=== PATIENT | female | born 1980 | race Caucasian/White ===

== ENCOUNTER 2016-07-21 12:34 | Inpatient (IN) | payer OTHER ==
[~2016-07-21] VITALS: Ht 165.1 cm; Wt 79.9 kg
[~2016-07-21 12:34] MED LIST: AMBI10TA PO; CIPR500T89 PO; CITA20TA4 PO; COLA100C PO; FLAG500T PO; GABA300C3 PO; IBUP-1114 PO; MELA0.02 PO; MELA3TAB PO; NORCOTAB PO; PREN1TAB11 PO; SERO200T PO; TYLE325T5 PO; ZOFR4TAB3 PO
--- NOTE | 2016-07-21 13:59 | REP ---
Clinical: Right upper quadrant pain and biliary colic. Comparison: 07/15/2016. Findings: Gallbladder is again distended and there is sonographic Cummings sign along with minimal common bile duct dilatation to 7.5 mm. Sludge identified on prior examination is less visible on current examination. No obvious gallstones, wall thickening or pericholecystic fluid is appreciated. Liver and pancreas are normal in contour, size, echogenicity without focal hepatic or pancreatic lesions identified. The right kidney is normal and measures 11.1 x 4.7 x 5.1 cm. No ascites. Impression: Hydropic appearance to the gallbladder with positive sonographic Cummings's sign and minimal common bile duct dilatation suggest the possibility of acalculous cholecystitis. Signed by Yao Ruiz MD 07/21/2016 01:50 P
[2016-07-21] MEDS ORDERED: MORPHINE 4 MG/ML 1ML SYRINGE As Ordered ONE (14:12)
[2016-07-21] MEDS ORDERED: PROMETHAZINE INJ 25 MG/ML VIAL (J2550) As Ordered ONE (14:13)
[2016-07-21 14:22] LABS: BASO # 0.2 K/mm3 (0.0-0.2); BASO % 1.1 % (0.0-1.0); EOS # 0.3 K/mm3 (0.0-0.50); EOS % 1.9 % (0.0-3.0); LARGE UNSTAINED CELL # 0.4 K/mm3 (0.0-0.4); LARGE UNSTAINED CELL % 2.3 % (0.0-4.0); LYMPH # 2.7 K/mm3 (1.5-4.5); LYMPH % 13.3 % (24.0-44.0); MEAN CORPUSCULAR HEMOGLOBIN 29.7 pg (27.0-33.0); MEAN CORPUSCULAR HGB CONC 31.4 g/dl (32.0-36.5); MEAN CORPUSCULAR VOLUME 94.5 fl (80.0-96.0); MONO # 0.9 K/mm3 (0.0-0.8); MONO % 4.8 % (0.0-5.0); NEUTROPHILS # 13.4 K/mm3 (1.8-7.7); NEUTROPHILS % 76.7 % (36.0-66.0); PLATELET COUNT, AUTOMATED 734 k/mm3 (150-450); RED CELL DISTRIBUTION WIDTH 14.3 % (11.5-14.5); WHITE BLOOD COUNT 17.5 K/mm3 (4.0-10.0)
[2016-07-21 14:47] LABS: ALBUMIN 2.7 GM/DL (3.2-5.2); ALBUMIN/GLOBULIN RATIO 0.68 (1.00-1.93); ALKALINE PHOSPHATASE 78 U/L (45-117); ALT/SGPT 19 U/L (12-78); ANION GAP 10 MEQ/L (8-16); AST/SGOT 15 U/L (15-37); BILIRUBIN,DIRECT < 0.1 MG/DL (0.0-0.2); BILIRUBIN,TOTAL 0.2 MG/DL (0.2-1.0); BLOOD UREA NITROGEN 8 MG/DL (7-18); CALCIUM LEVEL 8.7 MG/DL (8.5-10.1); CARBON DIOXIDE LEVEL 26 MEQ/L (21-32); CHLORIDE LEVEL 107 MEQ/L (98-107); CREATININE FOR GFR 0.83 MG/DL (0.55-1.02); GLOMERULAR FILTRATION RATE > 60.0 (>60); GLUCOSE, FASTING 91 MG/DL (70-105); SODIUM LEVEL 143 MEQ/L (136-145); TOTAL PROTEIN 6.7 GM/DL (6.4-8.2)
[2016-07-21] MEDS ORDERED: ONDANSETRON 4MG/2ML VIAL (J2405) As Ordered ONE (15:04)
[2016-07-21] MEDS ORDERED: KETOROLAC 30 MG/ML VIAL (J1885) As Ordered ONE (15:04)
[2016-07-21] MEDS ORDERED: KETOROLAC 30 MG/ML VIAL (J1885) IV PRN (15:15)
[2016-07-21] MEDS ORDERED: ACETAMINOPHEN TAB 650MG DOSE (2X325MG) PO PRN (15:15)
[2016-07-21] MEDS ORDERED: ONDANSETRON 4MG/2ML VIAL (J2405) IV PRN (15:15)
[2016-07-21] MEDS ORDERED: HYDR1TAB97 PO (15:19)
[2016-07-21] MEDS ORDERED: FLAG500T PO (15:19)
[2016-07-21] MEDS ORDERED: CIPR500T3 PO (15:19)
[2016-07-21 16:18] VITALS: BP 114/64
--- NOTE | 2016-07-21 16:28 | EDDOCDS ---
Nurse's Notes [facility] Name: Spring Sample Age: 36 yrs Sex: Female : 1980 Arrival Date: 07/21/2016 Time: 12:34 Bed 19 Private MD: BJ Boss Diagnosis: Hydrops of gallbladder;Colic Presentation: 07/21 12:56 Presenting complaint: Patient states: that she was supposed to have surgery to remove ms18 her gallbladder and is now c/o NVD today and was told by her doctor to come to the ER to be evaluated. Adult Sepsis Screening: The patient does not have new or worsening altered mentation. Patient's respiratory rate is less than 22. Systolic blood pressure is greater than 100. Patient has a qSOFA score of 0- Negative Sepsis Screen. Suicide/Homicide risk assessment- the patient denies having any suicidal and/or homicidal ideations and does not present with any other emotional, behavioral or mental health complaints. Status: The patient is a dependent. is retired . Transition of care: patient was not received from another setting of care. 12:56 Acuity: BULMARO Level 3 ms18 12:56 Method Of Arrival: Walkin/Carried/Asstd ms18 Triage Assessment: 13:00 General: Appears in no apparent distress, comfortable, Behavior is appropriate for age, ms18 cooperative. Pain: Location: right upper quadrant and left upper quadrant Pain currently is 9 out of 10 on a pain scale. HIV screening NA for this visit. Neurological: No deficits noted. Respiratory: No deficits noted. GI: Abdomen is non- distended Reports diarrhea, nausea, vomiting. Derm: Skin is pink, warm & dry. normal. 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 Ambien 10 mg Oral tab 1 tab once daily 2. Seroquel 200 mg oral tab 1 tab nightly 3. melatonin 10 mg Oral tab nightly 4. citalopram 40 mg Oral tab 1 tab once daily 5. hydrocodone every 6 hours as needed, not sure of the dose - PMHx: Anxiety; Depression; PTSD; - PSHx: Breast Augmentation; D & C; Tonsillectomy; - Social history: Smoking status: Patient uses tobacco products, current some day smoker. No barriers to communication noted, The patient speaks fluent Haitian. - Family history: Not pertinent. - : The pt / caregiver states he / she is not on anticoagulants. Home medication list is obtained from the patient. - Exposure Risk Screening:: None identified. Screenin:13 Screening information is obtained from the patient. Primary language is Haitian. Fall jam1 risk: No risks identified. Assistance ADL's: requires no assistance with activities of daily living. Abuse/DV Screen: The patient / caregiver reports he/she is: not in a situation that causes fear, pain or injury. Nutritional screening: No deficits noted. Exposure Risk Screening: None identified. Advance Directives: Currently, there is no health care proxy. There is no active DNR order. There is no living will. There is no Power of Dining Car Steward. Advance directive information has not previously been placed in an [facility] medical record. Further advance directive information is declined. home support is adequate. Assessment: 14:17 General: Appears in no apparent distress, uncomfortable, Behavior is appropriate for [facility] age, cooperative, pleasant. Pain: Location: right upper quadrant and left upper quadrant Pain currently is 9 out of 10 on a pain scale. Neurological: Level of Consciousness is awake, alert, Oriented to person, place, time. Respiratory: Airway is patent Respiratory effort is even, unlabored, Respiratory pattern is regular, symmetrical. GI: Abdomen is non- distended Bowel sounds present X 4 quads. Abd is soft and non tender X 4 quads. Reports nausea. Derm: Skin is. 14:17 Derm: Skin is pink, warm & dry. [facility] 15:15 General: Appears in no apparent distress, comfortable, Behavior is cooperative. Pain: lf1 Location: left upper quadrant and right upper quadrant Pain currently is 9 out of 10 on a pain scale. Neurological: Level of Consciousness is awake, alert, obeys commands. EENT: No deficits noted. Respiratory: Respiratory effort is even, unlabored, Breath sounds are clear bilaterally. GI: Abdomen is obese, Bowel sounds present X 4 quads. Abd is soft Abd is tender to palpation in right upper quadrant and left upper quadrant Reports upper abd pain, nausea. : No deficits noted. Derm: Skin is normal. Injury Description: No known injury. 16:00 General: Appears in no apparent distress, comfortable, Behavior is cooperative. Pain: jf3 Location: right upper quadrant, left upper quadrant and right lower quadrant Pain currently is 8 out of 10 on a pain scale. 16:00 Neurological: Level of Consciousness is awake, alert, Oriented to person, place, time. jf3 Cardiovascular: Capillary refill < 3 seconds Heart tones S1 S2 present Chest pain is denied. Respiratory: Airway is patent Respiratory effort is even, unlabored, Respiratory pattern is regular, symmetrical, Breath sounds are clear bilaterally. Denies shortness of breath at rest. GI: Abdomen is non- distended Bowel sounds present X 4 quads. Abd is soft X 4 quads Abd is tender to palpation in right upper quadrant and right lower quadrant Reports diarrhea, nausea, vomiting. Derm: Skin is pink, warm & dry. Vital Signs: 12:35 BP 148 / 88; Pulse 111; Resp 18 S; Temp 98.9(O); Pulse Ox 97% on R/A; Weight 78.93 kg dd6 (R); Height 5 ft. 5 in. (165.10 cm) (R); 15:15 BP 119 / 57; Pulse 77; Resp 16; Temp 96.7; Pulse Ox 97% ; Pain 9/10; lf1 16:00 BP 114 / 64; Pulse 75; Resp 18; Temp 97.9(O); Pulse Ox 98% on R/A; Pain 8/10; jf3 12:35 Body Mass Index 28.95 (78.93 kg, 165.10 cm) dd6 Vitals: 12:35 Log In Time: July 21, 2016 at 12:33. dd6 ED Course: 12:35 Patient visited by Vipul Hauser PCA. dd6 12:35 Karyn [facility] is Private Physician. dd6 12:35 Patient moved to Waiting dd6 12:36 Patient moved to Pre RCE dd6 12:58 Triage Initiated ms18 13:18 Bear Mahoney PA-C is PHCP. ar2 13:18 Bethany Yates MD is Attending Physician. ar2 13:28 Patient moved to Triage 1 ms18 13:31 Patient visited by Bear Mahoney PA-C. ar2 13:32 Patient moved to I5 / M5 ct3 14:07 [facility] Payment Agreement was scanned into [employer] and attached to record. jp5 14:13 Pt greeted and oriented to ED. Patient advised of names of staff involved in care, [facility] location of call griff[place], wait times and NPO status. Patient has correct armband on for positive identification. Placed in gown. Bed in low position. Call light in reach. Side rails up X 1. Door closed. 14:14 Patient name changed from Spring\S\\S\Sample\S\ to Spring\S\Jazmin\S\Sample. EDMS 14:14 BMP Sent. jmk 14:14 CBC with Diff Sent. jmk 14:14 Lipase Sent. jmk 14:14 Liver Profile Sent. jmk 14:17 The patient / caregiver is instructed regarding the plan of care and ED course. [facility] 14:17 Inserted saline lock: 20 gauge in left antecubital area and blood collected. The [facility] patient tolerated the procedure well. Labs drawn. (by ED staff). Sent per order to lab. 14:19 Patient visited by Florecita Brown RN. kr3 14:19 Gallbladder US Returned. EDMS 14:20 Patient visited by Karen Alcantar RN. [facility] 14:58 Sung Ferris DO is Hospitalizing Provider. ar2 15:14 Patient visited by Cherelle Eddy,DINESH. lf1 15:16 Patient visited by Karen Cummings PCA. jam1 15:20 Patient visited by Cherelle Eddy RN. lf1 15:36 Patient moved to [facility] 16:21 IV is intact, with fluids infusing freely, with good blood return, Flushed. No jf3 procedures done that require assistance. 16:24 Patient visited by Marcos Kasper RN. jf3 Administered Medications: 14:19 Drug: NS 0.9% 1000 ml [sodium chloride 0.9 % intravenous solution] Route: IV; Rate: kr3 bolus; Site: left antecubital; 16:25 Follow up: IV Status: Completed infusion; IV Intake: 1000ml jf3 14:19 Drug: Promethazine 12.5 mg [promethazine 25 mg/mL injection solution (0.5 mL)] Route: kr3 IVP; Site: left antecubital; 14:47 Follow up: Response: Nausea is resolved kr3 14:19 Drug: morphine 4 mg [morphine 4 mg/mL intravenous cartridge (1 mL)] Route: IVP; Site: kr3 left antecubital; 14:47 Follow up: Response: Pain is unchanged, physician notified kr3 15:14 Drug: Ondansetron 4 mg [ondansetron HCl 2 mg/mL intravenous solution (2 mL)] Route: lf1 IVP; Site: left antecubital; 15:15 Drug: ketorolac 30 mg [ketorolac 30 mg/mL (1 mL) injection solution (1 mL)] Route: IVP; lf1 Site: left antecubital; Point of Care Testing: Urine : 14:24 hCG Reading: Negative; jam1 Ranges: Intake: 16:25 IV: 1000.00ml; Total: 1000.00ml. jf3 Order Results: Lab Order: BMP; SPEC'M 07/21/16 14:13 Test: GLUCOSE, FASTING; Value: 91; Range: 70-105; Units: MG/DL; Status: F Test: BLOOD UREA NITROGEN; Value: 8; Range: 7-18; Units: MG/DL; Status: F Test: CREATININE FOR GFR; Value: 0.83; Range: 0.55-1.02; Units: MG/DL; Status: F Test: GLOMERULAR FILTRATION RATE; Value: > 60.0; Range: >60; Status: F Test: SODIUM LEVEL; Value: 143; Range: 136-145; Units: MEQ/L; Status: F Test: POTASSIUM SERUM; Value: 3.0; Range: 3.5-5.1; Abnormal: Below low normal; Units: MEQ/L; Status: F Test: CHLORIDE LEVEL; Value: 107; Range: 98-107; Units: MEQ/L; Status: F Test: CARBON DIOXIDE LEVEL; Value: 26; Range: 21-32; Units: MEQ/L; Status: F Test: ANION GAP; Value: 10; Range: 8-16; Units: MEQ/L; Status: F Test: CALCIUM LEVEL; Value: 8.7; Range: 8.5-10.1; Units: MG/DL; Status: F Test Note: ; Units are mL/min/1.73 m2 Chronic Kidney Disease Staging per NKF: Stage I & II GFR >=60 Normal to Mildly Decreased Stage III GFR 30-59 Moderately Decreased Stage IV GFR 15-29 Severely Decreased Stage V GFR <15 Very Little GFR Left ESRD GFR <15 on [employer] Lab Order: CBC with Diff; SPEC'M 07/21/16 14:13 Test: WHITE BLOOD COUNT; Value: 17.5; Range: 4.0-10.0; Abnormal: Above high normal; Units: K/mm3; Status: F Test: RED BLOOD COUNT; Value: 3.88; Range: 4.00-5.40; Abnormal: Below low normal; Units: M/mm3; Status: F Test: HEMOGLOBIN; Value: 11.5; Range: 12.0-16.0; Abnormal: Below low normal; Units: g/dl; Status: F Test: HEMATOCRIT; Value: 36.7; Range: 36.0-47.0; Units: %; Status: F Test: MEAN CORPUSCULAR VOLUME; Value: 94.5; Range: 80.0-96.0; Units: fl; Status: F Test: MEAN CORPUSCULAR HEMOGLOBIN; Value: 29.7; Range: 27.0-33.0; Units: pg; Status: F Test: MEAN CORPUSCULAR HGB CONC; Value: 31.4; Range: 32.0-36.5; Abnormal: Below low normal; Units: g/dl; Status: F Test: RED CELL DISTRIBUTION WIDTH; Value: 14.3; Range: 11.5-14.5; Units: %; Status: F Test: PLATELET COUNT, AUTOMATED; Value: 734; Range: 150-450; Abnormal: Above high normal; Units: k/mm3; Status: F Test: NEUTROPHILS %; Value: 76.7; Range: 36.0-66.0; Abnormal: Above high normal; Units: %; Status: F Test: LYMPH %; Value: 13.3; Range: 24.0-44.0; Abnormal: Below low normal; Units: %; Status: F Test: MONO %; Value: 4.8; Range: 0.0-5.0; Units: %; Status: F Test: EOS %; Value: 1.9; Range: 0.0-3.0; Units: %; Status: F Test: BASO %; Value: 1.1; Range: 0.0-1.0; Abnormal: Above high normal; Units: %; Status: F Test: LARGE UNSTAINED CELL %; Value: 2.3; Range: 0.0-4.0; Units: %; Status: F Test: NEUTROPHILS #; Value: 13.4; Range: 1.8-7.7; Abnormal: Above high normal; Units: K/mm3; Status: F Test: LYMPH #; Value: 2.7; Range: 1.5-4.5; Units: K/mm3; Status: F Test: MONO #; Value: 0.9; Range: 0.0-0.8; Abnormal: Above high normal; Units: K/mm3; Status: F Test: EOS #; Value: 0.3; Range: 0.0-0.50; Units: K/mm3; Status: F Test: BASO #; Value: 0.2; Range: 0.0-0.2; Units: K/mm3; Status: F Test: LARGE UNSTAINED CELL #; Value: 0.4; Range: 0.0-0.4; Units: K/mm3; Status: F Lab Order: Lipase; SPEC'M 07/21/16 14:13 Test: LIPASE; Value: 57; Range: 73-393; Abnormal: Below low normal; Units: U/L; Status: F Lab Order: Liver Profile; SPEC'M 07/21/16 14:13 Test: AST/SGOT; Value: 15; Range: 15-37; Units: U/L; Status: F Test: ALT/SGPT; Value: 19; Range: 12-78; Units: U/L; Status: F Test: ALKALINE PHOSPHATASE; Value: 78; Range: 45-117; Units: U/L; Status: F Test: BILIRUBIN,TOTAL; Value: 0.2; Range: 0.2-1.0; Units: MG/DL; Status: F Test: BILIRUBIN,DIRECT; Value: < 0.1; Range: 0.0-0.2; Units: MG/DL; Status: F Test: TOTAL PROTEIN; Value: 6.7; Range: 6.4-8.2; Units: GM/DL; Status: F Test: ALBUMIN; Value: 2.7; Range: 3.2-5.2; Abnormal: Below low normal; Units: GM/DL; Status: F Test: ALBUMIN/GLOBULIN RATIO; Value: 0.68; Range: 1.00-1.93; Abnormal: Below low normal; Status: F Radiology Order: Gallbladder US Test: Gallbladder US REASON FOR EXAMINATION: RUQ ;Biliary Colic/RUQ pain; Clinical: Right upper quadrant pain and biliary colic.; ; Comparison: 07/15/2016.; ; Findings:; Gallbladder is again distended and there is sonographic Cummings sign along with; minimal common bile duct dilatation to 7.5 mm. Sludge identified on prior; examination is less visible on current examination. No obvious gallstones, wall; thickening or pericholecystic fluid is appreciated.; ; Liver and pancreas are normal in contour, size, echogenicity without focal; hepatic or pancreatic lesions identified. The right kidney is normal and; measures 11.1 x 4.7 x 5.1 cm. No ascites.; ; Impression:; Hydropic appearance to the gallbladder with positive sonographic Cummings's sign; and minimal common bile duct dilatation suggest the possibility of acalculous; cholecystitis.; ; ; Signed by; Yao Ruiz MD 07/21/2016 01:50 P; Outcome: 14:18 Ultrasound Study completed. [facility] 14:59 Decision to Hospitalize by Provider. [facility] 16:21 Admission hand-off: Report called to Madelyn Pineda RN on PEDs. [facility] 16:25 Discharge Assessment: patient administered narcotics - yes. Patient was admitted to the [address] or transferred to another facility. The following High Risk Discharge criteria are identified: None. Admitted to Pediatrics accompanied by tech. Condition: stable. Property :Personal belongings accompany Pt. 16:27 Patient left the ED. [facility] Signatures: Dispatcher [employer] EDMS Wilian Pace,RN Karen Rock, SENIOR TECHNICAL SPECIALIST SENIOR TECHNICAL SPECIALIST jam1 Florecita Brown,RN RN kr3 Cherelle Eddy,RN RN lf1 Bear Mahoney, PA-Melita PA-C ar2 Vipul Hauser, SENIOR TECHNICAL SPECIALIST SENIOR TECHNICAL SPECIALIST dd6 Tona Strickland, SENIOR TECHNICAL SPECIALIST SENIOR TECHNICAL SPECIALIST ct3 Karen Alcantar RN RN [facility] Lea Brown,RN RN ms18 Irina Meredith jp5 Marcos Kasper,DINESH RN jf3 MTDD
--- NOTE | 2016-07-21 16:28 | EDDOCDS ---
Physician Documentation [facility] Name: Spring Sample Age: 36 yrs Sex: Female : 1980 Arrival Date: 07/21/2016 Time: 12:34 Bed 19 Private MD: BJ Boss Disposition: 07/21/16 14:59 Hospitalization ordered by Sung Ferris for Inpatient Admission. Preliminary diagnosis are Hydrops of gallbladder, Colic. - Bed requested for M PED. - Status is Inpatient Admission. jf3 - Condition is Stable. - Problem is new. - Symptoms are unchanged. Historical: - Allergies: no known allergies; - Home Meds: 1. Ambien 10 mg Oral tab 1 tab once daily 2. Seroquel 200 mg oral tab 1 tab nightly 3. melatonin 10 mg Oral tab nightly 4. citalopram 40 mg Oral tab 1 tab once daily 5. hydrocodone every 6 hours as needed, not sure of the dose - PMHx: Anxiety; Depression; PTSD; - PSHx: Breast Augmentation; D & C; Tonsillectomy; - Social history: Smoking status: Patient uses tobacco products, current some day smoker. No barriers to communication noted, The patient speaks fluent Nepalese. - Family history: Not pertinent. - : The pt / caregiver states he / she is not on anticoagulants. Home medication list is obtained from the patient. - Exposure Risk Screening:: None identified. 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 5 in. (165.10 cm) (R); 15:15 BP 119 / 57; Pulse 77; Resp 16; Temp 96.7; Pulse Ox 97% ; Pain 9/10; lf1 16:00 BP 114 / 64; Pulse 75; Resp 18; Temp 97.9(O); Pulse Ox 98% on R/A; Pain 8/10; jf3 12:35 Body Mass Index 28.95 (78.93 kg, 165.10 cm) dd6 MDM: 12:42 If pre-RCE wait time >60 minutes, inform reg. staff to do full reg ordered. ar2 12:42 If pt is female >10yo <50yo order UCG ordered. ar2 12:42 Undress patient appropriately for examination ordered. ar2 12:42 Gallbladder US Ordered. EDMS 12:43 BMP Ordered. EDMS 12:43 CBC with Diff Ordered. EDMS 12:43 Lipase Ordered. EDMS 12:44 Liver Profile Ordered. EDMS 13:31 IV Saline Lock ordered. ar2 13:51 NS 0.9% 1000 ml IV at bolus once ordered. ar2 13:51 Promethazine 12.5 mg IVP once; dilute and administer 30-60 minutes ordered. ar2 13:51 morphine 4 mg IVP once ordered. ar2 14:07 [facility] Payment Agreement was scanned into [employer] and attached to record. jp5 14:07 Financial registration complete. jp5 14:19 UCG by Nursing ordered. [facility] 14:43 CBC with Diff Reviewed. ar2 14:43 Gallbladder US Reviewed. ar2 14:53 BMP Reviewed. ar2 14:53 Lipase Reviewed. ar2 14:53 Liver Profile Reviewed. ar2 14:57 ketorolac 30 mg IVP once ordered. ar2 14:57 Ondansetron 4 mg IVP once ordered. ar2 14:58 BED REQUEST+ADM ordered. EDMS 15:17 Admission / Observation Status ordered. EDMS 15:17 REGULAR DIET ordered. EDMS 15:17 NPO DIET ordered. EDMS Point of Care Testing: Urine : 14:24 hCG Reading: Negative; jam1 Ranges: Administered Medications: 14:19 Drug: NS 0.9% 1000 ml [sodium chloride 0.9 % intravenous solution] Route: IV; Rate: kr3 bolus; Site: left antecubital; 16:25 Follow up: IV Status: Completed infusion; IV Intake: 1000ml jf3 14:19 Drug: Promethazine 12.5 mg [promethazine 25 mg/mL injection solution (0.5 mL)] Route: kr3 IVP; Site: left antecubital; 14:47 Follow up: Response: Nausea is resolved kr3 14:19 Drug: morphine 4 mg [morphine 4 mg/mL intravenous cartridge (1 mL)] Route: IVP; Site: kr3 left antecubital; 14:47 Follow up: Response: Pain is unchanged, physician notified kr3 15:14 Drug: Ondansetron 4 mg [ondansetron HCl 2 mg/mL intravenous solution (2 mL)] Route: lf1 IVP; Site: left antecubital; 15:15 Drug: ketorolac 30 mg [ketorolac 30 mg/mL (1 mL) injection solution (1 mL)] Route: IVP; lf1 Site: left antecubital; Signatures: Dispatcher [employer] EDBear Copeland PA-C PA-C ar2 Karen Alcantar,RN RN giorgio Lea BrownRN RN ms18 Irina Meredith jp5 Marcos KasperRN RN jf3 Cherelle Jacobson RN RN [facility] Florecita Brown RN kr3 Cherelle Eddy RN lf1 The chart was reviewed and I authenticate all verbal orders and agree with the evaluation and treatment provided.Attachments: 14:07 [facility] Payment Agreement jp5 MTDD
[2016-07-21 16:30] VITALS: BP 118/63
[2016-07-21] MEDS: metroNIDAZOLE 500 MG in APPROPRIATE DILUENT 1 EA IV SCH ×2 (16:54→22:06)
[2016-07-21] MEDS: PANTOPRAZOLE 40MG TAB (PROTONIX) PO SCH (16:55)
[2016-07-21] MEDS: KCL 20MEQ IN D5/0.45NS 1000ML 1,000 ML IV SCH (16:55)
[2016-07-21] MEDS: CIPROFLOXACIN 400 MG in APPROPRIATE DILUENT 1 EA IV SCH (17:53)
[2016-07-21] MEDS: NORCO, ANEXSIA 5/325MG TABLET (HYDROcodone/ACETAMINOPHEN) PO PRN (17:54)
[2016-07-21] MEDS: MORPHINE 2 MG/ML 1ML SYRINGE IV PRN ×2 (18:48→21:17)
[2016-07-21 20:00] VITALS: BP 129/59
[2016-07-21] MEDS: HEPARIN SOD (PORCINE) 5000 UNITS/ML VIAL SC SCH (21:09)
[2016-07-21] MEDS: SENOKOT S TAB PO SCH (21:09)
[2016-07-21] MEDS: QUEtiapine FUMARATE 200 MG TAB PO SCH (21:10)
[2016-07-21] MEDS: GABAPENTIN 300 MG CAP PO SCH (21:10)
[2016-07-21] MEDS: zolPIDEM TARTRATE 5 MG TAB PO SCH (21:10)
[2016-07-21] MEDS: KETOROLAC 30 MG/ML VIAL (J1885) IV PRN (22:07)
[2016-07-22] VITALS (10 sets, daily range): BP systolic 88–130; BP diastolic 51–72
[2016-07-22] MEDS: MORPHINE 2 MG/ML 1ML SYRINGE IV PRN (03:45)
[2016-07-22] MEDS: CIPROFLOXACIN 400 MG in APPROPRIATE DILUENT 1 EA IV SCH ×2 (04:25→17:36)
[2016-07-22] MEDS: KCL 20MEQ IN D5/0.45NS 1000ML 1,000 ML IV SCH ×3 (04:25→14:44)
[2016-07-22] MEDS: metroNIDAZOLE 500 MG in APPROPRIATE DILUENT 1 EA IV SCH ×4 (05:27→22:59)
[2016-07-22 06:46] LABS: MEAN CORPUSCULAR HEMOGLOBIN 29.9 pg (27.0-33.0); MEAN CORPUSCULAR HGB CONC 31.9 g/dl (32.0-36.5); MEAN CORPUSCULAR VOLUME 93.8 fl (80.0-96.0); RED CELL DISTRIBUTION WIDTH 13.7 % (11.5-14.5); WHITE BLOOD COUNT 11.6 K/mm3 (4.0-10.0)
[2016-07-22 06:53] LABS: ANION GAP 9 MEQ/L (8-16); BLOOD UREA NITROGEN 10 MG/DL (7-18); CALCIUM LEVEL 7.8 MG/DL (8.5-10.1); CARBON DIOXIDE LEVEL 25 MEQ/L (21-32); CHLORIDE LEVEL 111 MEQ/L (98-107); GLOMERULAR FILTRATION RATE > 60.0 (>60); GLUCOSE, FASTING 89 MG/DL (70-105); MAGNESIUM LEVEL 1.8 MG/DL (1.8-2.4); POTASSIUM SERUM 3.1 MEQ/L (3.5-5.1); SODIUM LEVEL 145 MEQ/L (136-145)
[2016-07-22] MEDS: PANTOPRAZOLE 40MG TAB (PROTONIX) PO SCH (08:20)
[2016-07-22] MEDS: KETOROLAC 30 MG/ML VIAL (J1885) IV PRN ×2 (08:21→20:18)
[2016-07-22] MEDS: CitaloPRAM (CeleXA) 20 MG TAB PO SCH (08:21)
[2016-07-22] MEDS: SENOKOT S TAB PO SCH ×2 (08:35→20:17)
[2016-07-22] MEDS: HEPARIN SOD (PORCINE) 5000 UNITS/ML VIAL SC SCH ×2 (08:35→20:16)
--- NOTE | 2016-07-22 09:21 | HPE ---
DATE: 07/21/2016 CHIEF COMPLAINT: Right upper quadrant pain. HISTORY OF PRESENT ILLNESS: The patient is a 36-year-old female who originally came the ER last Thursday with nausea, vomiting, right upper quadrant pain that had been going on for about 12 days. She is discharged home, came back again on had similar symptoms and she was diagnosed with likely acute cholecystitis. She was kept overnight started on IV antibiotics in the morning of 07/18 she was feeling much improved. White count came down from 16 to 11. She wanted to wait and use the antibiotics for 2 weeks and then have her gallbladder out in 2 weeks after the inflammation had improved. However, over this weekend, she had persistent right upper quadrant pain with increasing nausea and vomiting. She called me this morning and said that she could not wait any longer and I had her come into the emergency room to be checked out make sure she did not have any choledocholithiasis or pancreatitis. That was checked out, therefore, they called me to admit her with a plan for cholecystectomy today or tomorrow. PAST MEDICAL HISTORY: Anxiety, depression, Post-traumatic stress disorder (PTSD). PAST SURGERIES: Eye surgery, tonsillectomy, breast augmentation, D C. HOME MEDICATIONS: - Ambien - citalopram - Seroquel - melatonin ALLERGIES: None. SOCIAL HISTORY: Denies any drug or alcohol abuse. Smokes daily. FAMILY HISTORY: Noncontributory. REVIEW OF SYSTEMS: Pertinent positives and negatives stated in the HPI. PHYSICAL EXAMINATION: General: Alert and oriented times three. No acute stress. Vitals: Stable, afebrile. HEENT: Pupils equal round react to light accommodation. Heart: S1-S2 regular rate. Lungs: Clear to auscultation bilaterally. Abdomen: Soft, tender to palpation right upper quadrant. No rebound, guarding, rigidity. Bowel sounds positive. Extremities: No clubbing, cyanosis or edema. LABORATORY DATA: White count 17.5, hemoglobin 11.5, platelets 734, potassium 3, sodium 143, total bilirubin 0.2, AST 15, ALT 99, alkaline phosphatase 78, lipase 57. IMAGING STUDIES: Gallbladder ultrasound shows a distended gallbladder without any signs of gallstones wall thickening or pericholecystic fluid. Impression is hydropic appearance of the gallbladder with a positive sonographic Cummings's sign likely suggesting acalculous cholecystitis. ASSESSMENT/PLAN: The patient is a 36-year-old female with likely acute cholecystitis. Recommendation at this time is to admit her and keep her nothing by mouth after midnight and start her on IV fluids with the plan for laparoscopic cholecystectomy tomorrow. Risks of the procedure have been discussed in detail with the patient not limited to but including bleeding, infection, hernia formation, damage to surrounding structures, and possible need for further surgery. She understands and will be scheduled for tomorrow afternoon.
[2016-07-22] MEDS ORDERED: LIDOCAINE 2% INJ 100 MG/5 ML SDV (FOR ANES.) As Ordered ONE (10:43)
[2016-07-22] MEDS ORDERED: fentaNYL 100 MCG/2 ML INJECTION (J3010) As Ordered ONE ×3 (10:43→13:22)
[2016-07-22] MEDS ORDERED: ROCURONIUM BROMIDE 50 MG/5 ML VIAL As Ordered ONE (10:43)
[2016-07-22] MEDS ORDERED: PROPOFOL 200 MG/20 ML VIAL As Ordered ONE (10:43)
[2016-07-22] MEDS ORDERED: MIDAZOLAM INJ 2 MG/2 ML VIAL (J2250) As Ordered ONE (10:43)
[2016-07-22] MEDS ORDERED: ONDANSETRON 4MG/2ML VIAL (J2405) As Ordered ONE (10:44)
[2016-07-22] MEDS ORDERED: NEOSTIGMINE 1MG/ML 5 ML SYRINGE (J2710) As Ordered ONE (10:44)
[2016-07-22] MEDS ORDERED: GLYCOPYRROLATE INJ 0.2 MG/ML 2 ML VIAL As Ordered ONE (10:44)
[2016-07-22] MEDS ORDERED: BUPIVACAINE/EPIN 0.25% 30 ML VIAL As Ordered ONE (10:47)
[2016-07-22] MEDS ORDERED: KETOROLAC 60 MG/2 ML VIAL (J1885) As Ordered ONE (10:49)
[2016-07-22] MEDS ORDERED: BUPIVACAINE/EPIN 0.25% 30 ML VIAL XX ONE (12:31)
[2016-07-22] MEDS: fentaNYL 100 MCG/2 ML INJECTION (J3010) IV PRN ×6 (13:03→13:30)
[2016-07-22] MEDS ORDERED: LR 1,000 ML IV SCH (13:15)
[2016-07-22] MEDS ORDERED: ONDANSETRON 4MG/2ML VIAL (J2405) IV PRN (13:15)
[2016-07-22] MEDS ORDERED: HYDROmorphone HCL 1 MG/ML SYRINGE (J1170) IV PRN (13:15)
[2016-07-22] MEDS ORDERED: PERCOCET 5MG/325MG TAB As Ordered ONE ×2 (13:50→14:13)
[2016-07-22] MEDS: PERCOCET 5MG/325MG TAB PO PRN ×2 (13:52→14:15)
[2016-07-22] MEDS ORDERED: KCL 20MEQ IN D5/.45NACL 1000ML As Ordered ONE (14:13)
--- NOTE | 2016-07-22 17:29 | RO ---
DATE OF PROCEDURE: 07/22/2016 PREOPERATIVE DIAGNOSIS: Acute cholecystitis. POSTOPERATIVE DIAGNOSIS: Acute cholecystitis. PROCEDURE: Laparoscopic cholecystectomy. SURGEON: Dr. Sung Ferris RETURNED GOODS RECEIVING CLERK: None. ANESTHESIA: General. ESTIMATED BLOOD LOSS: 10 mL. COMPLICATIONS: None. INDICATIONS FOR PROCEDURE: The patient is a 36-year-old female who has had persistent right upper quadrant abdominal pain, nausea, vomiting and elevated white count for the past week. She has been into the emergency room (ER) twice. She tried outpatient therapy with antibiotics which failed; therefore, plan is for laparoscopic cholecystectomy. Risks and benefits of the procedure not limited to but including bleeding, infection, hernia formation, damage to surrounding structures, need for further surgery were discussed in detail with the patient. Informed consent was obtained and procedure was planned. DESCRIPTION OF PROCEDURE: The patient was brought back to operating room #4. After sufficient sedation, the abdomen was sterilely prepped and draped. Next, a time-out was done to confirm proper patient, proper procedure. Following that, a stab incision was made in the left upper quadrant. Veress needle was inserted and the abdomen was insufflated to 15 mmHg. Next, a 5 mm umbilical incision was made. 5 mm OptiView port was then used to gain access to the abdomen. Once the abdomen was entered, Veress needle site was examined. There were no signs of injury. Veress needle was then removed, 10 mm port was placed subxiphoid, two 5 mm ports in the right upper quadrant. Gallbladder was grasped and elevated up towards the right shoulder. Cystic duct, cystic artery were both then dissected free using a combination of blunt and sharp dissection. Once they were both clearly identified, they were both doubly clipped and cut. Cystic duct was very large so after it was completely dissected, it was clipped, cut and then a PDS Endoloop was placed around the base of it to make sure that it was ligated completely. Once this was completed, the gallbladder was removed using electrocautery and brought out through the subxiphoid port site in a 10 mm EndoCatch bag. The right upper quadrant was irrigated to confirm hemostasis. The abdomen was then desufflated. Skin incisions were closed with #4-0 Vicryl subcuticular sutures. The abdomen was cleaned and dried. Steri-Strips, 4 x 4 and tape were applied thus ending the procedure.
[2016-07-22] MEDS: NORCO, ANEXSIA 5/325MG TABLET (HYDROcodone/ACETAMINOPHEN) PO PRN ×2 (18:42→23:00)
[2016-07-22] MEDS: QUEtiapine FUMARATE 200 MG TAB PO SCH (20:16)
[2016-07-22] MEDS: GABAPENTIN 300 MG CAP PO SCH (20:17)
[2016-07-22] MEDS: zolPIDEM TARTRATE 5 MG TAB PO SCH (20:17)
[2016-07-23] VITALS: BP 119/66
[2016-07-23] MEDS: KCL 20MEQ IN D5/0.45NS 1000ML 1,000 ML IV SCH (01:08)
[2016-07-23 04:00] VITALS: BP 103/63
[2016-07-23] MEDS: KETOROLAC 30 MG/ML VIAL (J1885) IV PRN (04:14)
[2016-07-23] MEDS: metroNIDAZOLE 500 MG in APPROPRIATE DILUENT 1 EA IV SCH (04:14)
[2016-07-23] MEDS: CIPROFLOXACIN 400 MG in APPROPRIATE DILUENT 1 EA IV SCH (05:54)
[2016-07-23] MEDS: NORCO, ANEXSIA 5/325MG TABLET (HYDROcodone/ACETAMINOPHEN) PO PRN (05:55)
[2016-07-23 06:58] LABS: MEAN CORPUSCULAR HEMOGLOBIN 30.1 pg (27.0-33.0); MEAN CORPUSCULAR HGB CONC 31.3 g/dl (32.0-36.5); MEAN CORPUSCULAR VOLUME 96.3 fl (80.0-96.0); RED CELL DISTRIBUTION WIDTH 14.6 % (11.5-14.5); WHITE BLOOD COUNT 11.1 K/mm3 (4.0-10.0)
[2016-07-23 07:08] LABS: ANION GAP 8 MEQ/L (8-16); BLOOD UREA NITROGEN 5 MG/DL (7-18); CARBON DIOXIDE LEVEL 25 MEQ/L (21-32); CHLORIDE LEVEL 113 MEQ/L (98-107); GLOMERULAR FILTRATION RATE > 60.0 (>60); GLUCOSE, FASTING 103 MG/DL (70-105); MAGNESIUM LEVEL 1.8 MG/DL (1.8-2.4); SODIUM LEVEL 146 MEQ/L (136-145)
[2016-07-23 08:00] VITALS: BP 110/66
[2016-07-23] MEDS: SENOKOT S TAB PO SCH (08:11)
[2016-07-23] MEDS: CitaloPRAM (CeleXA) 20 MG TAB PO SCH (08:11)
[2016-07-23] MEDS: PANTOPRAZOLE 40MG TAB (PROTONIX) PO SCH (08:11)
[2016-07-23] MEDS: HEPARIN SOD (PORCINE) 5000 UNITS/ML VIAL SC SCH (08:12)
[2016-07-23] MEDS ORDERED: SENN1TAB2 PO (08:39)
[2016-07-23] MEDS ORDERED: NORCOTAB PO (08:39)
[2016-07-23] MEDS ORDERED: INFLUENZA QUADRIVALENT PF VACCINE 0.5ML SYRINGE/VIAL (90686) IM ONE (09:00)
--- NOTE | 2016-07-23 09:33 | DSES ---
DATE OF ADMISSION: 07/21/2016 DATE OF DISCHARGE: 07/23/2016 ADMISSION DIAGNOSIS: Acute cholecystitis. DISCHARGE DIAGNOSIS: Acute cholecystitis. HOSPITAL COURSE: Patient is 28-year-old female presenting with a history of right upper quadrant abdominal pain and was diagnosed with acute cholecystitis in the ER on the second. She was kept overnight with plan for surgery on the third. On the third she underwent a laparoscopic cholecystectomy around noon. Procedure went as planned. Postoperatively she was walking, urinating without any difficulty pain was controlled a much improved in the right upper quadrant. Nausea and vomiting were improved and she was tolerating diet. This morning her white count is down to 11.1 from 17.5 on admission. Her abdomen is soft, tender to palpation appropriately. Incisions are clean, dry and intact. No nausea or vomiting overnight and is still tolerating diet. Plan is for discharge home today in followup me in the office in 2 weeks. PROCEDURES: On 07/22/2016 had laparoscopic cholecystectomy. PLAN: Discharge home today on follow up me in the office in 2 weeks. She was given prescriptions for Woodlyn and senna plus on discharge. No lifting more 20 pounds for next 2 weeks. No hot tubs, baths or pools for 5 days and okay to shower once she gets home.
--- NOTE | 2016-07-23 17:28 | EDDOCDS ---
Physician Documentation [facility] Name: Spring Sample Age: 36 yrs Sex: Female : 1980 Arrival Date: 07/21/2016 Time: 12:34 Bed 19 Private MD: BJ Boss Disposition: 07/21/16 14:59 Hospitalization ordered by Sung Ferris for Inpatient Admission. Preliminary diagnosis are Hydrops of gallbladder, Colic. - Bed requested for M PED. - Status is Inpatient Admission. jf3 - Condition is Stable. - Problem is new. - Symptoms are unchanged. Historical: - Allergies: no known allergies; - Home Meds: 1. Ambien 10 mg Oral tab 1 tab once daily 2. Seroquel 200 mg oral tab 1 tab nightly 3. melatonin 10 mg Oral tab nightly 4. citalopram 40 mg Oral tab 1 tab once daily 5. hydrocodone every 6 hours as needed, not sure of the dose - PMHx: Anxiety; Depression; PTSD; - PSHx: Breast Augmentation; D & C; Tonsillectomy; - Social history: Smoking status: Patient uses tobacco products, current some day smoker. No barriers to communication noted, The patient speaks fluent Vietnamese. - Family history: Not pertinent. - : The pt / caregiver states he / she is not on anticoagulants. Home medication list is obtained from the patient. - Exposure Risk Screening:: None identified. 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 5 in. (165.10 cm) (R); 15:15 BP 119 / 57; Pulse 77; Resp 16; Temp 96.7; Pulse Ox 97% ; Pain 9/10; lf1 16:00 BP 114 / 64; Pulse 75; Resp 18; Temp 97.9(O); Pulse Ox 98% on R/A; Pain 8/10; jf3 12:35 Body Mass Index 28.95 (78.93 kg, 165.10 cm) dd6 MDM: 12:42 If pre-RCE wait time >60 minutes, inform reg. staff to do full reg ordered. ar2 12:42 If pt is female >10yo <50yo order UCG ordered. ar2 12:42 Undress patient appropriately for examination ordered. ar2 12:42 Gallbladder US Ordered. EDMS 12:43 BMP Ordered. EDMS 12:43 CBC with Diff Ordered. EDMS 12:43 Lipase Ordered. EDMS 12:44 Liver Profile Ordered. EDMS 13:31 IV Saline Lock ordered. ar2 13:51 NS 0.9% 1000 ml IV at bolus once ordered. ar2 13:51 Promethazine 12.5 mg IVP once; dilute and administer 30-60 minutes ordered. ar2 13:51 morphine 4 mg IVP once ordered. ar2 14:07 [facility] Payment Agreement was scanned into [employer] and attached to record. jp5 14:07 Financial registration complete. jp5 14:19 UCG by Nursing ordered. [facility] 14:43 CBC with Diff Reviewed. ar2 14:43 Gallbladder US Reviewed. ar2 14:53 BMP Reviewed. ar2 14:53 Lipase Reviewed. ar2 14:53 Liver Profile Reviewed. ar2 14:57 ketorolac 30 mg IVP once ordered. ar2 14:57 Ondansetron 4 mg IVP once ordered. ar2 14:58 BED REQUEST+ADM ordered. EDMS 15:17 Admission / Observation Status ordered. EDMS 15:17 REGULAR DIET ordered. EDMS 15:17 NPO DIET ordered. EDMS 07/22 06:11 T-Sheet-- Draft Copy was scanned into [employer] and attached to record. [facility] Point of Care Testing: Urine : 07/21 14:24 hCG Reading: Negative; jam1 Ranges: Administered Medications: 14:19 Drug: NS 0.9% 1000 ml [sodium chloride 0.9 % intravenous solution] Route: IV; Rate: kr3 bolus; Site: left antecubital; 16:25 Follow up: IV Status: Completed infusion; IV Intake: 1000ml jf3 14:19 Drug: Promethazine 12.5 mg [promethazine 25 mg/mL injection solution (0.5 mL)] Route: kr3 IVP; Site: left antecubital; 14:47 Follow up: Response: Nausea is resolved kr3 14:19 Drug: morphine 4 mg [morphine 4 mg/mL intravenous cartridge (1 mL)] Route: IVP; Site: kr3 left antecubital; 14:47 Follow up: Response: Pain is unchanged, physician notified kr3 15:14 Drug: Ondansetron 4 mg [ondansetron HCl 2 mg/mL intravenous solution (2 mL)] Route: lf1 IVP; Site: left antecubital; 15:15 Drug: ketorolac 30 mg [ketorolac 30 mg/mL (1 mL) injection solution (1 mL)] Route: IVP; lf1 Site: left antecubital; Signatures: Dispatcher [employer] EDMS Bear Mahoney PA-C PA-C ar2 Karen AlcantarRN RN Lea Herzog RN RN ms18 Manjitl, Irina Orr jp5 Marcos Kasper,RN RN jf3 Cherelle Jacobson RN RN lmg Florecita Brown RN kr3 Cherelle Eddy RN lf1 The chart was reviewed and I authenticate all verbal orders and agree with the evaluation and treatment provided.Attachments: 14:07 [facility] Payment Agreement jp5 07/22 06:11 T-Sheet-- Draft Copy min Chart Complete MTDD
--- NOTE | 2016-07-23 17:28 | EDDOCDS ---
Nurse's Notes [facility] Name: Spring Sample Age: 36 yrs Sex: Female : 1980 Arrival Date: 07/21/2016 Time: 12:34 Bed 19 Private MD: BJ Boss Diagnosis: Hydrops of gallbladder;Colic Presentation: 07/21 12:56 Presenting complaint: Patient states: that she was supposed to have surgery to remove ms18 her gallbladder and is now c/o NVD today and was told by her doctor to come to the ER to be evaluated. Adult Sepsis Screening: The patient does not have new or worsening altered mentation. Patient's respiratory rate is less than 22. Systolic blood pressure is greater than 100. Patient has a qSOFA score of 0- Negative Sepsis Screen. Suicide/Homicide risk assessment- the patient denies having any suicidal and/or homicidal ideations and does not present with any other emotional, behavioral or mental health complaints. Status: The patient is a dependent. is retired . Transition of care: patient was not received from another setting of care. 12:56 Acuity: BULMARO Level 3 ms18 12:56 Method Of Arrival: Walkin/Carried/Asstd ms18 Triage Assessment: 13:00 General: Appears in no apparent distress, comfortable, Behavior is appropriate for age, ms18 cooperative. Pain: Location: right upper quadrant and left upper quadrant Pain currently is 9 out of 10 on a pain scale. HIV screening NA for this visit. Neurological: No deficits noted. Respiratory: No deficits noted. GI: Abdomen is non- distended Reports diarrhea, nausea, vomiting. Derm: Skin is pink, warm & dry. normal. 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 Ambien 10 mg Oral tab 1 tab once daily 2. Seroquel 200 mg oral tab 1 tab nightly 3. melatonin 10 mg Oral tab nightly 4. citalopram 40 mg Oral tab 1 tab once daily 5. hydrocodone every 6 hours as needed, not sure of the dose - PMHx: Anxiety; Depression; PTSD; - PSHx: Breast Augmentation; D & C; Tonsillectomy; - Social history: Smoking status: Patient uses tobacco products, current some day smoker. No barriers to communication noted, The patient speaks fluent Moldovan. - Family history: Not pertinent. - : The pt / caregiver states he / she is not on anticoagulants. Home medication list is obtained from the patient. - Exposure Risk Screening:: None identified. Screenin:13 Screening information is obtained from the patient. Primary language is Moldovan. Fall jam1 risk: No risks identified. Assistance ADL's: requires no assistance with activities of daily living. Abuse/DV Screen: The patient / caregiver reports he/she is: not in a situation that causes fear, pain or injury. Nutritional screening: No deficits noted. Exposure Risk Screening: None identified. Advance Directives: Currently, there is no health care proxy. There is no active DNR order. There is no living will. There is no Power of [employer]. Advance directive information has not previously been placed in an [facility] medical record. Further advance directive information is declined. home support is adequate. Assessment: 14:17 General: Appears in no apparent distress, uncomfortable, Behavior is appropriate for [facility] age, cooperative, pleasant. Pain: Location: right upper quadrant and left upper quadrant Pain currently is 9 out of 10 on a pain scale. Neurological: Level of Consciousness is awake, alert, Oriented to person, place, time. Respiratory: Airway is patent Respiratory effort is even, unlabored, Respiratory pattern is regular, symmetrical. GI: Abdomen is non- distended Bowel sounds present X 4 quads. Abd is soft and non tender X 4 quads. Reports nausea. Derm: Skin is. 14:17 Derm: Skin is pink, warm & dry. [facility] 15:15 General: Appears in no apparent distress, comfortable, Behavior is cooperative. Pain: lf1 Location: left upper quadrant and right upper quadrant Pain currently is 9 out of 10 on a pain scale. Neurological: Level of Consciousness is awake, alert, obeys commands. EENT: No deficits noted. Respiratory: Respiratory effort is even, unlabored, Breath sounds are clear bilaterally. GI: Abdomen is obese, Bowel sounds present X 4 quads. Abd is soft Abd is tender to palpation in right upper quadrant and left upper quadrant Reports upper abd pain, nausea. : No deficits noted. Derm: Skin is normal. Injury Description: No known injury. 16:00 General: Appears in no apparent distress, comfortable, Behavior is cooperative. Pain: jf3 Location: right upper quadrant, left upper quadrant and right lower quadrant Pain currently is 8 out of 10 on a pain scale. 16:00 Neurological: Level of Consciousness is awake, alert, Oriented to person, place, time. jf3 Cardiovascular: Capillary refill < 3 seconds Heart tones S1 S2 present Chest pain is denied. Respiratory: Airway is patent Respiratory effort is even, unlabored, Respiratory pattern is regular, symmetrical, Breath sounds are clear bilaterally. Denies shortness of breath at rest. GI: Abdomen is non- distended Bowel sounds present X 4 quads. Abd is soft X 4 quads Abd is tender to palpation in right upper quadrant and right lower quadrant Reports diarrhea, nausea, vomiting. Derm: Skin is pink, warm & dry. Vital Signs: 12:35 BP 148 / 88; Pulse 111; Resp 18 S; Temp 98.9(O); Pulse Ox 97% on R/A; Weight 78.93 kg dd6 (R); Height 5 ft. 5 in. (165.10 cm) (R); 15:15 BP 119 / 57; Pulse 77; Resp 16; Temp 96.7; Pulse Ox 97% ; Pain 9/10; lf1 16:00 BP 114 / 64; Pulse 75; Resp 18; Temp 97.9(O); Pulse Ox 98% on R/A; Pain 8/10; jf3 12:35 Body Mass Index 28.95 (78.93 kg, 165.10 cm) dd6 Vitals: 12:35 Log In Time: July 21, 2016 at 12:33. dd6 ED Course: 12:35 Patient visited by Vipul Hauser PCA. dd6 12:35 Karyn [facility] is Private Physician. dd6 12:35 Patient moved to Waiting dd6 12:36 Patient moved to Pre RCE dd6 12:58 Triage Initiated ms18 13:18 Bear Mahoney PA-C is PHCP. ar2 13:18 Bethany Yates MD is Attending Physician. ar2 13:28 Patient moved to Triage 1 ms18 13:31 Patient visited by Bear Mahoney PA-C. ar2 13:32 Patient moved to I5 / M5 ct3 14:07 [facility] Payment Agreement was scanned into [employer] and attached to record. jp5 14:13 Pt greeted and oriented to ED. Patient advised of names of staff involved in care, [facility] location of call griffith, wait times and NPO status. Patient has correct armband on for positive identification. Placed in gown. Bed in low position. Call light in reach. Side rails up X 1. Door closed. 14:14 Patient name changed from Spring\S\\S\Sample\S\ to Spring\S\Jazmin\S\Sample. EDMS 14:14 BMP Sent. jmk 14:14 CBC with Diff Sent. jmk 14:14 Lipase Sent. jmk 14:14 Liver Profile Sent. jmk 14:17 The patient / caregiver is instructed regarding the plan of care and ED course. [facility] 14:17 Inserted saline lock: 20 gauge in left antecubital area and blood collected. The [facility] patient tolerated the procedure well. Labs drawn. (by ED staff). Sent per order to lab. 14:19 Patient visited by Florecita Brown RN. [facility] 14:19 Gallbladder US Returned. EDMS 14:20 Patient visited by Karen Alcantar RN. [facility] 14:58 Sung Ferris DO is Hospitalizing Provider. ar2 15:14 Patient visited by Cherelle Eddy,DINESH. lf1 15:16 Patient visited by Karen Cummings PCA. jam1 15:20 Patient visited by Cherelle Eddy RN. lf1 15:36 Patient moved to [facility] 16:21 IV is intact, with fluids infusing freely, with good blood return, Flushed. No 3 procedures done that require assistance. 16:24 Patient visited by Marcos Kasper RN. jf3 07/22 06:11 T-Sheet-- Draft Copy was scanned into [employer] and attached to record. lja Administered Medications: 07/21 14:19 Drug: NS 0.9% 1000 ml [sodium chloride 0.9 % intravenous solution] Route: IV; Rate: kr3 bolus; Site: left antecubital; 16:25 Follow up: IV Status: Completed infusion; IV Intake: 1000ml jf3 14:19 Drug: Promethazine 12.5 mg [promethazine 25 mg/mL injection solution (0.5 mL)] Route: kr3 IVP; Site: left antecubital; 14:47 Follow up: Response: Nausea is resolved kr3 14:19 Drug: morphine 4 mg [morphine 4 mg/mL intravenous cartridge (1 mL)] Route: IVP; Site: kr3 left antecubital; 14:47 Follow up: Response: Pain is unchanged, physician notified kr3 15:14 Drug: Ondansetron 4 mg [ondansetron HCl 2 mg/mL intravenous solution (2 mL)] Route: lf1 IVP; Site: left antecubital; 15:15 Drug: ketorolac 30 mg [ketorolac 30 mg/mL (1 mL) injection solution (1 mL)] Route: IVP; lf1 Site: left antecubital; Point of Care Testing: Urine : 14:24 hCG Reading: Negative; jam1 Ranges: Intake: 16:25 IV: 1000.00ml; Total: 1000.00ml. jf3 Order Results: Lab Order: BMP; SPEC'M 07/21/16 14:13 Test: GLUCOSE, FASTING; Value: 91; Range: 70-105; Units: MG/DL; Status: F Test: BLOOD UREA NITROGEN; Value: 8; Range: 7-18; Units: MG/DL; Status: F Test: CREATININE FOR GFR; Value: 0.83; Range: 0.55-1.02; Units: MG/DL; Status: F Test: GLOMERULAR FILTRATION RATE; Value: > 60.0; Range: >60; Status: F Test: SODIUM LEVEL; Value: 143; Range: 136-145; Units: MEQ/L; Status: F Test: POTASSIUM SERUM; Value: 3.0; Range: 3.5-5.1; Abnormal: Below low normal; Units: MEQ/L; Status: F Test: CHLORIDE LEVEL; Value: 107; Range: 98-107; Units: MEQ/L; Status: F Test: CARBON DIOXIDE LEVEL; Value: 26; Range: 21-32; Units: MEQ/L; Status: F Test: ANION GAP; Value: 10; Range: 8-16; Units: MEQ/L; Status: F Test: CALCIUM LEVEL; Value: 8.7; Range: 8.5-10.1; Units: MG/DL; Status: F Test Note: ; Units are mL/min/1.73 m2 Chronic Kidney Disease Staging per NKF: Stage I & II GFR >=60 Normal to Mildly Decreased Stage III GFR 30-59 Moderately Decreased Stage IV GFR 15-29 Severely Decreased Stage V GFR <15 Very Little GFR Left ESRD GFR <15 on DATA PROCESSOR Lab Order: CBC with Diff; SPEC'M 07/21/16 14:13 Test: WHITE BLOOD COUNT; Value: 17.5; Range: 4.0-10.0; Abnormal: Above high normal; Units: K/mm3; Status: F Test: RED BLOOD COUNT; Value: 3.88; Range: 4.00-5.40; Abnormal: Below low normal; Units: M/mm3; Status: F Test: HEMOGLOBIN; Value: 11.5; Range: 12.0-16.0; Abnormal: Below low normal; Units: g/dl; Status: F Test: HEMATOCRIT; Value: 36.7; Range: 36.0-47.0; Units: %; Status: F Test: MEAN CORPUSCULAR VOLUME; Value: 94.5; Range: 80.0-96.0; Units: fl; Status: F Test: MEAN CORPUSCULAR HEMOGLOBIN; Value: 29.7; Range: 27.0-33.0; Units: pg; Status: F Test: MEAN CORPUSCULAR HGB CONC; Value: 31.4; Range: 32.0-36.5; Abnormal: Below low normal; Units: g/dl; Status: F Test: RED CELL DISTRIBUTION WIDTH; Value: 14.3; Range: 11.5-14.5; Units: %; Status: F Test: PLATELET COUNT, AUTOMATED; Value: 734; Range: 150-450; Abnormal: Above high normal; Units: k/mm3; Status: F Test: NEUTROPHILS %; Value: 76.7; Range: 36.0-66.0; Abnormal: Above high normal; Units: %; Status: F Test: LYMPH %; Value: 13.3; Range: 24.0-44.0; Abnormal: Below low normal; Units: %; Status: F Test: MONO %; Value: 4.8; Range: 0.0-5.0; Units: %; Status: F Test: EOS %; Value: 1.9; Range: 0.0-3.0; Units: %; Status: F Test: BASO %; Value: 1.1; Range: 0.0-1.0; Abnormal: Above high normal; Units: %; Status: F Test: LARGE UNSTAINED CELL %; Value: 2.3; Range: 0.0-4.0; Units: %; Status: F Test: NEUTROPHILS #; Value: 13.4; Range: 1.8-7.7; Abnormal: Above high normal; Units: K/mm3; Status: F Test: LYMPH #; Value: 2.7; Range: 1.5-4.5; Units: K/mm3; Status: F Test: MONO #; Value: 0.9; Range: 0.0-0.8; Abnormal: Above high normal; Units: K/mm3; Status: F Test: EOS #; Value: 0.3; Range: 0.0-0.50; Units: K/mm3; Status: F Test: BASO #; Value: 0.2; Range: 0.0-0.2; Units: K/mm3; Status: F Test: LARGE UNSTAINED CELL #; Value: 0.4; Range: 0.0-0.4; Units: K/mm3; Status: F Lab Order: Lipase; SPEC'M 07/21/16 14:13 Test: LIPASE; Value: 57; Range: 73-393; Abnormal: Below low normal; Units: U/L; Status: F Lab Order: Liver Profile; SPEC'M 07/21/16 14:13 Test: AST/SGOT; Value: 15; Range: 15-37; Units: U/L; Status: F Test: ALT/SGPT; Value: 19; Range: 12-78; Units: U/L; Status: F Test: ALKALINE PHOSPHATASE; Value: 78; Range: 45-117; Units: U/L; Status: F Test: BILIRUBIN,TOTAL; Value: 0.2; Range: 0.2-1.0; Units: MG/DL; Status: F Test: BILIRUBIN,DIRECT; Value: < 0.1; Range: 0.0-0.2; Units: MG/DL; Status: F Test: TOTAL PROTEIN; Value: 6.7; Range: 6.4-8.2; Units: GM/DL; Status: F Test: ALBUMIN; Value: 2.7; Range: 3.2-5.2; Abnormal: Below low normal; Units: GM/DL; Status: F Test: ALBUMIN/GLOBULIN RATIO; Value: 0.68; Range: 1.00-1.93; Abnormal: Below low normal; Status: F Radiology Order: Gallbladder US Test: Gallbladder US REASON FOR EXAMINATION: RUQ ;Biliary Colic/RUQ pain; Clinical: Right upper quadrant pain and biliary colic.; ; Comparison: 07/15/2016.; ; Findings:; Gallbladder is again distended and there is sonographic Cummings sign along with; minimal common bile duct dilatation to 7.5 mm. Sludge identified on prior; examination is less visible on current examination. No obvious gallstones, wall; thickening or pericholecystic fluid is appreciated.; ; Liver and pancreas are normal in contour, size, echogenicity without focal; hepatic or pancreatic lesions identified. The right kidney is normal and; measures 11.1 x 4.7 x 5.1 cm. No ascites.; ; Impression:; Hydropic appearance to the gallbladder with positive sonographic Cummings's sign; and minimal common bile duct dilatation suggest the possibility of acalculous; cholecystitis.; ; ; Signed by; Yao Ruiz MD 07/21/2016 01:50 P; Outcome: 14:18 Ultrasound Study completed. [facility] 14:59 Decision to Hospitalize by Provider. ar2 16:21 Admission hand-off: Report called to Madelyn Pineda RN on PEDs. [facility] 16:25 Discharge Assessment: patient administered narcotics - yes. Patient was admitted to the [address] or transferred to another facility. The following High Risk Discharge criteria are identified: None. Admitted to Pediatrics accompanied by tech. Condition: stable. Property :Personal belongings accompany Pt. 16:27 Patient left the ED. [facility] Signatures: Dispatcher [employer] EDMS Wilian Pace,RN RN Karen Leiva, REHABILITATION LIAISON REHABILITATION LIAISON jam1 Florecita BrownRN RN kr3 Cherelle Eddy RN RN lf1 Bear Mahoney PA-C PASeanC ar2 Vipul Hauser, REHABILITATION LIAISON REHABILITATION LIAISON dd6 Tona Strickland, REHABILITATION LIAISON REHABILITATION LIAISON ct3 Karen Alcantar,RN RN [facility] Lea Brown RN RN ms18 Cherelle Lazar Jennalee 5 Marcos Kasper RN RN jf3 Chart Complete MTDD
--- NOTE | 2016-07-23 17:28 | EDDOCDS ---
Physician Documentation [facility] Name: Spring Sample Age: 36 yrs Sex: Female : 1980 Arrival Date: 07/21/2016 Time: 12:34 Bed 19 Private MD: BJ Boss Disposition: 07/21/16 14:59 Hospitalization ordered by Sung Ferris for Inpatient Admission. Preliminary diagnosis are Hydrops of gallbladder, Colic. - Bed requested for M PED. - Status is Inpatient Admission. jf3 - Condition is Stable. - Problem is new. - Symptoms are unchanged. Historical: - Allergies: no known allergies; - Home Meds: 1. Ambien 10 mg Oral tab 1 tab once daily 2. Seroquel 200 mg oral tab 1 tab nightly 3. melatonin 10 mg Oral tab nightly 4. citalopram 40 mg Oral tab 1 tab once daily 5. hydrocodone every 6 hours as needed, not sure of the dose - PMHx: Anxiety; Depression; PTSD; - PSHx: Breast Augmentation; D & C; Tonsillectomy; - Social history: Smoking status: Patient uses tobacco products, current some day smoker. No barriers to communication noted, The patient speaks fluent [place]. - Family history: Not pertinent. - : The pt / caregiver states he / she is not on anticoagulants. Home medication list is obtained from the patient. - Exposure Risk Screening:: None identified. MATERIALS RECYCLER: 07/21 13:00 LMP 07/10/2016 [id number] Vital Signs: 12:35 BP 148 / 88; Pulse 111; Resp 18 S; Temp 98.9(O); Pulse Ox 97% on R/A; Weight 78.93 kg / dd6 174.01 lbs (R); Height 5 ft. 5 in. (165.10 cm) (R); 15:15 BP 119 / 57; Pulse 77; Resp 16; Temp 96.7; Pulse Ox 97% ; Pain 9/10; lf1 16:00 BP 114 / 64; Pulse 75; Resp 18; Temp 97.9(O); Pulse Ox 98% on R/A; Pain 8/10; jf3 12:35 Body Mass Index 28.95 (78.93 kg, 165.10 cm) dd6 MDM: 12:42 If pre-RCE wait time >60 minutes, inform reg. staff to do full reg ordered. ar2 12:42 If pt is female >10yo <50yo order UCG ordered. ar2 12:42 Undress patient appropriately for examination ordered. ar2 12:42 Gallbladder US Ordered. EDMS 12:43 BMP Ordered. EDMS 12:43 CBC with Diff Ordered. EDMS 12:43 Lipase Ordered. EDMS 12:44 Liver Profile Ordered. EDMS 13:31 IV Saline Lock ordered. ar2 13:51 NS 0.9% 1000 ml IV at bolus once ordered. ar2 13:51 Promethazine 12.5 mg IVP once; dilute and administer 30-60 minutes ordered. ar2 13:51 morphine 4 mg IVP once ordered. ar2 14:07 [facility] Payment Agreement was scanned into [employer] and attached to record. jp5 14:07 Financial registration complete. jp5 14:19 UCG by Nursing ordered. [facility] 14:43 CBC with Diff Reviewed. ar2 14:43 Gallbladder US Reviewed. ar2 14:53 BMP Reviewed. ar2 14:53 Lipase Reviewed. ar2 14:53 Liver Profile Reviewed. ar2 14:57 ketorolac 30 mg IVP once ordered. ar2 14:57 Ondansetron 4 mg IVP once ordered. ar2 14:58 BED REQUEST+ADM ordered. EDMS 15:17 Admission / Observation Status ordered. EDMS 15:17 REGULAR DIET ordered. EDMS 15:17 NPO DIET ordered. EDMS 07/22 06:11 T-Sheet-- Draft Copy was scanned into [employer] and attached to record. [facility] Point of Care Testing: Urine : 07/21 14:24 hCG Reading: Negative; jam1 Ranges: Administered Medications: 14:19 Drug: NS 0.9% 1000 ml [sodium chloride 0.9 % intravenous solution] Route: IV; Rate: kr3 bolus; Site: left antecubital; 16:25 Follow up: IV Status: Completed infusion; IV Intake: 1000ml jf3 14:19 Drug: Promethazine 12.5 mg [promethazine 25 mg/mL injection solution (0.5 mL)] Route: kr3 IVP; Site: left antecubital; 14:47 Follow up: Response: Nausea is resolved kr3 14:19 Drug: morphine 4 mg [morphine 4 mg/mL intravenous cartridge (1 mL)] Route: IVP; Site: kr3 left antecubital; 14:47 Follow up: Response: Pain is unchanged, physician notified kr3 15:14 Drug: Ondansetron 4 mg [ondansetron HCl 2 mg/mL intravenous solution (2 mL)] Route: lf1 IVP; Site: left antecubital; 15:15 Drug: ketorolac 30 mg [ketorolac 30 mg/mL (1 mL) injection solution (1 mL)] Route: IVP; lf1 Site: left antecubital; Signatures: Dispatcher [employer] EDMS Bear Mahoney PA-C PA-C ar2 Karen lAcantarRN RN Lea Herzog RN RN ms18 Manjitl, Irina Orr jp5 Marcos Kasper,RN RN jf3 Cherelle Jacobson RN RN lmg Florecita Brown RN kr3 Cherelle Eddy RN lf1 The chart was reviewed and I authenticate all verbal orders and agree with the evaluation and treatment provided.Attachments: 14:07 [facility] Payment Agreement jp5 07/22 06:11 T-Sheet-- Draft Copy min Chart Complete MTDD
== END 2016-07-23 09:30 | disposition home or self-care (01) | DRG 419 ==
LOC: M ED 12:34 → M ED INP 15:06 → M PED 16:35
PROVIDERS: ADMIT Surgery; ATTEND Surgery
PROC: 0FT44ZZ Resection of Gallbladder, Percutaneous Endoscopic Approach (ICD-10-PCS; principal; 2016-07-22 11:00)
DX: K81.0 Acute cholecystitis (principal); Z79.899 Other long term (current) drug therapy; F17.200 Nicotine dependence, unspecified, uncomplicated

== ENCOUNTER 2016-07-27 04:20 | Observation (INO) | payer OTHER ==
[~2016-07-27] VITALS: Ht 165.1 cm; Wt 78.9 kg
[~2016-07-27 04:20] MED LIST changes: +CIPR500T3 PO; +HYDR1TAB97 PO; +SENN1TAB2 PO
[2016-07-27] MEDS ORDERED: ONDANSETRON 4MG/2ML VIAL (J2405) As Ordered ONE (06:34)
[2016-07-27] MEDS ORDERED: HYDROmorphone HCL 1 MG/ML SYRINGE (J1170) As Ordered ONE ×3 (06:34→12:09)
[2016-07-27 07:10] LABS: BASO # 0.1 K/mm3 (0.0-0.2); BASO % 0.5 % (0.0-1.0); EOS # 0.3 K/mm3 (0.0-0.50); EOS % 2.2 % (0.0-3.0); LARGE UNSTAINED CELL # 0.3 K/mm3 (0.0-0.4); LARGE UNSTAINED CELL % 2.7 % (0.0-4.0); LYMPH # 2.9 K/mm3 (1.5-4.5); LYMPH % 22.8 % (24.0-44.0); MEAN CORPUSCULAR HEMOGLOBIN 30.1 pg (27.0-33.0); MEAN CORPUSCULAR VOLUME 94.2 fl (80.0-96.0); MONO # 0.7 K/mm3 (0.0-0.8); MONO % 5.9 % (0.0-5.0); NEUTROPHILS # 8.3 K/mm3 (1.8-7.7); NEUTROPHILS % 65.9 % (36.0-66.0); PLATELET COUNT, AUTOMATED 800 k/mm3 (150-450); RED CELL DISTRIBUTION WIDTH 13.8 % (11.5-14.5); WHITE BLOOD COUNT 12.6 K/mm3 (4.0-10.0)
[2016-07-27 07:16] LABS: CONTROL LINE HCG INT CTR LINE PRESENT
[2016-07-27 07:28] LABS: ALBUMIN 2.7 GM/DL (3.2-5.2); ALBUMIN/GLOBULIN RATIO 0.73 (1.00-1.93); ALKALINE PHOSPHATASE 69 U/L (45-117); ALT/SGPT 17 U/L (12-78); AMYLASE 30 U/L (25-115); ANION GAP 10 MEQ/L (8-16); AST/SGOT 13 U/L (15-37); BILIRUBIN,DIRECT < 0.1 MG/DL (0.0-0.2); BILIRUBIN,TOTAL 0.2 MG/DL (0.2-1.0); BLOOD UREA NITROGEN 10 MG/DL (7-18); CALCIUM LEVEL 8.8 MG/DL (8.5-10.1); CARBON DIOXIDE LEVEL 22 MEQ/L (21-32); CHLORIDE LEVEL 111 MEQ/L (98-107); CREATININE FOR GFR 0.74 MG/DL (0.55-1.02); GLOMERULAR FILTRATION RATE > 60.0 (>60); GLUCOSE, FASTING 87 MG/DL (70-105); POTASSIUM SERUM 3.6 MEQ/L (3.5-5.1); SODIUM LEVEL 143 MEQ/L (136-145); TOTAL PROTEIN 6.4 GM/DL (6.4-8.2)
[2016-07-27] MEDS ORDERED: ISOVUE-370 76% 100ML VIAL (Q9967) As Ordered ONE (08:23)
[2016-07-27] MEDS: CitaloPRAM (CeleXA) 20 MG TAB PO SCH (09:00)
--- NOTE | 2016-07-27 09:47 | REP ---
CT scan of the abdomen and pelvis with IV but without oral contrast: History: Postoperative abdominal pain. Comparison CT study is from July 15, 2016. The patient has undergone cholecystectomy in the interval. CT contrast dose: 100 mL of Isovue [address] findings: Digital preliminary pusher operator radiograph demonstrates clips in the right upper quadrant of the abdomen and tubal ligation bands in the pelvis. There are one or two loops of air-filled borderline caliber small bowel in the left mid abdomen. The lung bases are clear. Bilateral breast augmentation implants are seen in place. The liver and the spleen remain normal in size and homogeneous in texture. No adrenal lesion is seen. There is some postoperative edema or fluid in the gallbladder fossa but no abscess or defined fluid collection is seen. A normal appendix is seen in the pelvis. There is no evidence of free intraperitoneal air. No uterine or ovarian abnormality is seen. Small and large intestinal bowel loops are unremarkable on axial CT images. There is some small and large bowel gas. The kidneys enhance symmetrically and are morphologically intact. No bladder abnormalities are seen. No bony abnormality is noted. No abdominal wall defect or abdominal wall hematoma is seen. There are some mild postoperative changes in the anterior abdominal wall suggesting a recent laparoscopic procedure. Impression: No complication identified. Minimal fluid adjacent to the clips in the gallbladder post cholecystectomy. No abscess, biloma, free air or evidence of significant ileus or obstruction seen. Signed by Jose Onofre MD 07/27/2016 10:23 A
[2016-07-27] MEDS ORDERED: PERCOCET 5MG/325MG TAB As Ordered ONE (12:51)
[2016-07-27] MEDS ORDERED: ONDANSETRON 4 MG ORAL DISINTEGRATING TAB (S0181) As Ordered ONE (13:33)
--- NOTE | 2016-07-27 14:56 | REP ---
MRI thoracic spine without contrast: History: Chronic interscapular pain extending down the back. No recent injury. Five days post cholecystectomy. Technique: Sagittal and axial T1 and T2-weighted scans are acquired in the usual fashion with and without fat saturation. Sequences include spin echo, turbo spin-echo, and STIR imaging sequences. MRI findings: Cortical and medullary bone signal intensity are normal. Alignment is normal. Disc spaces are maintained. Thoracic cord is normal in coarse, caliber and signal intensity on T1 and T2-weighted scans. No extraspinal abnormality is seen. No neural foraminal lesion is appreciated. There is a small focal disc protrusion at the T8-9 disc margin centrally effacing the ventral subarachnoid space but not contacting or compressing the thoracic cord. No other thoracic disc protrusion is seen. No cord lesion is seen. No other cord compression is seen. Exam is otherwise unremarkable. Impression: Small central disc protrusion at T8-9 effacing the ventral subarachnoid space but not contacting or compressing the thoracic cord. Otherwise negative. Signed by Jose Onofre MD 07/27/2016 03:39 P
[2016-07-27] MEDS ORDERED: ONDANSETRON 4 MG TAB (S0181) PO PRN (15:30)
--- NOTE | 2016-07-27 15:52 | HPEPDOC ---
Medical History and Physical Date of Admission Jul 27, 2016 at 15:22 History and Physical HISTORY AND PHYSICAL Date of admission: 07/27/2016 PCP: Karyn Liang Chief complaint: Back pain HPI: 36-year-old female with anxiety, depression, PTSD, recent cholecystectomy who presented with intractable back and abdominal pain that has worsened since her abdominal surgery. She states that this pain began at least 6 months ago and initially started in her back between her shoulder blades. She is 5 months , and she states that the pain got worse after the baby was born. In approximately the last month, she has begun to have some numbness and tingling in both legs. She also states that the pain moved around to her abdomen in the last 3-4 weeks. Given the abdominal pain and a persistently unrevealing workup, she underwent an elective cholecystectomy 5 days prior to admission for thoughts that potentially this was her gallbladder. She states that since the surgery, her pain has been getting worse not better. She says it's located in the back between her shoulder blades and then continues on down the rest of her back into her legs. It is a constant pain that she describes as throbbing, and that goes through her and makes her feel as if she has no insides. In her legs, she states that it feels like pins and needles. She states that nothing makes it better, but has noted that lifting things makes it worse. Currently, she states that her pain is an 8 out of 10, but that usually it is a 10 out of 10. She had been in the emergency room for approximately 13 hours by the time I was called for admission, and had received 1.5mg of IV dilaudid, as well as PO percocet. Earlier this morning, the surgeon hooker on evaluated her and felt that this was not related to her recent surgery but was concerned that she might have a herniated disc. At that time, an MRI was completed, which did indeed show mild disc herniation at T8-9. The ER had recommended that she be discharged , and had tried multiple times to discharge her, but the patient refused to go home stating that she was too anxious that the pain would get out of control if she was home. We were called for admission secondary to her refusal to go home, citing intractable pain. Of note, the patient states that she is not breast-feeding. Past medical history: Anxiety, depression, PTSD Past surgical history: Cholecystectomy 5 days prior to admission, breast augmentation, D&C, tonsillectomy, eyelid surgery Family history: Patient denies any health problems in her family. Social history: No drug or alcohol use. She does smoke cigarettes daily Allergies: No known drug allergies Review of systems: General: Positive for chills. Negative for fever. Eyes: Negative for vision changes and ocular discharge. ENT: Negative for sore throat and nose bleed. Cardiovascular: Negative for chest pain and palpitations. Respiratory: Positive for cough and shortness of breath. GI: Positive for nausea and diarrhea. Musculoskeletal: Positive for back pain. Skin: Negative for rash. Neuro: Positive for headache, numbness, tingling. Negative for dizziness. Psych: Positive for anxiety. Negative for depression and suicidal ideation. Endocrine: Negative for polyuria. : Negative for dysuria. Heme: Negative for bleeding. Positive for bruising around her recent incision sites. Home meds: See below Physical exam: Vital signs: Blood pressure 117/64, HR 73, temperature 98.0, O2 sat 98% on room air, RR 18 Gen.: awake, alert, no acute distress Eyes: Extraocular movements intact, normal sclera ENT: Moist mucous membranes Cardiovascular: RRR, no murmurs rubs or gallops Lungs: clear to auscultation bilaterally, no rales, rhonchi, or wheeze Abdomen: Soft, normal BS, mild diffuse TTP, incisions are healing well, mild superificial bruising around incisions Extremities: No peripheral edema Neuro: alert and oriented 3, normal speech, no focal deficits, equal strength in BLE Psych: very tearful and anxious; denies SI and depression Labs and radiology: See below White count 12.6 Platelets 800 UA, CT of the abdomen and pelvis, amylase and lipase, CMP are all unremarkable Blood cultures and urine cultures pending MRI of the thoracic spine shows small central disc protrusion at T8-9 effacing the subarachnoid space but not contacting her compressing the cord Assessment and plan: 36-year-old female with anxiety, depression, PTSD, recent cholecystectomy who presented with intractable back and abdominal pain that has worsened since her abdominal surgery. She has been placed in observation status for intractable back pain secondary to herniated disc. 1. Intractable back pain: This appears most likely to be secondary to a herniated disc in the thoracic spine. CT of the abdomen and pelvis is unremarkable, and an evaluation by the surgeon hooker on reveals that she is not having any complications from her recent cholecystectomy. At this time, we will start her on scheduled ibuprofen, Flexeril, Neurontin, and OxyContin 10 mg by mouth twice a day. She will also have Percocet and morphine for breakthrough pain. At home, she has been taking Percocets almost around the clock for several weeks. We will also use a heating pad. When pain management services are available on Thursday, I recommend that we consult them, unless the interventions we are starting at this time seemed to have controlled her pain. We will also ask PT to evaluate her and help with mobility. She'll be started on scheduled Colace given the opioids that she'll be on. 2. Chronic depression, anxiety, PTSD: The patient is very tearful throughout the interview. She is extremely upset, saying that she feels like people at the hospital do not believe her about the pain and that several of the nurses have been rude to her. While she does admit that she is having some anxiety, she vehemently denies any depression or suicidal ideation. She states that in the past, her depression has taken her to very dark places but this is not the case right now. She states that she has not been having any difficulty with her mood after her baby has been born, and in fact has been enjoying having the new baby. She feels like all the anxiety is related to her concerns that if she leaves the hospital, she will not be able to control her pain. At this time, we' ll continue her home Celexa and home Seroquel. We will attempt to treat her pain and we'll then reevaluate her mental status. If she continues to be extremely tearful and have a lot of anxiety, she may benefit from an inpatient psychiatric consult. 3. Thrombocytosis and leukocytosis: The patient's white count is 12.6, and her platelets are 800. She is afebrile. I suspect that these are reactive processes from her recent cholecystectomy. Upon review of the EMR, she was noted to have some slight elevations in these during her recent surgery stay as well. We will continue to trend these and monitor the patient closely. DVT prophylaxis: SCDs Dispo: in place in observation status on the service of Dr. Mosley CODE STATUS: Full Code Vital Signs see above Laboratory Data Labs 24H Laboratory Tests 2 07/27/16 06:30: Aspartate Amino Transf (AST/SGOT) 13L, Alanine Aminotransferase (ALT/SGPT) 17, Alkaline Phosphatase 69, Total Bilirubin 0.2, Direct Bilirubin < 0.1, Albumin 2.7L, Albumin/Globulin Ratio 0.73L, Amylase Level 30, Anion Gap 10, White Blood Count 12.6H, Red Blood Count 3.65L, Hemoglobin 11.0L, Hematocrit 34.4L, Mean Corpuscular Volume 94.2, Mean Corpuscular Hemoglobin 30.1, Mean Corpuscular Hemoglobin Concent 32.0, Red Cell Distribution Width 13.8, Platelet Count 800H, Neutrophils (%) (Auto) 65.9, Lymphocytes (%) (Auto) 22.8L, Monocytes (%) (Auto) 5.9H, Eosinophils (%) (Auto) 2.2, Basophils (%) (Auto) 0.5, Neutrophils # (Auto ) 8.3H, Lymphocytes # (Auto) 2.9, Monocytes # (Auto) 0.7, Eosinophils # (Auto) 0.3, Basophils # (Auto) 0.1, Calcium Level 8.8, Glomerular Filtration Rate > 60.0, Human Chorionic Gonadotropin, Qual NEGATIVE, Large Unclassified Cells # 0.3, Large Unclassified Cells % 2.7, Lipase 90, Total Protein 6.4 07/27/16 06:31: Urine Amorphous Sediment , Urine Appearance CLEAR, Urine Color YELLOW, Urine pH 7.0, Urine Specific [place] 1.012, Urine Protein NEGATIVE, Urine Glucose (UA) NEGATIVE, Urine Ketones NEGATIVE, Urine Urobilinogen 0.2, Urine Bilirubin NEGATIVE, Urine Leukocyte Esterase NEGATIVE, Urine Bacteria (Auto) NEGATIVE, Urine Blood NEGATIVE, Urine Calcium Carbonate Cryst(Auto) , Urine Calcium Oxalate Cryst (Auto) , Urine Calcium Phosphate Cherie (Auto) , Urine Cellular Casts , Urine Cystine Crystals , Urine Granular Casts (Auto) , Urine Hyaline Casts (Auto) 0, Urine Leucine Crystals , Urine Mucus (Auto) SMALL, Urine Nitrite NEGATIVE, Urine Oval Fat Bodies (Auto) , Urine RBC (Auto) 2, Urine Renal Epithelial Cells , Urine Sperm (Auto) , Urine Squamous Epithelial Cells 1 , Urine Transitional Epithelial Cells , Urine Trichomonas (Auto) , Urine Triple Phosphate Cryst (Auto) , Urine Tyrosine Crystals , Urine Uric Acid Crystals ( Auto) , Urine WBC (Auto) 2, Urine Waxy Casts (Auto) , Urine Yeast-Like Cells ( Auto) CBC/BMP Laboratory Tests 07/27/16 06:30 Red Blood Count 3.65 L, Mean Corpuscular Volume 94.2, Mean Corpuscular Hemoglobin 30.1, Mean Corpuscular Hemoglobin Concent 32.0, Red Cell Distribution Width 13.8, Neutrophils (%) (Auto) 65.9, Lymphocytes (%) (Auto) 22.8 L, Monocytes (%) (Auto) 5.9 H, Eosinophils (%) (Auto) 2.2, Basophils (%) ( Auto) 0.5, Neutrophils # (Auto) 8.3 H, Lymphocytes # (Auto) 2.9, Monocytes # ( Auto) 0.7, Eosinophils # (Auto) 0.3, Basophils # (Auto) 0.1 Microbiology Microbiology 07/27/16 Blood Culture, Received Pending 07/27/16 Blood Culture, Received Pending 07/27/16 Urine Culture, Received Pending Home Medications Scheduled (Senna Plus 8.6-50 mg) 1 Tab Tab 1 TAB PO BID Citalopram Hydrobromide (Citalopram Hydrobromide) 20 Mg Tab 40 MG PO DAILY Gabapentin (Gabapentin) 300 Mg Cap 300 MG PO QPM Melatonin (Melatonin) 3 Mg Tab 3 MG PO QHS Quetiapine Fumerate (Seroquel) 200 Mg Tab 200 MG PO QHS Zolpidem Tartrate (Ambien) 10 Mg Tab 10 MG PO QHS Scheduled PRN Ondansetron (Zofran Odt) 4 Mg Tab 4 MG PO PRN PRN PRN NAUSEA OR VOMITING Allergies Coded Allergies: No Known Drug Allergy (Verified Allergy, Unknown, 05/15/14) CHANNING JACOME Jul 27, 2016 15:52
[2016-07-27] MEDS ORDERED: MORPHINE 4 MG/ML 1ML SYRINGE As Ordered ONE (16:04)
[2016-07-27 17:30] VITALS: BP 165/83
--- NOTE | 2016-07-27 17:45 | CR ---
DATE OF CONSULTATION: 07/27/2016 REASON FOR CONSULTATION: Status post laparoscopic cholecystectomy with back pain and right upper quadrant pain and abdominal pain. HISTORY OF PRESENT ILLNESS: The patient is a 36-year-old female who was seen for severe back pain with some right subcostal pain, epigastric pain as well. Essentially had an extensive workup done and during the workup, had an elevated white count but did not have any inflammatory changes around the gallbladder itself, although there was a slightly thickened gallbladder wall. Tenderness is what they "called it or a Cummings sign" and thus she was taken to the operating room for a laparoscopic cholecystectomy. The patient postoperatively has still complained of this right-sided pain but also this epigastric pain and back pain that had been persistent since prior to admission and it continued postoperatively. She continues with that pain today, does not complain of any gastrointestinal (GI) distress, does not complain of any difference when she eats, when she has bowel movements, activity iraheta, etc. When she discusses what hurts the most, she states between her two shoulder blades all across her midthoracic area, radiating down her spine, and some of it also radiates to the right subcostal area. PAST MEDICAL HISTORY: Her past medical history is significant for history of anxiety, history of depression, history of posttraumatic stress disorder (PTSD), history of eyelid surgery, history of tonsillectomy, history of breast augmentation, history of dilation and curettage (D and C). MEDICATIONS: Medications include Ambien, citalopram, Seroquel and melatonin. PHYSICAL EXAMINATION: GENERAL: Reveals a tearful 36-year-old who looks older than stated age. HEENT: Is unremarkable. LUNGS: Are clear anteriorly. HEART: Regular. ABDOMEN: Soft throughout. Mild tenderness where her incisions are but she has some ecchymosis across her incisions but not severe. No evidence of cellulitis. No evidence of significant other abnormalities. LABORATORIES AND DIAGNOSTICS: She underwent a CT scan here in the emergency room. I viewed this and does reveal some minimal fluid status post laparoscopic cholecystectomy which was less than a week ago which is consistent with the study. No evidence of abscess. No myeloma. Her liver function tests are normal. However, white count is slightly elevated at 12.6. She has some point tenderness all across her midthoracic area and mostly in the perivertebral area, and some discomfort and pain along the ribs laterally. IMPRESSION AND PLAN: The patient has probable musculoskeletal issues; i.e., even a herniated disc or zoster without the blisters is another positive possibility, i.e., similar to postherpetic neuralgia. Her pain is out of proportion to her physical findings and I am not sure what the etiology is for this. At this point I am not seeing a surgical indication for operative treatment. I am not seeing any indications to aspirate the minimal fluid/normal-appearing fluid around the postoperative gallbladder fossa. Thus at this point, my recommendation is for adequate pain control. It is reasonable to have her see pain clinic. She had an appointment set up with them prior to this recent admission, and I would recommend having that followup appointment with the pain clinic. Having an MRI of her thoracic spine is also a reasonable option here in the emergency room. I will defer this additional workup to the physicians here in the emergency room. Otherwise, I would recommend the routine postoperative followup with Dr. Ferris as previously scheduled.
[2016-07-27] MEDS ORDERED: MORPHINE 2 MG/ML 1ML SYRINGE As Ordered ONE (18:41)
[2016-07-27] MEDS: MORPHINE 2 MG/ML 1ML SYRINGE IV PRN ×3 (18:44→23:17)
[2016-07-27] MEDS ORDERED: ONDANSETRON 4 MG TAB (S0181) As Ordered ONE (18:48)
--- NOTE | 2016-07-27 19:46 | EDDOCDS ---
Physician Documentation [facility] Name: Spring Sample Age: 36 yrs Sex: Female : 1980 Arrival Date: 07/27/2016 Time: 04:20 Bed I8 / 16 Private MD: Karyn JD [facility] Disposition: 07/27/16 14:14 Hospitalization ordered by Maru Pizarro for Inpatient Admission. Preliminary diagnosis are Low back pain - small thoracic herniated disk, mood disturbance, Acute pain, not elsewhere classified - intractable back pain. - Bed requested for M PED. - Status is Inpatient Admission. mlc - Condition is Stable. - Problem is new. - Symptoms are unchanged. - Notes: follow up with ortho as discussed. Dr Jacobson and I feel your abdominal pain is referred pain from herniated disc Historical: - Allergies: No known drug Allergies; - Home Meds: 1. Ambien 10 mg Oral tab 1 tab once daily 2. melatonin 10 mg Oral tab nightly 3. Seroquel 200 mg Oral tab 1 tab nightly 4. [place] 5-325 mg Oral tab 2 tabs every 4 hours (Last dose: 07/26/2016) 5. citalopram 40 mg Oral tab 1 tab once daily 6. Senna Plus 8.6-50 mg oral tab 1 tabs twice a day - PMHx: Anxiety; Depression; PTSD; - PSHx: D & C; Tonsillectomy; Breast Augmentation; Cholecystectomy; under eyelid; - Social history: Smoking status: Patient states former smoker of tobacco. No barriers to communication noted, The patient speaks fluent Bulgarian. - Family history: Not pertinent. - : The pt / caregiver states he / she is not on anticoagulants. Home medication list is obtained from the patient. - Exposure Risk Screening:: None identified. 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 [place] [facility] Vital Signs: 04:24 BP 132 / 68 (auto/); pml 04:27 BP 132 / 68 RA Sitting (auto/); Pulse 81 MON; Resp 20 S; Temp 98.0(O); Pulse Ox 98% on cln R/A; Weight 78.93 kg / 174.01 lbs (R); Height 5 ft. 5 in. (165.10 cm) (R); Pain 10/; 04:28 Pulse 82 MON; Pulse Ox 98% ; pml 06:56 BP 109 / 55 (auto/); mlc 06:58 Pulse 72 MON; Pulse Ox 97% ; mlc 07:16 Pulse 74 MON; Pulse Ox 93% ; pml 07:16 BP 118 / 59 (auto/); pml 07:36 Pulse 74 MON; Pulse Ox 96% ; pml 07:36 BP 103 / 55 (auto/); pml 07:56 Pulse 76 MON; Pulse Ox 97% ; pml 07:56 BP 107 / 55 (auto/); pml 08:16 Pulse 78 MON; Pulse Ox 97% ; pml 08:16 BP 108 / 55 (auto/); pml 10:58 BP 117 / 64; Pulse 73; Resp 18; Pulse Ox 98% on R/A; Pain 9/10; pml 11:15 Pain 9/10; pml 04:27 Body Mass Index 28.95 (78.93 kg, 165.10 cm) cln MDM: 05:58 NS 0.9% 1000 ml IV at bolus once ordered. mm11 05:58 Ondansetron 4 mg IVP once ordered. mm11 05:58 -Blood Culture (Adults Only), peripheral from different site, or from device/port/PICC mm11 etc. if present ordered. 05:58 IV Saline Lock ordered. mm11 05:58 Undress patient appropriately for examination ordered. mm11 05:58 Dilaudid - HYDROmorphone 0.5 mg IVP every 30 minutes x3 ordered. mm11 05:59 NOTHING BY MOUTH+DIET ordered. EDMS 05:59 Amylase Ordered. EDMS 05:59 Basic Metabolic Profile Ordered. EDMS 05:59 CBC with Diff Ordered. EDMS 05:59 HCG,Serum Qualitative Ordered. EDMS 05:59 Lipase Ordered. EDMS 05:59 Liver Profile Ordered. EDMS 05:59 Urinalysis Ordered. EDMS 05:59 -Blood Culture Ordered. EDMS 05:59 Urine Culture Ordered. EDMS 06:07 -Blood Culture (Adults Only), peripheral from different site, or from device/port/PICC ml3 etc. if present complete. 06:08 BLOOD CULTURES Ordered. EDMS 07:53 Financial registration complete. lg 07:55 Basic Metabolic Profile Reviewed. mm11 07:55 CBC with Diff Reviewed. mm11 07:55 Liver Profile Reviewed. mm11 07:55 Amylase Reviewed. mm11 07:55 HCG,Serum Qualitative Reviewed. mm11 07:55 Lipase Reviewed. mm11 07:55 Urinalysis Reviewed. mm11 08:15 CT ABD & PELVIS: IV Contrast Only Ordered. EDMS 09:01 Consult PFS/PSA/Medicare Nurse ordered. ml 09:02 BED REQUEST+ADM ordered. EDMS 09:28 PSA Outpatient Referrals was scanned into [facility] and attached to record. dsf 09:30 Consult PFS/PSA/Medicare Nurse complete. rb 10:12 MRI Screening Tool - Place on chart, inform RN ordered. ml 10:13 -MRI-Spine,Thoracic without contrast Ordered. EDMS 10:16 MRI Screening Tool - Place on chart, inform RN complete. kpj 12:50 oxyCODONE-acetaminophen 5 mg-325 mg 2 tabs PO once ordered. ml 12:58 oxyCODONE-acetaminophen 5 mg-325 mg 2 tabs PO once ordered. pml 13:36 Ondansetron ODT Oral Disintegrating Tablet 4 mg PO once ordered. pml 13:57 BED REQUEST+ADM ordered. EDMS 13:58 REGULAR+DIET ordered. EDMS 14:14 ED course: pt refused to be discharged. i had discussed the diagnosis/plan/pain ml medication. she is refusing. dw dr carlisle - to admit. i strongly feel there is an element of diepression. both she and her interviewed - denies suicidal ideation/homicidal ideation. admits depression and poor coping skills. dr carlisle aware and will consult psych.mlg. 15:17 morphine 4 mg IVP once ordered. ml 15:29 Admission / Observation Status ordered. EDMS 15:29 REGULAR DIET ordered. EDMS 15:30 PHYSICAL THERAPY EVAL & TREAT ordered. EDMS 19:32 CBC WITH DIFFERENTIAL Ordered. EDMS 19:32 BASIC METABOLIC PROFILE Ordered. EDMS 19:32 MAGNESIUM LEVEL Ordered. EDMS Administered Medications: 06:58 Drug: NS 0.9% 1000 ml [sodium chloride 0.9 % intravenous solution] Route: IV; Rate: mlc bolus; Site: left wrist; 06:58 Drug: Ondansetron 4 mg [ondansetron HCl 2 mg/mL intravenous solution (2 mL)] Route: mlc IVP; Site: left wrist; 06:58 Drug: Dilaudid - HYDROmorphone 0.5 mg [hydromorphone 1 mg/mL injection syringe (0.5 mlc mL)] Route: IVP; Site: left wrist; 11:00 Drug: Dilaudid - HYDROmorphone 0.5 mg [hydromorphone 1 mg/mL injection syringe (0.5 pml mL)] Route: IVP; Site: left hand; 11:15 Follow up: Pain 9/10 Adult; Response: No significant change. pml 12:12 Drug: Dilaudid - HYDROmorphone 0.5 mg [hydromorphone 1 mg/mL injection syringe (0.5 pml mL)] Route: IVP; Site: left hand; 12:58 Drug: oxyCODONE-acetaminophen 2 tabs [oxycodone-acetaminophen 5 mg-325 mg tablet (2 pml tabs)] Route: PO; 13:36 Drug: Ondansetron ODT 4 mg [ondansetron 4 mg disintegrating tablet (1 tabs)] Route: PO; pml 16:15 Drug: morphine 4 mg [morphine 4 mg/mL intravenous cartridge (1 mL)] Route: IVP; Site: [facility] right antecubital; Signatures: Dispatcher [employer] EDMS Melina Gonzalez MD MD Graciela Aguilar RN RN [facility] Linder, Carolina, PSA PSA rb Eder Jaffe, Reg Reg lg Bridget, Janak, [employer] ml3 Sumeet Chew, DO DO mm11 Debi Vigil RN RN dsf Quay, Paulina, RN RN pml Alejandra Gross RN RN mlc Sourwine, Sharon, RN RN [facility] MTDD
--- NOTE | 2016-07-27 19:48 | EDDOCDS ---
Nurse's Notes [facility] Name: Spring Sample Age: 36 yrs Sex: Female : 1980 Arrival Date: 07/27/2016 Time: 04:20 Bed I8 / 16 Private MD: BJ Boss Diagnosis: Low back pain-small thoracic herniated disk; mood disturbance;Acute pain, not elsewhere classified-intractable back pain Presentation: 07/27 04:22 Presenting complaint: EMS states: Gallbladder removed on the 22 of July. pt reports mlc pain since then without relief. pain has gotten intolerable. pt reports she ran out of her prescribed norco tabs on the . Risk factors: the patient reports no vaginal bleeding. Adult Sepsis Screening: The patient does not have new or worsening altered mentation. Patient's respiratory rate is less than 22. Systolic blood pressure is greater than 100. Patient has a qSOFA score of 0- Negative Sepsis Screen. Suicide/Homicide risk assessment- the patient denies having any suicidal and/or homicidal ideations and does not present with any other emotional, behavioral or mental health complaints. Status: The patient is a dependent. Transition of care: patient was not received from another setting of care. 04:22 Acuity: BULMARO Level 3 mlc 04:22 Method Of Arrival: Ambulance mlc Triage Assessment: 04:30 General: Appears uncomfortable, Behavior is cooperative, crying. Pain: Location: back mlc and epigastric area Pain currently is 10 out of 10 on a pain scale. HIV screening NA for this visit Offered previously. The patient is triaged at the bedside. See Assessment in Nurses Notes section of ED record. Neurological: Level of Consciousness is awake, alert, Oriented to person, place, time. Respiratory: Airway is patent Respiratory effort is even, unlabored, Respiratory pattern is regular. GI: Abdomen is non- distended Reports diarrhea, nausea, vomiting. Derm: Skin is normal. 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 Ambien 10 mg Oral tab 1 tab once daily 2. melatonin 10 mg Oral tab nightly 3. Seroquel 200 mg Oral tab 1 tab nightly 4. [place] 5-325 mg Oral tab 2 tabs every 4 hours (Last dose: 07/26/2016) 5. citalopram 40 mg Oral tab 1 tab once daily 6. Senna Plus 8.6-50 mg oral tab 1 tabs twice a day - PMHx: Anxiety; Depression; PTSD; - PSHx: D & C; Tonsillectomy; Breast Augmentation; Cholecystectomy; under eyelid; - Social history: Smoking status: Patient states former smoker of tobacco. No barriers to communication noted, The patient speaks fluent Tuvaluan. - Family history: Not pertinent. - : The pt / caregiver states he / she is not on anticoagulants. Home medication list is obtained from the patient. - Exposure Risk Screening:: None identified. Screenin:35 Screening information is obtained from the patient. Fall risk: No risks identified. mlc Assistance ADL's: requires no assistance with activities of daily living. Abuse/DV Screen: The patient / caregiver reports he/she is: not in a situation that causes fear, pain or injury. Nutritional screening: No deficits noted. Advance Directives: Currently, there is no health care proxy. There is no Power of Analysis Tester. home support is adequate. Assessment: 04:35 General: Appears uncomfortable, Behavior is cooperative, crying. Pain: Location: back mlc and epigastric area Pain currently is 10 out of 10 on a pain scale. Neurological: Level of Consciousness is awake, alert, Oriented to person, place, time. Respiratory: Airway is patent Respiratory effort is even, unlabored, Respiratory pattern is regular. GI: Abdomen is non- distended Bowel sounds present X 4 quads. Abd is soft X 4 quads Reports diarrhea, nausea, vomiting. Derm: Skin is normal, 5 incision sites noted, steri strips in place, no redness or swelling. no drainage noted. 05:40 Reassessment: Patient appears in no apparent distress at this time. Patient states mlc symptoms have not improved. 07:01 Reassessment: Patient appears in no apparent distress at this time. Patient states mlc symptoms have not improved. pt medicated per order. resp easy/unlabored. IV fluids infusing per order. 07:36 General: Appears in no apparent distress, comfortable, Behavior is appropriate for age, pml cooperative. Pain: Location: epigastric area Pain currently is 8 out of 10 on a pain scale. Neurological: Level of Consciousness is awake, alert, Oriented to person, place, time. Cardiovascular: Capillary refill < 3 seconds. Respiratory: Airway is patent Respiratory effort is even, unlabored. Derm: Skin is normal. 08:36 General: Pt to CT - tolerated without complaints. reports pain is unchanged, 8/10 - pml resps easy and unlabored, skin p/w/d . 09:25 General: PSA in to see patient. . pml 10:58 General: Appears in no apparent distress, Behavior is appropriate for age, cooperative. pml Pain: Location: epigastric area Pain currently is 9 out of 10 on a pain scale. Neurological: Level of Consciousness is awake, alert, Oriented to person, place, time. Cardiovascular: Capillary refill < 3 seconds. Respiratory: Airway is patent Respiratory effort is even, unlabored. GI: Abdomen is non- distended. Derm: Skin is normal. 12:04 General: resting on stretcher, resps easy and unlabored, skin p/w/d. reports pain 9/10. pml family at bedside. pt appears to only request pain medications when SO is at bedside. 12:58 General: continues to report pain 9/10. resps easy and unlabored, skin p/w/d. pml 13:06 General: First contact with pt. In to discharge pt. Pt states she is in excruciating ld5 pain and "you can't send me home against my will". Pt expressing concerns over wait time to see orthopaedic group and pain management. "I'm going to end up right back here like I am today. I can't deal with this pain." Primary RN and charge entry clerk made aware of pt's concerns. 13:36 General: In to further discuss pts concerns. pt states she is unwilling to be pml discharged - states she does not want to be back here with pain at 0300. pt is upset that this headline writer can not provider her with a definitive time frame for follow up appt and definitive care and treatment. pt expressed she was nauseated from pain and unable to keep fluids down. half drank coke at bedside. MD Dolan aware of pts nausea and medicated as indicated on emar. pt accusatory to this headline writer stating we do not care about her pain and saying we removed her gal bladder 5 days ago because we mis diagnosed her and saying that we caused her to have an unnecessary surgery. Pt awaiting further discussion regarding discharge vs admission with MD Dolan who is occupied with critical patients. Pt aware of wait times. . 14:48 General: ambulatory to restroom independently. gait steady without distress. . pml 15:15 General: MD Pizarro in to see patient. pml Social Work Consult: 09:32 Social Work Note: Met with Pt and at bedside per request Dr. Dolan. Pt was rb A&Ox3, calm and cooperative, denied SI/HI, denied AH/ VH. Pt reported in a lot of pain , denies being depressed, but frustrated she cannot get comfortable. Pt reported lack of sleep do to pain also. Pt's PCP is Dr. Oconnor \\T\\ Karyn. Referrals given. No further interventions given at this time. Vital Signs: 04:24 BP 132 / 68 (auto/); pml 04:27 BP 132 / 68 RA Sitting (auto/); Pulse 81 MON; Resp 20 S; Temp 98.0(O); Pulse Ox 98% on cln R/A; Weight 78.93 kg (R); Height 5 ft. 5 in. (165.10 cm) (R); Pain 10/10; 04:28 Pulse 82 MON; Pulse Ox 98% ; pml 06:56 BP 109 / 55 (auto/); mlc 06:58 Pulse 72 MON; Pulse Ox 97% ; mlc 07:16 Pulse 74 MON; Pulse Ox 93% ; pml 07:16 BP 118 / 59 (auto/); pml 07:36 Pulse 74 MON; Pulse Ox 96% ; pml 07:36 BP 103 / 55 (auto/); pml 07:56 Pulse 76 MON; Pulse Ox 97% ; pml 07:56 BP 107 / 55 (auto/); pml 08:16 Pulse 78 MON; Pulse Ox 97% ; pml 08:16 BP 108 / 55 (auto/); pml 10:58 BP 117 / 64; Pulse 73; Resp 18; Pulse Ox 98% on R/A; Pain 9/10; pml 11:15 Pain 9/10; pml 04:27 Body Mass Index 28.95 (78.93 kg, 165.10 cm) cln Vitals: 04:30 Log In Time N/A - ambulance arrival. [facility] ED Course: 04:21 Patient visited by Janak Gill, Tube Builder Airplane. ml3 04:21 Karyn [facility] is Private Physician. ml3 04:21 Gross,Alejandra,RN is Primary Nurse. ml3 04:21 Patient moved to Waiting ml3 04:21 Patient moved to 10 ml3 04:27 Triage Initiated mlc 04:28 Patient visited by Geena Alfaro PCA. cln 04:28 Pt greeted and oriented to ED. Patient advised of names of staff involved in care, cln location of call griffith, wait times and NPO status. Patient has correct armband on for positive identification. Placed in gown. Bed in low position. Call light in reach. Side rails up X 1. 04:38 Patient visited by Alejandra Gross RN. mlc 05:42 Sumeet Chew DO is Attending Physician. mm11 05:42 Patient visited by Sumeet Chew DO. mm11 05:56 Patient visited by Sumeet Chew DO. mm11 06:49 BLOOD CULTURES Sent. mlc 06:50 -Blood Culture Sent. mlc 06:50 Amylase Sent. mlc 06:50 Liver Profile Sent. mlc 06:50 Lipase Sent. mlc 06:50 HCG,Serum Qualitative Sent. mlc 06:50 CBC with Diff Sent. mlc 06:50 Basic Metabolic Profile Sent. mlc 06:58 The patient / caregiver is instructed regarding the plan of care and ED course. mlc 07:02 Pulse ox on. NIBP on. mlc 07:02 Inserted saline lock: 20 gauge in left hand and blood collected. The patient tolerated mlc the procedure well. 07:03 Patient visited by Alejandra Gross RN. mlc 07:29 Yue Tenorio RN is Primary Nurse. pml 07:37 Patient visited by Yue Tenorio RN. pml 08:14 Patient visited by Sumeet Chew DO. mm11 08:30 Attending Physician role handed off by Sumeet Chew DO ml 08:30 Melina Gonzalez MD is Attending Physician. ml 08:37 Patient visited by Yue Tenorio RN. pml 09:25 Patient visited by Yue Tenorio RN. pml 09:28 PSA Outpatient Referrals was scanned into Pharm[employer] and attached to record. dsf 10:12 CT ABD & PELVIS: IV Contrast Only Returned. EDMS 10:26 Patient visited by Tona Strickland PCA. ct3 11:08 Patient moved to MRI kpj 11:45 Primary Nurse role handed off by Alejandra Gross,DINESH ac 12:08 Patient visited by Yue Tenorio,DINESH. pml 12:42 Patient moved to 10 ar3 12:51 Karyn [facility] is Referral Physician. ml 12[facility]. ml 12:58 Patient visited by Yue Tenorio,RN. pml 13:09 Patient visited by Spring Ahuja,DINESH. ld5 13:39 Patient visited by Yue Tenorio,DINESH. pml 14:12 Maru Pizarro is Hospitalizing Provider. ml 14:50 Patient visited by Yue Tenorio,DINESH. pml 14:52 Patient visited by Doreen Larry. sew 14:52 Diet: Patient given regular meal. sew 15:12 -MRI-Spine,Thoracic without contrast Returned. EDMS 15:15 Patient visited by Yue Tenorio,DINESH. pml 15:20 Patient moved to I8 / 16 [facility] 16:15 Discontinued lock intact, bleeding controlled, pressure dressing applied, left hand due kpj to pt stating iv site painful with flush. Inserted saline lock: 20 gauge in right antecubital area The patient tolerated the procedure well. 19:04 Patient visited by Jerome Jonas PCA. kb5 19:45 No procedures done that require assistance. mlc Administered Medications: 06:58 Drug: NS 0.9% 1000 ml [sodium chloride 0.9 % intravenous solution] Route: IV; Rate: mlc bolus; Site: left wrist; 06:58 Drug: Ondansetron 4 mg [ondansetron HCl 2 mg/mL intravenous solution (2 mL)] Route: mlc IVP; Site: left wrist; 06:58 Drug: Dilaudid - HYDROmorphone 0.5 mg [hydromorphone 1 mg/mL injection syringe (0.5 mlc mL)] Route: IVP; Site: left wrist; 11:00 Drug: Dilaudid - HYDROmorphone 0.5 mg [hydromorphone 1 mg/mL injection syringe (0.5 pml mL)] Route: IVP; Site: left hand; 11:15 Follow up: Pain 9/10 Adult; Response: No significant change. pml 12:12 Drug: Dilaudid - HYDROmorphone 0.5 mg [hydromorphone 1 mg/mL injection syringe (0.5 pml mL)] Route: IVP; Site: left hand; 12:58 Drug: oxyCODONE-acetaminophen 2 tabs [oxycodone-acetaminophen 5 mg-325 mg tablet (2 pml tabs)] Route: PO; 13:36 Drug: Ondansetron ODT 4 mg [ondansetron 4 mg disintegrating tablet (1 tabs)] Route: PO; pml 16:15 Drug: morphine 4 mg [morphine 4 mg/mL intravenous cartridge (1 mL)] Route: IVP; Site: [facility] right antecubital; Order Results: Lab Order: Amylase; SPEC'M 07/27/16 06:30 Test: AMYLASE; Value: 30; Range: 25-115; Units: U/L; Status: F Lab Order: Basic Metabolic Profile; SPEC' 07/27/16 06:30 Test: GLUCOSE, FASTING; Value: 87; Range: 70-105; Units: MG/DL; Status: F Test: BLOOD UREA NITROGEN; Value: 10; Range: 7-18; Units: MG/DL; Status: F Test: CREATININE FOR GFR; Value: 0.74; Range: 0.55-1.02; Units: MG/DL; Status: F Test: SODIUM LEVEL; Range: 136-145; Units: MEQ/L; Status: I Test: POTASSIUM SERUM; Range: 3.5-5.1; Units: MEQ/L; Status: I Test: CHLORIDE LEVEL; Range: 98-107; Units: MEQ/L; Status: I Test: CARBON DIOXIDE LEVEL; Range: 21-32; Units: MEQ/L; Status: I Test: ANION GAP; Range: 8-16; Units: MEQ/L; Status: I Test: CALCIUM LEVEL; Range: 8.5-10.1; Units: MG/DL; Status: I Test: GLOMERULAR FILTRATION RATE; Value: > 60.0; Range: >60; Status: F Test: SODIUM LEVEL; Value: 143; Range: 136-145; Units: MEQ/L; Status: F Test: POTASSIUM SERUM; Value: 3.6; Range: 3.5-5.1; Units: MEQ/L; Status: F Test: CHLORIDE LEVEL; Value: 111; Range: 98-107; Abnormal: Above high normal; Units: MEQ/L; Status: F Test: CARBON DIOXIDE LEVEL; Value: 22; Range: 21-32; Units: MEQ/L; Status: F Test: ANION GAP; Value: 10; Range: 8-16; Units: MEQ/L; Status: F Test: CALCIUM LEVEL; Value: 8.8; Range: 8.5-10.1; Units: MG/DL; Status: F Test Note: ; Units are mL/min/1.73 m2 Chronic Kidney Disease Staging per NKF: Stage I & II GFR >=60 Normal to Mildly Decreased Stage III GFR 30-59 Moderately Decreased Stage IV GFR 15-29 Severely Decreased Stage V GFR <15 Very Little GFR Left ESRD GFR <15 on CLIMBING GUIDE Lab Order: CBC with Diff; SPEC'M 07/27/16 06:30 Test: WHITE BLOOD COUNT; Value: 12.6; Range: 4.0-10.0; Abnormal: Above high normal; Units: K/mm3; Status: F Test: RED BLOOD COUNT; Value: 3.65; Range: 4.00-5.40; Abnormal: Below low normal; Units: M/mm3; Status: F Test: HEMOGLOBIN; Value: 11.0; Range: 12.0-16.0; Abnormal: Below low normal; Units: g/dl; Status: F Test: HEMATOCRIT; Value: 34.4; Range: 36.0-47.0; Abnormal: Below low normal; Units: %; Status: F Test: MEAN CORPUSCULAR VOLUME; Value: 94.2; Range: 80.0-96.0; Units: fl; Status: F Test: MEAN CORPUSCULAR HEMOGLOBIN; Value: 30.1; Range: 27.0-33.0; Units: pg; Status: F Test: MEAN CORPUSCULAR HGB CONC; Value: 32.0; Range: 32.0-36.5; Units: g/dl; Status: F Test: RED CELL DISTRIBUTION WIDTH; Value: 13.8; Range: 11.5-14.5; Units: %; Status: F Test: PLATELET COUNT, AUTOMATED; Value: 800; Range: 150-450; Abnormal: Above high normal; Units: k/mm3; Status: F Test: NEUTROPHILS %; Value: 65.9; Range: 36.0-66.0; Units: %; Status: F Test: LYMPH %; Value: 22.8; Range: 24.0-44.0; Abnormal: Below low normal; Units: %; Status: F Test: MONO %; Value: 5.9; Range: 0.0-5.0; Abnormal: Above high normal; Units: %; Status: F Test: EOS %; Value: 2.2; Range: 0.0-3.0; Units: %; Status: F Test: BASO %; Value: 0.5; Range: 0.0-1.0; Units: %; Status: F Test: LARGE UNSTAINED CELL %; Value: 2.7; Range: 0.0-4.0; Units: %; Status: F Test: NEUTROPHILS #; Value: 8.3; Range: 1.8-7.7; Abnormal: Above high normal; Units: K/mm3; Status: F Test: LYMPH #; Value: 2.9; Range: 1.5-4.5; Units: K/mm3; Status: F Test: MONO #; Value: 0.7; Range: 0.0-0.8; Units: K/mm3; Status: F Test: EOS #; Value: 0.3; Range: 0.0-0.50; Units: K/mm3; Status: F Test: BASO #; Value: 0.1; Range: 0.0-0.2; Units: K/mm3; Status: F Test: LARGE UNSTAINED CELL #; Value: 0.3; Range: 0.0-0.4; Units: K/mm3; Status: F Lab Order: HCG,Serum Qualitative; SPEC07/27/16 06:30 Test: HCG, SERUM QUALITATIVE; Value: NEGATIVE; Range: NEGATIVE; Status: F Lab Order: Lipase; SPEC07/27/16 06:30 Test: LIPASE; Value: 90; Range: 73-393; Units: U/L; Status: F Lab Order: Liver Profile; SPEC07/27/16 06:30 Test: AST/SGOT; Value: 13; Range: 15-37; Abnormal: Below low normal; Units: U/L; Status: F Test: ALT/SGPT; Value: 17; Range: 12-78; Units: U/L; Status: F Test: ALKALINE PHOSPHATASE; Value: 69; Range: 45-117; Units: U/L; Status: F Test: BILIRUBIN,TOTAL; Value: 0.2; Range: 0.2-1.0; Units: MG/DL; Status: F Test: BILIRUBIN,DIRECT; Value: < 0.1; Range: 0.0-0.2; Units: MG/DL; Status: F Test: TOTAL PROTEIN; Value: 6.4; Range: 6.4-8.2; Units: GM/DL; Status: F Test: ALBUMIN; Value: 2.7; Range: 3.2-5.2; Abnormal: Below low normal; Units: GM/DL; Status: F Test: ALBUMIN/GLOBULIN RATIO; Value: 0.73; Range: 1.00-1.93; Abnormal: Below low normal; Status: F Lab Order: Urinalysis; SPEC'M 07/27/16 06:31 Test: APPEARANCE, URINE; Value: CLEAR; Range: CLEAR; Status: F Test: COLOR, URINE; Value: YELLOW; Range: YELLOW; Status: F Test: PH,URINE; Value: 7.0; Range: 5.0-9.0; Units: UNITS; Status: F Test: SPECIFIC GRAVITY URINE AUTO; Value: 1.012; Range: 1.002-1.035; Status: F Test: PROTEIN, URINE AUTO; Value: NEGATIVE; Range: NEGATIVE; Units: mg/dL; Status: F Test: GLUCOSE, URINE (UA) AUTO; Value: NEGATIVE; Range: NEGATIVE; Units: mg/dL; Status: F Test: KETONE, URINE AUTO; Value: NEGATIVE; Range: NEGATIVE; Units: mg/dL; Status: F Test: UROBILINOGEN, URINE AUTO; Value: 0.2; Range: 0.0-2.0; Units: mg/dL; Status: F Test: BILIRUBIN, URINE AUTO; Value: NEGATIVE; Range: NEGATIVE; Status: F Test: NITRITE, URINE AUTO; Value: NEGATIVE; Range: NEGATIVE; Status: F Test: LEUKOCYTE ESTERASE, URINE AUTO; Value: NEGATIVE; Range: NEGATIVE; Status: F Test: BLOOD, URINE BLOOD; Value: NEGATIVE; Range: NEGATIVE; Status: F Test: WBC, URINE AUTO; Value: 2; Range: 0-3; Units: /HPF; Status: F Test: RBC, URINE AUTO; Value: 2; Range: 0-3; Units: /HPF; Status: F Test: BACTERIA, URINE AUTO; Value: NEGATIVE; Range: NEGATIVE; Status: F Test: SQUAMOUS EPITHELIAL CELL UR AU; Value: 1; Range: 0-6; Units: /HPF; Status: F Test: MUCUS, URINE; Value: SMALL; Range: NEGATIVE; Status: F Test: HYALINE CAST, URINE AUTO; Value: 0; Range: 0-1; Units: /LPF; Status: F Radiology Order: CT ABD & PELVIS: IV Contrast Only Test: CT ABD & PELVIS: IV Contrast Only REASON FOR EXAMINATION: post op;Abd. Pain - Generalized, Nn-focal Exam; CT scan of the abdomen and pelvis with IV but without oral contrast:; ; History: Postoperative abdominal pain. Comparison CT study is from July 152015. The patient has undergone cholecystectomy in the interval.; ; CT contrast dose: 100 mL of Isovue 370 is administered intravenously.; ; CT findings: Digital preliminary weapons system instrument mechanic radiograph demonstrates clips in the; right upper quadrant of the abdomen and tubal ligation bands in the pelvis.; There are one or two loops of air-filled borderline caliber small bowel in the; left mid abdomen. The lung bases are clear. Bilateral breast augmentation; implants are seen in place. The liver and the spleen remain normal in size and; homogeneous in texture. No adrenal lesion is seen. There is some postoperative; edema or fluid in the gallbladder fossa but no abscess or defined fluid; collection is seen. A normal appendix is seen in the pelvis. There is no; evidence of free intraperitoneal air. No uterine or ovarian abnormality is seen.; Small and large intestinal bowel loops are unremarkable on axial CT images.; There is some small and large bowel gas.; ; The kidneys enhance symmetrically and are morphologically intact. No bladder; abnormalities are seen. No bony abnormality is noted. No abdominal wall defect; or abdominal wall hematoma is seen. There are some mild postoperative changes in; the anterior abdominal wall suggesting a recent laparoscopic procedure.; ; Impression:; ; No complication identified. Minimal fluid adjacent to the clips in the; gallbladder post cholecystectomy. No abscess, biloma, free air or evidence of; significant ileus or obstruction seen.; ; ; Signed by; Jose Onofre MD 07/27/2016 10:23 A; Radiology Order: -MRI-Spine,Thoracic without contrast Test: -MRI-Spine,Thoracic without contrast REASON FOR EXAMINATION: rule out herniated disk; MRI thoracic spine without contrast:; ; History: Chronic interscapular pain extending down the back. No recent injury.; Five days post cholecystectomy.; ; Technique: Sagittal and axial T1 and T2-weighted scans are acquired in the usual; fashion with and without fat saturation. Sequences include spin echo, turbo; spin-echo, and STIR imaging sequences.; ; MRI findings: Cortical and medullary bone signal intensity are normal.; Alignment is normal. Disc spaces are maintained. Thoracic cord is normal in; coarse, caliber and signal intensity on T1 and T2-weighted scans. No extraspinal; abnormality is seen. No neural foraminal lesion is appreciated.; ; There is a small focal disc protrusion at the T8-9 disc margin centrally effacing; the ventral subarachnoid space but not contacting or compressing the thoracic; cord. No other thoracic disc protrusion is seen. No cord lesion is seen. No; other cord compression is seen. Exam is otherwise unremarkable.; ; Impression:; ; Small central disc protrusion at T8-9 effacing the ventral subarachnoid space but; not contacting or compressing the thoracic cord. Otherwise negative.; ; ; Signed by; Jsoe Onofre MD 07/27/2016 03:39 P; Outcome: 12:52 Discharge ordered by Provider. ml 14:14 Decision to Hospitalize by Provider. ml 19:45 Discharge Assessment: Patient awake, alert and oriented x 3. No cognitive and/or mlc functional deficits noted. Patient verbalized understanding of disposition instructions. patient administered narcotics - yes. Patient was admitted to the hospital or transferred to another facility. The following High Risk Discharge criteria are identified: None. Admitted to Pediatrics via wheelchair. Condition: stable. CT Study completed. Property :Personal belongings accompany Pt. 19:46 Patient left the ED. [facility] Signatures: Dispatcher [employer] EDMS Melina Gonzalez MD MD ml Jobson, Karen, RN RN Carolina Rich, PSA PSA Nimesh Garcia, PSA PSA Janak Castellano, Tube Builder Airplane Unit ml3 Jerome Jonas, BLEACH BOILER PACKER BLEACH BOILER PACKER storm5 Sumeet Chew, DO mm11 Ida Berrios, BLEACH BOILER PACKER BLEACH BOILER PACKER ar3 Spring Ahuja,RN RN ld5 Tona Strickland, BLEACH BOILER PACKER BLEACH BOILER PACKER ct3 Debi Vigil,RN RN Yue Marlow RN RN pml Wallace, Sarah sew Booth, Mandy,RN RN [facility] Angelina, Geena, BLEACH BOILER PACKER BLEACH BOILER PACKER cln MTDD
[2016-07-27 19:58] VITALS: BP 121/62
[2016-07-27] MEDS: DOCUSATE SODIUM 100 MG CAP PO SCH (20:32)
[2016-07-27] MEDS: SENOKOT S TAB PO SCH (20:32)
[2016-07-27] MEDS: zolPIDEM TARTRATE 5 MG TAB PO SCH (20:32)
[2016-07-27] MEDS: oxyCODONE 10 MG CR TAB PO SCH (20:33)
[2016-07-27] MEDS: GABAPENTIN 300 MG CAP PO SCH (21:03)
[2016-07-27] MEDS: QUEtiapine FUMARATE 200 MG TAB PO SCH (21:03)
[2016-07-27] MEDS: IBUPROFEN 800 MG TAB PO SCH (21:03)
[2016-07-27] MEDS: CYCLOBENZAPRINE 10 MG TAB PO SCH (21:03)
[2016-07-28] MEDS: MORPHINE 2 MG/ML 1ML SYRINGE IV PRN ×3 (02:33→14:42)
[2016-07-28 04:20] VITALS: BP 110/56
[2016-07-28] MEDS: IBUPROFEN 800 MG TAB PO SCH ×3 (06:02→21:23)
[2016-07-28] MEDS: GABAPENTIN 300 MG CAP PO SCH ×3 (06:02→21:23)
[2016-07-28] MEDS: CYCLOBENZAPRINE 10 MG TAB PO SCH ×2 (06:05→13:16)
[2016-07-28 06:56] LABS: BASO % 0.7 % (0.0-1.0); EOS # 0.3 K/mm3 (0.0-0.50); EOS % 3.4 % (0.0-3.0); LARGE UNSTAINED CELL # 0.4 K/mm3 (0.0-0.4); LARGE UNSTAINED CELL % 5.9 % (0.0-4.0); LYMPH # 2.9 K/mm3 (1.5-4.5); LYMPH % 38.5 % (24.0-44.0); MEAN CORPUSCULAR HGB CONC 32.1 g/dl (32.0-36.5); MEAN CORPUSCULAR VOLUME 93.6 fl (80.0-96.0); MONO # 0.6 K/mm3 (0.0-0.8); MONO % 8.2 % (0.0-5.0); NEUTROPHILS # 3.2 K/mm3 (1.8-7.7); NEUTROPHILS % 43.3 % (36.0-66.0); PLATELET COUNT, AUTOMATED 622 k/mm3 (150-450); RED CELL DISTRIBUTION WIDTH 13.7 % (11.5-14.5); WHITE BLOOD COUNT 7.5 K/mm3 (4.0-10.0)
[2016-07-28 07:13] LABS: ANION GAP 10 MEQ/L (8-16); BLOOD UREA NITROGEN 7 MG/DL (7-18); CALCIUM LEVEL 8.3 MG/DL (8.5-10.1); CARBON DIOXIDE LEVEL 24 MEQ/L (21-32); CHLORIDE LEVEL 110 MEQ/L (98-107); CREATININE FOR GFR 0.54 MG/DL (0.55-1.02); GLOMERULAR FILTRATION RATE > 60.0 (>60); GLUCOSE, FASTING 81 MG/DL (70-105); MAGNESIUM LEVEL 2.1 MG/DL (1.8-2.4); POTASSIUM SERUM 3.4 MEQ/L (3.5-5.1); SODIUM LEVEL 144 MEQ/L (136-145)
[2016-07-28 08:00] VITALS: BP 129/76
[2016-07-28] MEDS: SENOKOT S TAB PO SCH ×2 (08:14→21:24)
[2016-07-28] MEDS: DOCUSATE SODIUM 100 MG CAP PO SCH ×2 (08:14→21:23)
[2016-07-28] MEDS: CitaloPRAM (CeleXA) 20 MG TAB PO SCH (08:14)
[2016-07-28] MEDS: oxyCODONE 10 MG CR TAB PO SCH ×2 (08:15→21:23)
[2016-07-28] MEDS ORDERED: POTASSIUM CHLORIDE 10 MEQ SR TABLET PO ONE (09:00)
[2016-07-28] MEDS: PERCOCET 5MG/325MG TAB PO PRN ×3 (09:09→19:25)
[2016-07-28 16:00] VITALS: BP 138/88
[2016-07-28] MEDS: BACLOFEN 10 MG TAB PO SCH (18:24)
--- NOTE | 2016-07-28 18:37 | CR.PDOC ---
[facility] Pain Clinic Consultation General Date of Consultation: 07/28/16 Chief Complaint The patient is a 36-year-old female admitted with a reason for visit of Intractable Back Pain. History of Present Illness Patient reports that she began experiencing pain starting in the mid thoracic region radiating into the chest and upper abdomen right side greater than left approximately 5-6 months ago. Initially the pain was more intermittent. Over the last several weeks pain has become much more intense notes pain is centered in the mid back radiates to the shoulder blades around the ribs and into the upper abdomen.Patient reports that she has status post of her second child in December 2015. She has had multiple visits to the emergency room over the last 2 months. On 07/17/2016 she came to the emergency room with complaint of nausea vomiting and right upper quadrant pain which had been progressing progressively getting worse over the last 12 days. She was seen in the emergency room by Dr. Sung Ferris she was found to have an elevated white count and there was concern of acute cholecystitis. She was started on IV antibiotics and did undergo a laprascopic cholecystectomy on 07/22/2016. She was discharged from the hospital on 07/23/2016 and did return on 07/27/2016 with continued severe mid thoracic pain radiating into the upper abdomen. At this time an MRI of the thoracic spine was completed and a new finding of thoracic discomfort protrusion at T8-9 was found. During this hospitalization she has been started on baclofen and Percocet and IV morphine with only short lasting relief. She denies any weakness in her lower extremities. She does note a sense of tingling and numbness occasionally into the lower extremities as well as some pain. Denies loss of bowel or bladder control. Rates her pain at this time is an 8-10 over 10. Home Medications Scheduled (Senna Plus 8.6-50 mg) 1 Tab Tab 1 TAB PO BID Citalopram Hydrobromide (Citalopram Hydrobromide) 20 Mg Tab 40 MG PO DAILY ( Reported) Gabapentin (Gabapentin) 300 Mg Cap 300 MG PO QPM (Reported) Melatonin (Melatonin) 3 Mg Tab 3 MG PO QHS (Reported) Quetiapine Fumerate (Seroquel) 200 Mg Tab 200 MG PO QHS (Reported) Zolpidem Tartrate (Ambien) 10 Mg Tab 10 MG PO QHS (Reported) Scheduled PRN Ondansetron (Zofran Odt) 4 Mg Tab 4 MG PO PRN PRN PRN NAUSEA OR VOMITING ( Reported) Allergies Coded Allergies: No Known Drug Allergy (Verified Allergy, Unknown, 05/15/14) Past Medical History Family History Significant Family History: No pertinent family hx Family History Lives with and new baby. She is originally from [place] and has no family of her own in the area. Social History Psychosocial History: Anxiety Smoker: non-smoker Alcohol: denies Drugs: denies Review of Systems Subjective Constitutional: Reports: fatigue, nausea (with pain), other (is not currently nursing.), vomiting (with pain) HEENT: Reports: throat swelling, Denies: head aches, other (difficulty swallowing) Skin: Denies: breakdown, itching, lesions, rash Pulmonary: Reports: difficulty breathing, Denies: cough, dyspnea Cardiovascular: Reports: other (history of heart murmur), Denies: chest pain, palpitations Gastrointestinal: Reports: abdominal pain (upper quadrant and epigastric status post cholecystectomy), nausea (with pain), normal bowel movements, vomiting (with pain), Denies: constipation, diarrhea, loss of bowel control, other Genitourinary: Denies: dysuria, hematuria, loss of bladder control Hematologic: Denies: anemia, blood clots, blood dyscrasias, enlarged lymph nodes, swollen glands Endocrine: Reports: Thyroid dysfunction, Denies: Diabetes mellitus Musculoskeletal: Reports: leg pain, muscle pain, muscle stiffness, other ( midthoracic pain), spasms Neurological: Reports: numbness (in the lower legs), pre-existing deficit, tingling (in lower legs), Denies: headache, migraines, other, tremors, weakness Psych: Reports: anxiety, depression, Denies: thoughts of harming other, thoughts of self harm Physical Examination Physical Examination Vital Signs/I&O Vital Signs Date Time Temp Pulse Resp B/P Pulse Ox O2 Delivery O2 Flow Rate FiO2 07/28/16 16:00 96.0 69 18 138/88 98 Room Air I&O- Last 24 Hours up to 6 AM 07/28/16 06:00 Intake Total 120 ml Output Total 0 ml Balance 120 ml Recent Travel/Sick Contacts: Denies: Recent sick contacts, Recent travel General Exam: Positive: alert, attentive, moderate distress, oriented times three, talkative Visual Analog Score (VAS) For: 9 ENT EXAM: Positive: normocephalic Neck Exam: Positive: Full range of motion, Negative: Lymphadenopathy, Thyromegaly Chest Exam: Positive: Clear to auscultation, Negative: Rales, Wheezing Heart Exam: Positive: Normal S1, S2, Regular rate and rhythm, Negative: Murmurs, Rubs Abdominal Exam: Positive: Nondistended, Normal bowel sounds, Other (tender at laparoscopy incisions no redness), Soft Extremity Exam: Positive: Other (compression stockings on), Negative: Edema Skin Exam: Positive: Dry, Warm, Negative: Lesions, Rashes Neuro Exam: Positive: Muscle Strength U/L Ext., Normal Tone, Reflexes 2+ Inspection of spine Point tenderness present over the mid thoracic spine between T 5 and T10. Trigger points and tight fibrous bands identified along the thoracic paravertebral muscles. Trigger points are also identified along the scapula bilaterally. Tenderness to palpation along the T6-T8 dermatomes bilaterally. Skin is inspected in this area and no evidence of any rash or blisters. Complains of intense increase in pain with thoracic spine compression. Minimal tenderness with palpation over the lumbar spinous processes or across the sacrum. No specific tenderness elicited with palpation over the sacral iliac joints. Is reluctant to move but no obvious weakness in the lower extremities. Able to flex bilaterally the hip knee and ankle. Diagnostic and Imaging Studies MRI of the thoracic spine was completed on 07/27/2016. This did demonstrate small central disc protrusion at T8-9 effacing the ventral subarachnoid space but not contacting or compressing the thoracic cord. No other thoracic disc protrusion was seen. No cord lesion was seen. No extraspinal abnormality was noted. Assessment/Plan Assessment 1. Mid thoracic pain 2. Thoracic disc displacement with radiculopathy. 3. Recent lap cholecystectomy Plan Recommendation and plan. I did discuss this patient and the case with Dr. Meyers here at the pain Center. She is just 5 days status post cholecystectomy. At this time we would hold on doing a thoracic epidural. I did offer her treatment with trigger point injections to the midthoracic region. The patient is in agreement with this plan. Currently she is having significant radicular discomfort. I will take the liberty of discontinuing cyclobenzaprine and starting her on baclofen 10 mg every 6 hours. Would have her continue with her current pain medications as already written. We will plan to see her in the Pain Center tomorrow for trigger point injections. She has already been scheduled to see the on-post pain clinic. We will have her follow-up with them after discharge. If they wish we can certainly move forward with a thoracic epidural in the future. Thank you Dr. Mosley for allowing us to participate in the care of your patient Spring Contreras. Should you have any questions we'll be glad to discuss this with you at any time. He may certainly contact us here at the pain center at [phone] option 4. Cc please to [facility]. Birgit Dolan Jul 28, 2016 18:37 Plan Recommendation and plan. I did discuss this patient and the case with Dr. Meyers here at the pain Center. She is just 5 days status post cholecystectomy. At this time we would hold on doing a thoracic epidural. I did offer her treatment with trigger point injections to the midthoracic region. She patient is in agreement with this plan. Currently she is having significant radicular discomfort. I will take the liberty of discontinuing cyclobenzaprine and starting her on baclofen 10 mg every 6 hours. Would have her continue with her current pain medications as already written. We will plan to see her in the pain Center tomorrow for trigger point injections. She has already been scheduled to see the on post pain clinic. We will have her follow-up with them after discharge. If they wish we can certainly move forward with a thoracic epidural in the future. Thank you Dr. Mosley for allowing us to participate in the care of your patient Spring contreras. Should you have any questions we'll be glad to discuss this with you at any time. He may certainly contact us here at the pain center at option 4. Cc please to [facility]. Birgit Dolan Jul 28, 2016 18:37
[2016-07-28 20:00] VITALS: BP 129/63
[2016-07-28] MEDS: QUEtiapine FUMARATE 200 MG TAB PO SCH (21:24)
[2016-07-28] MEDS: zolPIDEM TARTRATE 5 MG TAB PO SCH (21:24)
[2016-07-29] VITALS: BP 118/69
[2016-07-29 04:00] VITALS: BP 124/70
[2016-07-29] MEDS: BACLOFEN 10 MG TAB PO SCH ×3 (04:27→12:27)
[2016-07-29] MEDS: PERCOCET 5MG/325MG TAB PO PRN (04:28)
[2016-07-29] MEDS: GABAPENTIN 300 MG CAP PO SCH ×2 (05:51→13:58)
[2016-07-29] MEDS: IBUPROFEN 800 MG TAB PO SCH ×2 (05:51→13:58)
[2016-07-29 07:25] LABS: BASO % 0.6 % (0.0-1.0); EOS # 0.2 K/mm3 (0.0-0.50); LARGE UNSTAINED CELL # 0.3 K/mm3 (0.0-0.4); LYMPH # 2.5 K/mm3 (1.5-4.5); LYMPH % 29.3 % (24.0-44.0); MEAN CORPUSCULAR HGB CONC 31.8 g/dl (32.0-36.5); MEAN CORPUSCULAR VOLUME 94.4 fl (80.0-96.0); MONO # 0.7 K/mm3 (0.0-0.8); MONO % 8.5 % (0.0-5.0); NEUTROPHILS # 4.6 K/mm3 (1.8-7.7); NEUTROPHILS % 54.5 % (36.0-66.0); PLATELET COUNT, AUTOMATED 633 k/mm3 (150-450); RED CELL DISTRIBUTION WIDTH 13.5 % (11.5-14.5); WHITE BLOOD COUNT 8.4 K/mm3 (4.0-10.0)
[2016-07-29 07:51] LABS: ANION GAP 11 MEQ/L (8-16); BLOOD UREA NITROGEN 11 MG/DL (7-18); CALCIUM LEVEL 8.6 MG/DL (8.5-10.1); CARBON DIOXIDE LEVEL 23 MEQ/L (21-32); CHLORIDE LEVEL 110 MEQ/L (98-107); GLOMERULAR FILTRATION RATE > 60.0 (>60); GLUCOSE, FASTING 77 MG/DL (70-105); POTASSIUM SERUM 4.1 MEQ/L (3.5-5.1); SODIUM LEVEL 144 MEQ/L (136-145)
[2016-07-29 08:00] VITALS: BP 99/60
[2016-07-29] MEDS: CitaloPRAM (CeleXA) 20 MG TAB PO SCH (08:25)
[2016-07-29] MEDS: DOCUSATE SODIUM 100 MG CAP PO SCH (08:25)
[2016-07-29] MEDS: SENOKOT S TAB PO SCH (08:26)
[2016-07-29] MEDS: oxyCODONE 10 MG CR TAB PO SCH (08:26)
[2016-07-29] MEDS ORDERED: ATROPINE SULF 1MG/10ML SYRINGE (J0461) As Ordered ONE (10:09)
[2016-07-29] MEDS ORDERED: BUPIVACAINE HCL 0.25% 30 ML VIAL As Ordered ONE (10:09)
[2016-07-29] MEDS ORDERED: TRIAMCINOLONE ACETONIDE SUSP 40 MG/ML VIAL (J3301) As Ordered ONE (10:09)
[2016-07-29] MEDS ORDERED: BUPIVACAINE HCL 0.25% 10 ML VIAL As Ordered ONE (10:09)
[2016-07-29] MEDS ORDERED: PERCOCET PO (14:08)
--- NOTE | 2016-07-29 18:42 | DS.PDOC ---
Discharge Summary General Date of Admission Jul 27, 2016 at 15:22 Date of Discharge Jul 29, 2016 at 14:55 Specialist/Consultants Involve YARIEL Burgos of Pain Mgmt. Dr. Simba Jacobson of Surgery Discharge Summary PROCEDURES PERFORMED DURING STAY: Trigger point injections of the midthoracic region with pain management COMPLICATIONS/CHIEF COMPLAINT: Intractable Back Pain ADMISSION DIAGNOSES: 1. . Thoracic back pain DISCHARGE DIAGNOSES: 1. . Thoracic back pain status post trigger point injections of the midthoracic region HISTORY OF PRESENT ILLNESS: 36-year-old female with past medical history of anxiety, depression, PTSD, recent cholecystectomy presented to the ER with a chief complaint of intractable back pain and abdominal pain. The patient states that she has been having chronic and intermittent lower back pain that has progressively worsened over the last 3-4 weeks. She states that nothing made the pain better, but it was worsened by lifting things. She did note feeling pins and needles in her lower extremities. However, she denied any urinary/fecal incontinence, or any saddle anesthesia. In the ER, an MRI of the spine was done and it showed a mild disc herniation at the level of T8-T9. The patient was admitted to the hospital service for pain management. Pain management did come to see the patient in consult and the patient was scheduled for trigger point injections to the midthoracic region to help with her pain. Upon evaluation of the patient this afternoon, the patient states that she is feeling much better after the trigger point injections. In addition, the patient states that Percocet has worked well for her breakthrough pain as well. She denies any symptoms associated with saddle anesthesia. At this time, the patient is requesting to go home and she is feeling much better and states that sleeping on the bed at the hospital has not been helping with her lower back pain. Of note, the patient does currently have a 5 month old son, who she states she is not breast-feeding. I've advised her that there is a concern of her taking narcotic medications if she is breast-feeding, she understands this, and states that she has not been doing so. Also of note, patient did have a CT scan of the abdomen done which was complaining of some abdominal pain. There were no acute findings noted on the CT scan of the abdomen. Dr. Jacobson of surgery was consulted given the fact that the patient had a cholecystectomy recently. There is no indication for any acute surgical management as per the surgery team. The recommendation was for the patient to follow-up within [address] Ferris as scheduled. DISCHARGE MEDICATIONS: Please see below. ALLERGIES: Please see below. PHYSICAL EXAMINATION ON DISCHARGE: VITAL SIGNS: Please see below. GENERAL: Awake, alert, oriented, in no acute distress HEENT: Atraumatic NECK: JVD CARDIOVASCULAR EXAMINATION: Normal rate, normal S1, S2 RESPIRATORY EXAMINATION: There to auscultation bilaterally ABDOMINAL EXAMINATION: Soft, nontender, nondistended EXTREMITIES: 5 out of 5 strength in lower extremities bilaterally on flexion/ extension of the hips, knees LABORATORY DATA: Please see below. IMAGING: MRI thoracic spine without contrast: History: Chronic interscapular pain extending down the back. No recent injury. Five days post cholecystectomy. Technique: Sagittal and axial T1 and T2-weighted scans are acquired in the usual fashion with and without fat saturation. Sequences include spin echo, turbo spin-echo, and STIR imaging sequences. MRI findings: Cortical and medullary bone signal intensity are normal. Alignment is normal. Disc spaces are maintained. Thoracic cord is normal in coarse, caliber and signal intensity on T1 and T2-weighted scans. No extraspinal abnormality is seen. No neural foraminal lesion is appreciated. There is a small focal disc protrusion at the T8-9 disc margin centrally effacing the ventral subarachnoid space but not contacting or compressing the thoracic cord. No other thoracic disc protrusion is seen. No cord lesion is seen. No other cord compression is seen. Exam is otherwise unremarkable. Impression: Small central disc protrusion at T8-9 effacing the ventral subarachnoid space but not contacting or compressing the thoracic cord. Otherwise negative. VTE Prophylaxis ordered?: Yes DISCHARGE CONDITION: Medically stable DISPOSITION: 01 Home, Self-Care ACTIVITY: As tolerated DIET: Regular diet ITEMS TO FOLLOWUP ON OUTPATIENT: 1. . Follow-up with primary care physician and pain management clinic within 1- 2 weeks DISCHARGE PLAN AND INSTRUCTIONS: 1. Follow up with primary care physician and pain management clinic within 1-2 weeks 2. Follow-up with Dr. Ferris of surgery for routine follow-up for status post cholecystectomy TIME SPENT ON DISCHARGE: Greater than 30 minutes. Vital Signs/I&Os Vital Signs Date Time Temp Pulse Resp B/P Pulse Ox O2 Delivery O2 Flow Rate FiO2 07/29/16 08:26 18 07/29/16 08:00 96.2 66 99/60 96 Room Air I&O- Last 24 Hours up to 6 AM 07/29/16 06:00 Intake Total 1460 ml Output Total 475 ml Balance 985 ml Laboratory Data Labs 24H Laboratory Tests 2 07/29/16 06:43: Anion Gap 11, White Blood Count 8.4, Red Blood Count 3.59L, Hemoglobin 10.8L, Hematocrit 33.9L, Mean Corpuscular Volume 94.4, Mean Corpuscular Hemoglobin 30.0 , Mean Corpuscular Hemoglobin Concent 31.8L, Red Cell Distribution Width 13.5, Platelet Count 633H, Neutrophils (%) (Auto) 54.5, Lymphocytes (%) (Auto) 29.3, Monocytes (%) (Auto) 8.5H, Eosinophils (%) (Auto) 3.0, Basophils (%) (Auto) 0.6 , Neutrophils # (Auto) 4.6, Lymphocytes # (Auto) 2.5, Monocytes # (Auto) 0.7, Eosinophils # (Auto) 0.2, Basophils # (Auto) 0.0, Blood Urea Nitrogen 11#, Creatinine 0.60, Sodium Level 144, Potassium Level 4.1#, Chloride Level 110H, Carbon Dioxide Level 23, Calcium Level 8.6, Glomerular Filtration Rate > 60.0, Large Unclassified Cells # 0.3, Large Unclassified Cells % 4.0, Magnesium Level 2.0 CBC/BMP Laboratory Tests 07/29/16 06:43 Calcium Level 8.6, Red Blood Count 3.59 L, Mean Corpuscular Volume 94.4, Mean Corpuscular Hemoglobin 30.0, Mean Corpuscular Hemoglobin Concent 31.8 L, Red Cell Distribution Width 13.5, Neutrophils (%) (Auto) 54.5, Lymphocytes (%) (Auto ) 29.3, Monocytes (%) (Auto) 8.5 H, Eosinophils (%) (Auto) 3.0, Basophils (%) ( Auto) 0.6, Neutrophils # (Auto) 4.6, Lymphocytes # (Auto) 2.5, Monocytes # (Auto ) 0.7, Eosinophils # (Auto) 0.2, Basophils # (Auto) 0.0 Microbiology Microbiology 07/27/16 Blood Culture - Preliminary, Resulted No Growth after 48 hours. All Specime... 07/27/16 Blood Culture - Preliminary, Resulted No Growth after 48 hours. All Specime... 07/27/16 Urine Culture - Final, Complete Medications Scheduled (Senna Plus 8.6-50 mg) 1 Tab Tab 1 TAB PO BID Citalopram Hydrobromide (Citalopram Hydrobromide) 20 Mg Tab 40 MG PO DAILY Gabapentin (Gabapentin) 300 Mg Cap 300 MG PO QPM Melatonin (Melatonin) 3 Mg Tab 3 MG PO QHS Quetiapine Fumerate (Seroquel) 200 Mg Tab 200 MG PO QHS Zolpidem Tartrate (Ambien) 10 Mg Tab 10 MG PO QHS Scheduled PRN Ondansetron (Zofran Odt) 4 Mg Tab 4 MG PO PRN PRN PRN NAUSEA OR VOMITING Oxycodone/Acetaminophen (Percocet 5MG/325MG Tablet) 1 Tab Tab 1 TAB PO Q4HP PRN PRN MODERATE PAIN (PS 5-7) Allergies Coded Allergies: No Known Drug Allergy (Verified Allergy, Unknown, 05/15/14) RUBEN FITCH MD Jul 29, 2016 18:42
--- NOTE | 2016-07-29 20:47 | EDDOCDS ---
Physician Documentation [facility] Name: Spring Sample Age: 36 yrs Sex: Female : 1980 Arrival Date: 07/27/2016 Time: 04:20 Bed I8 / 16 Private MD: Karyn [facility] Disposition: 07/27/16 14:14 Hospitalization ordered by Maru Pizarro for Inpatient Admission. Preliminary diagnosis are Low back pain - small thoracic herniated disk, mood disturbance, Acute pain, not elsewhere classified - intractable back pain. - Bed requested for M PED. - Status is Inpatient Admission. mlc - Condition is Stable. - Problem is new. - Symptoms are unchanged. - Notes: follow up with ortho as discussed. Dr Jacobson and I feel your abdominal pain is referred pain from herniated disc Historical: - Allergies: No known drug Allergies; - Home Meds: 1. Ambien 10 mg Oral tab 1 tab once daily 2. melatonin 10 mg Oral tab nightly 3. Seroquel 200 mg Oral tab 1 tab nightly 4. [place] 5-325 mg Oral tab 2 tabs every 4 hours (Last dose: 07/26/2016) 5. citalopram 40 mg Oral tab 1 tab once daily 6. Senna Plus 8.6-50 mg oral tab 1 tabs twice a day - PMHx: Anxiety; Depression; PTSD; - PSHx: D & C; Tonsillectomy; Breast Augmentation; Cholecystectomy; under eyelid; - Social history: Smoking status: Patient states former smoker of tobacco. No barriers to communication noted, The patient speaks fluent Malay. - Family history: Not pertinent. - : The pt / caregiver states he / she is not on anticoagulants. Home medication list is obtained from the patient. - Exposure Risk Screening:: None identified. 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 5 in. (165.10 cm) (R); Pain 10/; 04:28 Pulse 82 MON; Pulse Ox 98% ; pml 06:56 BP 109 / 55 (auto/); mlc 06:58 Pulse 72 MON; Pulse Ox 97% ; mlc 07:16 Pulse 74 MON; Pulse Ox 93% ; pml 07:16 BP 118 / 59 (auto/); pml 07:36 Pulse 74 MON; Pulse Ox 96% ; pml 07:36 BP 103 / 55 (auto/); pml 07:56 Pulse 76 MON; Pulse Ox 97% ; pml 07:56 BP 107 / 55 (auto/); pml 08:16 Pulse 78 MON; Pulse Ox 97% ; pml 08:16 BP 108 / 55 (auto/); pml 10:58 BP 117 / 64; Pulse 73; Resp 18; Pulse Ox 98% on R/A; Pain 9/10; pml 11:15 Pain 9/10; pml 04:27 Body Mass Index 28.95 (78.93 kg, 165.10 cm) cln MDM: 05:58 NS 0.9% 1000 ml IV at bolus once ordered. mm11 05:58 Ondansetron 4 mg IVP once ordered. mm11 05:58 -Blood Culture (Adults Only), peripheral from different site, or from device/port/PICC mm11 etc. if present ordered. 05:58 IV Saline Lock ordered. mm11 05:58 Undress patient appropriately for examination ordered. mm11 05:58 Dilaudid - HYDROmorphone 0.5 mg IVP every 30 minutes x3 ordered. mm11 05:59 NOTHING BY MOUTH+DIET ordered. EDMS 05:59 Amylase Ordered. EDMS 05:59 Basic Metabolic Profile Ordered. EDMS 05:59 CBC with Diff Ordered. EDMS 05:59 HCG,Serum Qualitative Ordered. EDMS 05:59 Lipase Ordered. EDMS 05:59 Liver Profile Ordered. EDMS 05:59 Urinalysis Ordered. EDMS 05:59 -Blood Culture Ordered. EDMS 05:59 Urine Culture Ordered. EDMS 06:07 -Blood Culture (Adults Only), peripheral from different site, or from device/port/PICC ml3 etc. if present complete. 06:08 BLOOD CULTURES Ordered. EDMS 07:53 Financial registration complete. lg 07:55 Basic Metabolic Profile Reviewed. mm11 07:55 CBC with Diff Reviewed. mm11 07:55 Liver Profile Reviewed. mm11 07:55 Amylase Reviewed. mm11 07:55 HCG,Serum Qualitative Reviewed. mm11 07:55 Lipase Reviewed. mm11 07:55 Urinalysis Reviewed. mm11 08:15 CT ABD & PELVIS: IV Contrast Only Ordered. EDMS 09:01 Consult PFS/PSA/Rn Lvn ordered. ml 09:02 BED REQUEST+ADM ordered. EDMS 09:28 PSA Outpatient Referrals was scanned into [employer] and attached to record. dsf 09:30 Consult PFS/PSA/Rn Lvn complete. rb 10:12 MRI Screening Tool - Place on chart, inform RN ordered. ml 10:13 -MRI-Spine,Thoracic without contrast Ordered. EDMS 10:16 MRI Screening Tool - Place on chart, inform RN complete. kpj 12:50 oxyCODONE-acetaminophen 5 mg-325 mg 2 tabs PO once ordered. ml 12:58 oxyCODONE-acetaminophen 5 mg-325 mg 2 tabs PO once ordered. pml 13:36 Ondansetron ODT Oral Disintegrating Tablet 4 mg PO once ordered. pml 13:57 BED REQUEST+ADM ordered. EDMS 13:58 REGULAR+DIET ordered. EDMS 14:14 ED course: pt refused to be discharged. i had discussed the diagnosis/plan/pain ml medication. she is refusing. dw dr carlisle - to admit. i strongly feel there is an element of diepression. both she and her interviewed - denies suicidal ideation/homicidal ideation. admits depression and poor coping skills. dr carlisle aware and will consult psych.mlg. 15:17 morphine 4 mg IVP once ordered. ml 15:29 Admission / Observation Status ordered. EDMS 15:29 REGULAR DIET ordered. EDMS 15:30 PHYSICAL THERAPY EVAL & TREAT ordered. EDMS 19:32 CBC WITH DIFFERENTIAL Ordered. EDMS 19:32 BASIC METABOLIC PROFILE Ordered. EDMS 19:32 MAGNESIUM LEVEL Ordered. EDMS 07/28 11:40 T-Sheet-- Draft Copy was scanned into [employer] and attached to record. gb Administered Medications: 07/27 06:58 Drug: NS 0.9% 1000 ml [sodium chloride 0.9 % intravenous solution] Route: IV; Rate: mlc bolus; Site: left wrist; 06:58 Drug: Ondansetron 4 mg [ondansetron HCl 2 mg/mL intravenous solution (2 mL)] Route: mlc IVP; Site: left wrist; 06:58 Drug: Dilaudid - HYDROmorphone 0.5 mg [hydromorphone 1 mg/mL injection syringe (0.5 mlc mL)] Route: IVP; Site: left wrist; 11:00 Drug: Dilaudid - HYDROmorphone 0.5 mg [hydromorphone 1 mg/mL injection syringe (0.5 pml mL)] Route: IVP; Site: left hand; 11:15 Follow up: Pain 9/10 Adult; Response: No significant change. pml 12:12 Drug: Dilaudid - HYDROmorphone 0.5 mg [hydromorphone 1 mg/mL injection syringe (0.5 pml mL)] Route: IVP; Site: left hand; 12:58 Drug: oxyCODONE-acetaminophen 2 tabs [oxycodone-acetaminophen 5 mg-325 mg tablet (2 pml tabs)] Route: PO; 13:36 Drug: Ondansetron ODT 4 mg [ondansetron 4 mg disintegrating tablet (1 tabs)] Route: PO; pml 16:15 Drug: morphine 4 mg [morphine 4 mg/mL intravenous cartridge (1 mL)] Route: IVP; Site: [facility] right antecubital; Signatures: Dispatcher [employer] EDMS Melina Gonzalez MD MD ml Jobson, Karen, RN RN [facility] Carolina Linder, PSA PSA rb Jossie Candelaria, Reg Reg gb Eder Jaffe, Reg Reg lg Janak Gill, Heat Engineering Teacher Unit ml3 Sumeet Chew, DO mm11 Debi Vigil RN RN dsf Quay, Paulina, RN RN [facility] Alejandra Gross RN RN [facility] [place] Brynn Adkins RN RN [id number] The chart was reviewed and I authenticate all verbal orders and agree with the evaluation and treatment provided.Attachments: 07/28 11:40 T-Sheet-- Draft Copy gb Chart Complete MTDD
--- NOTE | 2016-07-29 20:47 | EDDOCDS ---
Physician Documentation [facility] Name: Spring Sample Age: 36 yrs Sex: Female : 1980 Arrival Date: 07/27/2016 Time: 04:20 Bed I8 / 16 Private MD: Karyn [facility] [place] Disposition: 07/27/16 14:14 Hospitalization ordered by Maru Pizarro for Inpatient Admission. Preliminary diagnosis are Low back pain - small thoracic herniated disk, mood disturbance, Acute pain, not elsewhere classified - intractable back pain. - Bed requested for M PED. - Status is Inpatient Admission. mlc - Condition is Stable. - Problem is new. - Symptoms are unchanged. - Notes: follow up with ortho as discussed. Dr Jacobson and I feel your abdominal pain is referred pain from herniated disc Historical: - Allergies: No known drug Allergies; - Home Meds: 1. Ambien 10 mg Oral tab 1 tab once daily 2. melatonin 10 mg Oral tab nightly 3. Seroquel 200 mg Oral tab 1 tab nightly 4. [place] 5-325 mg Oral tab 2 tabs every 4 hours (Last dose: 07/26/2016) 5. citalopram 40 mg Oral tab 1 tab once daily 6. Senna Plus 8.6-50 mg oral tab 1 tabs twice a day - PMHx: Anxiety; Depression; PTSD; - PSHx: D & C; Tonsillectomy; Breast Augmentation; Cholecystectomy; under eyelid; - Social history: Smoking status: Patient states former smoker of tobacco. No barriers to communication noted, The patient speaks fluent Bulgarian. - Family history: Not pertinent. - : The pt / caregiver states he / she is not on anticoagulants. Home medication list is obtained from the patient. - Exposure Risk Screening:: None identified. 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 5 in. (165.10 cm) (R); Pain 10/; 04:28 Pulse 82 MON; Pulse Ox 98% ; pml 06:56 BP 109 / 55 (auto/); mlc 06:58 Pulse 72 MON; Pulse Ox 97% ; mlc 07:16 Pulse 74 MON; Pulse Ox 93% ; pml 07:16 BP 118 / 59 (auto/); pml 07:36 Pulse 74 MON; Pulse Ox 96% ; pml 07:36 BP 103 / 55 (auto/); pml 07:56 Pulse 76 MON; Pulse Ox 97% ; pml 07:56 BP 107 / 55 (auto/); pml 08:16 Pulse 78 MON; Pulse Ox 97% ; pml 08:16 BP 108 / 55 (auto/); pml 10:58 BP 117 / 64; Pulse 73; Resp 18; Pulse Ox 98% on R/A; Pain 9/10; pml 11:15 Pain 9/10; pml 04:27 Body Mass Index 28.95 (78.93 kg, 165.10 cm) cln MDM: 05:58 NS 0.9% 1000 ml IV at bolus once ordered. mm11 05:58 Ondansetron 4 mg IVP once ordered. mm11 05:58 -Blood Culture (Adults Only), peripheral from different site, or from device/port/PICC mm11 etc. if present ordered. 05:58 IV Saline Lock ordered. mm11 05:58 Undress patient appropriately for examination ordered. mm11 05:58 Dilaudid - HYDROmorphone 0.5 mg IVP every 30 minutes x3 ordered. mm11 05:59 NOTHING BY MOUTH+DIET ordered. EDMS 05:59 Amylase Ordered. EDMS 05:59 Basic Metabolic Profile Ordered. EDMS 05:59 CBC with Diff Ordered. EDMS 05:59 HCG,Serum Qualitative Ordered. EDMS 05:59 Lipase Ordered. EDMS 05:59 Liver Profile Ordered. EDMS 05:59 Urinalysis Ordered. EDMS 05:59 -Blood Culture Ordered. EDMS 05:59 Urine Culture Ordered. EDMS 06:07 -Blood Culture (Adults Only), peripheral from different site, or from device/port/PICC ml3 etc. if present complete. 06:08 BLOOD CULTURES Ordered. EDMS 07:53 Financial registration complete. lg 07:55 Basic Metabolic Profile Reviewed. mm11 07:55 CBC with Diff Reviewed. mm11 07:55 Liver Profile Reviewed. mm11 07:55 Amylase Reviewed. mm11 07:55 HCG,Serum Qualitative Reviewed. mm11 07:55 Lipase Reviewed. mm11 07:55 Urinalysis Reviewed. mm11 08:15 CT ABD & PELVIS: IV Contrast Only Ordered. EDMS 09:01 Consult PFS/PSA/Project Asst ordered. ml 09:02 BED REQUEST+ADM ordered. EDMS 09:28 PSA Outpatient Referrals was scanned into [employer] and attached to record. dsf 09:30 Consult PFS/PSA/Project Asst complete. rb 10:12 MRI Screening Tool - Place on chart, inform RN ordered. ml 10:13 -MRI-Spine,Thoracic without contrast Ordered. EDMS 10:16 MRI Screening Tool - Place on chart, inform RN complete. kpj 12:50 oxyCODONE-acetaminophen 5 mg-325 mg 2 tabs PO once ordered. ml 12:58 oxyCODONE-acetaminophen 5 mg-325 mg 2 tabs PO once ordered. pml 13:36 Ondansetron ODT Oral Disintegrating Tablet 4 mg PO once ordered. pml 13:57 BED REQUEST+ADM ordered. EDMS 13:58 REGULAR+DIET ordered. EDMS 14:14 ED course: pt refused to be discharged. i had discussed the diagnosis/plan/pain ml medication. she is refusing. dw dr carlisle - to admit. i strongly feel there is an element of diepression. both she and her interviewed - denies suicidal ideation/homicidal ideation. admits depression and poor coping skills. dr carlisle aware and will consult psych.mlg. 15:17 morphine 4 mg IVP once ordered. ml 15:29 Admission / Observation Status ordered. EDMS 15:29 REGULAR DIET ordered. EDMS 15:30 PHYSICAL THERAPY EVAL & TREAT ordered. EDMS 19:32 CBC WITH DIFFERENTIAL Ordered. EDMS 19:32 BASIC METABOLIC PROFILE Ordered. EDMS 19:32 MAGNESIUM LEVEL Ordered. EDMS 07/28 11:40 T-Sheet-- Draft Copy was scanned into [employer] and attached to record. gb Administered Medications: 07/27 06:58 Drug: NS 0.9% 1000 ml [sodium chloride 0.9 % intravenous solution] Route: IV; Rate: mlc bolus; Site: left wrist; 06:58 Drug: Ondansetron 4 mg [ondansetron HCl 2 mg/mL intravenous solution (2 mL)] Route: mlc IVP; Site: left wrist; 06:58 Drug: Dilaudid - HYDROmorphone 0.5 mg [hydromorphone 1 mg/mL injection syringe (0.5 mlc mL)] Route: IVP; Site: left wrist; 11:00 Drug: Dilaudid - HYDROmorphone 0.5 mg [hydromorphone 1 mg/mL injection syringe (0.5 pml mL)] Route: IVP; Site: left hand; 11:15 Follow up: Pain 9/10 Adult; Response: No significant change. pml 12:12 Drug: Dilaudid - HYDROmorphone 0.5 mg [hydromorphone 1 mg/mL injection syringe (0.5 pml mL)] Route: IVP; Site: left hand; 12:58 Drug: oxyCODONE-acetaminophen 2 tabs [oxycodone-acetaminophen 5 mg-325 mg tablet (2 pml tabs)] Route: PO; 13:36 Drug: Ondansetron ODT 4 mg [ondansetron 4 mg disintegrating tablet (1 tabs)] Route: PO; pml 16:15 Drug: morphine 4 mg [morphine 4 mg/mL intravenous cartridge (1 mL)] Route: IVP; Site: [facility] right antecubital; Signatures: Dispatcher [employer] EDMS Melina Gonzalez MD MD ml Jobson, Karen, RN RN [facility] Carolina Linder, PSA PSA rb Jossie Candelaria, Reg Reg gb Eder Jaffe, Reg Reg lg Janak Gill, [facility] ml3 Sumeet Chew, DO mm11 Debi Vigil RN RN dsf Quay, Paulina, RN RN [facility] Alejandra Gross RN RN [facility] [place] Brynn Adkins RN RN [id number] The chart was reviewed and I authenticate all verbal orders and agree with the evaluation and treatment provided.Attachments: 07/28 11:40 T-Sheet-- Draft Copy gb Chart Complete MTDD
--- NOTE | 2016-07-29 20:47 | EDDOCDS ---
Nurse's Notes [facility] Name: Spring Sample Age: 36 yrs Sex: Female : 1980 Arrival Date: 07/27/2016 Time: 04:20 Bed I8 / 16 Private MD: BJ Boss Diagnosis: Low back pain-small thoracic herniated disk; mood disturbance;Acute pain, not elsewhere classified-intractable back pain Presentation: 07/27 04:22 Presenting complaint: EMS states: Gallbladder removed on the 22 of July. pt reports mlc pain since then without relief. pain has gotten intolerable. pt reports she ran out of her prescribed norco tabs on the . Risk factors: the patient reports no vaginal bleeding. Adult Sepsis Screening: The patient does not have new or worsening altered mentation. Patient's respiratory rate is less than 22. Systolic blood pressure is greater than 100. Patient has a qSOFA score of 0- Negative Sepsis Screen. Suicide/Homicide risk assessment- the patient denies having any suicidal and/or homicidal ideations and does not present with any other emotional, behavioral or mental health complaints. Status: The patient is a dependent. Transition of care: patient was not received from another setting of care. 04:22 Acuity: BULMARO Level 3 mlc 04:22 Method Of Arrival: Ambulance mlc Triage Assessment: 04:30 General: Appears uncomfortable, Behavior is cooperative, crying. Pain: Location: back mlc and epigastric area Pain currently is 10 out of 10 on a pain scale. HIV screening NA for this visit Offered previously. The patient is triaged at the bedside. See Assessment in Nurses Notes section of ED record. Neurological: Level of Consciousness is awake, alert, Oriented to person, place, time. Respiratory: Airway is patent Respiratory effort is even, unlabored, Respiratory pattern is regular. GI: Abdomen is non- distended Reports diarrhea, nausea, vomiting. Derm: Skin is normal. BAT PERSON: 04:30 LMP 06/2016 mlc Historical: - Allergies: No known drug Allergies; - Home Meds: 1. Ambien 10 mg Oral tab 1 tab once daily 2. melatonin 10 mg Oral tab nightly 3. Seroquel 200 mg Oral tab 1 tab nightly 4. [place] 5-325 mg Oral tab 2 tabs every 4 hours (Last dose: 07/26/2016) 5. citalopram 40 mg Oral tab 1 tab once daily 6. Senna Plus 8.6-50 mg oral tab 1 tabs twice a day - PMHx: Anxiety; Depression; PTSD; - PSHx: D & C; Tonsillectomy; Breast Augmentation; Cholecystectomy; under eyelid; - Social history: Smoking status: Patient states former smoker of tobacco. No barriers to communication noted, The patient speaks fluent Senegalese. - Family history: Not pertinent. - : The pt / caregiver states he / she is not on anticoagulants. Home medication list is obtained from the patient. - Exposure Risk Screening:: None identified. Screenin:35 Screening information is obtained from the patient. Fall risk: No risks identified. mlc Assistance ADL's: requires no assistance with activities of daily living. Abuse/DV Screen: The patient / caregiver reports he/she is: not in a situation that causes fear, pain or injury. Nutritional screening: No deficits noted. Advance Directives: Currently, there is no health care proxy. There is no Power of Signal Engineer. home support is adequate. Assessment: 04:35 General: Appears uncomfortable, Behavior is cooperative, crying. Pain: Location: back mlc and epigastric area Pain currently is 10 out of 10 on a pain scale. Neurological: Level of Consciousness is awake, alert, Oriented to person, place, time. Respiratory: Airway is patent Respiratory effort is even, unlabored, Respiratory pattern is regular. GI: Abdomen is non- distended Bowel sounds present X 4 quads. Abd is soft X 4 quads Reports diarrhea, nausea, vomiting. Derm: Skin is normal, 5 incision sites noted, steri strips in place, no redness or swelling. no drainage noted. 05:40 Reassessment: Patient appears in no apparent distress at this time. Patient states mlc symptoms have not improved. 07:01 Reassessment: Patient appears in no apparent distress at this time. Patient states mlc symptoms have not improved. pt medicated per order. resp easy/unlabored. IV fluids infusing per order. 07:36 General: Appears in no apparent distress, comfortable, Behavior is appropriate for age, pml cooperative. Pain: Location: epigastric area Pain currently is 8 out of 10 on a pain scale. Neurological: Level of Consciousness is awake, alert, Oriented to person, place, time. Cardiovascular: Capillary refill < 3 seconds. Respiratory: Airway is patent Respiratory effort is even, unlabored. Derm: Skin is normal. 08:36 General: Pt to CT - tolerated without complaints. reports pain is unchanged, 8/10 - pml resps easy and unlabored, skin p/w/d . 09:25 General: PSA in to see patient. . pml 10:58 General: Appears in no apparent distress, Behavior is appropriate for age, cooperative. pml Pain: Location: epigastric area Pain currently is 9 out of 10 on a pain scale. Neurological: Level of Consciousness is awake, alert, Oriented to person, place, time. Cardiovascular: Capillary refill < 3 seconds. Respiratory: Airway is patent Respiratory effort is even, unlabored. GI: Abdomen is non- distended. Derm: Skin is normal. 12:04 General: resting on stretcher, resps easy and unlabored, skin p/w/d. reports pain 9/10. pml family at bedside. pt appears to only request pain medications when SO is at bedside. 12:58 General: continues to report pain 9/10. resps easy and unlabored, skin p/w/d. pml 13:06 General: First contact with pt. In to discharge pt. Pt states she is in excruciating ld5 pain and "you can't send me home against my will". Pt expressing concerns over wait time to see orthopaedic group and pain management. "I'm going to end up right back here like I am today. I can't deal with this pain." Primary RN and charge account clerk made aware of pt's concerns. 13:36 General: In to further discuss pts concerns. pt states she is unwilling to be pml discharged - states she does not want to be back here with pain at 0300. pt is upset that this telegraphic typewriter mechanic can not provider her with a definitive time frame for follow up appt and definitive care and treatment. pt expressed she was nauseated from pain and unable to keep fluids down. half drank coke at bedside. MD Dolan aware of pts nausea and medicated as indicated on emar. pt accusatory to this telegraphic typewriter mechanic stating we do not care about her pain and saying we removed her gal bladder 5 days ago because we mis diagnosed her and saying that we caused her to have an unnecessary surgery. Pt awaiting further discussion regarding discharge vs admission with MD Dolan who is occupied with critical patients. Pt aware of wait times. . 14:48 General: ambulatory to restroom independently. gait steady without distress. . pml 15:15 General: MD Pizarro in to see patient. pml Social Work Consult: 09:32 Social Work Note: Met with Pt and at bedside per request Dr. Dolan. Pt was rb A&Ox3, calm and cooperative, denied SI/HI, denied AH/ VH. Pt reported in a lot of pain , denies being depressed, but frustrated she cannot get comfortable. Pt reported lack of sleep do to pain also. Pt's PCP is Dr. Oconnor \\T\\ Karyn. Referrals given. No further interventions given at this time. Vital Signs: 04:24 BP 132 / 68 (auto/); pml 04:27 BP 132 / 68 RA Sitting (auto/); Pulse 81 MON; Resp 20 S; Temp 98.0(O); Pulse Ox 98% on cln R/A; Weight 78.93 kg (R); Height 5 ft. 5 in. (165.10 cm) (R); Pain 10/10; 04:28 Pulse 82 MON; Pulse Ox 98% ; pml 06:56 BP 109 / 55 (auto/); mlc 06:58 Pulse 72 MON; Pulse Ox 97% ; mlc 07:16 Pulse 74 MON; Pulse Ox 93% ; pml 07:16 BP 118 / 59 (auto/); pml 07:36 Pulse 74 MON; Pulse Ox 96% ; pml 07:36 BP 103 / 55 (auto/); pml 07:56 Pulse 76 MON; Pulse Ox 97% ; pml 07:56 BP 107 / 55 (auto/); pml 08:16 Pulse 78 MON; Pulse Ox 97% ; pml 08:16 BP 108 / 55 (auto/); pml 10:58 BP 117 / 64; Pulse 73; Resp 18; Pulse Ox 98% on R/A; Pain 9/10; pml 11:15 Pain 9/10; pml 04:27 Body Mass Index 28.95 (78.93 kg, 165.10 cm) cln Vitals: 04:30 Log In Time N/A - ambulance arrival. [facility] [place] ED Course: 04:21 Patient visited by Janak Gill, [employer] Machine Assembler. ml3 04:21 Karyn [facility] [place] [facility] is Private Physician. ml3 04:21 Gross,Alejandra,RN is Primary Nurse. ml3 04:21 Patient moved to Waiting ml3 04:21 Patient moved to 10 ml3 04:27 Triage Initiated mlc 04:28 Patient visited by Geena Alfaro PCA. cln 04:28 Pt greeted and oriented to ED. Patient advised of names of staff involved in care, cln location of call griffith, wait times and NPO status. Patient has correct armband on for positive identification. Placed in gown. Bed in low position. Call light in reach. Side rails up X 1. 04:38 Patient visited by Alejandra Gross RN. mlc 05:42 Sumeet Chew DO is Attending Physician. mm11 05:42 Patient visited by Sumeet Chew DO. mm11 05:56 Patient visited by Sumeet Chew DO. mm11 06:49 BLOOD CULTURES Sent. mlc 06:50 -Blood Culture Sent. mlc 06:50 Amylase Sent. mlc 06:50 Liver Profile Sent. mlc 06:50 Lipase Sent. mlc 06:50 HCG,Serum Qualitative Sent. mlc 06:50 CBC with Diff Sent. mlc 06:50 Basic Metabolic Profile Sent. mlc 06:58 The patient / caregiver is instructed regarding the plan of care and ED course. mlc 07:02 Pulse ox on. NIBP on. mlc 07:02 Inserted saline lock: 20 gauge in left hand and blood collected. The patient tolerated mlc the procedure well. 07:03 Patient visited by Alejandra Gross RN. mlc 07:29 Yue Tenorio RN is Primary Nurse. pml 07:37 Patient visited by Yue Tenorio RN. pml 08:14 Patient visited by Sumeet Chew DO. mm11 08:30 Attending Physician role handed off by Sumeet Chew DO ml 08:30 Melina Gonzalez MD is Attending Physician. ml 08:37 Patient visited by Yue Tenorio RN. pml 09:25 Patient visited by Yue Tenorio RN. pml 09:28 PSA Outpatient Referrals was scanned into [employer] and attached to record. dsf 10:12 CT ABD & PELVIS: IV Contrast Only Returned. EDMS 10:26 Patient visited by Tona Strickland PCA. ct3 11:08 Patient moved to MRI kpj 11:45 Primary Nurse role handed off by Alejandra Gross,DINESH ac 12:08 Patient visited by Yue Tenorio,DINESH. pml 12:42 Patient moved to 10 ar3 12:51 Karyn [facility] [place] is Referral Physician. ml 12:[facility]. ml 12:58 Patient visited by Yue Tenorio,RN. pml 13:09 Patient visited by Spring Ahuja,RN. ld5 13:39 Patient visited by Yue Tenorio,DINESH. pml 14:12 Maru Pizarro is Hospitalizing Provider. ml 14:50 Patient visited by Yue Tenorio,DINESH. pml 14:52 Patient visited by Doreen Larry. sew 14:52 Diet: Patient given regular meal. sew 15:12 -MRI-Spine,Thoracic without contrast Returned. EDMS 15:15 Patient visited by Yue Tenorio,DINESH. pml 15:20 Patient moved to I8 / 16 [facility] 16:15 Discontinued lock intact, bleeding controlled, pressure dressing applied, left hand due kpj to pt stating iv site painful with flush. Inserted saline lock: 20 gauge in right antecubital area The patient tolerated the procedure well. 19:04 Patient visited by Jerome Jonas PCA. kb5 19:45 No procedures done that require assistance. [facility] [place] 07/28 11:40 T-Sheet-- Draft Copy was scanned into Neurop[employer] and attached to record. gb Administered Medications: 07/27 06:58 Drug: NS 0.9% 1000 ml [sodium chloride 0.9 % intravenous solution] Route: IV; Rate: mlc bolus; Site: left wrist; 06:58 Drug: Ondansetron 4 mg [ondansetron HCl 2 mg/mL intravenous solution (2 mL)] Route: mlc IVP; Site: left wrist; 06:58 Drug: Dilaudid - HYDROmorphone 0.5 mg [hydromorphone 1 mg/mL injection syringe (0.5 mlc mL)] Route: IVP; Site: left wrist; 11:00 Drug: Dilaudid - HYDROmorphone 0.5 mg [hydromorphone 1 mg/mL injection syringe (0.5 pml mL)] Route: IVP; Site: left hand; 11:15 Follow up: Pain 9/10 Adult; Response: No significant change. pml 12:12 Drug: Dilaudid - HYDROmorphone 0.5 mg [hydromorphone 1 mg/mL injection syringe (0.5 pml mL)] Route: IVP; Site: left hand; 12:58 Drug: oxyCODONE-acetaminophen 2 tabs [oxycodone-acetaminophen 5 mg-325 mg tablet (2 pml tabs)] Route: PO; 13:36 Drug: Ondansetron ODT 4 mg [ondansetron 4 mg disintegrating tablet (1 tabs)] Route: PO; pml 16:15 Drug: morphine 4 mg [morphine 4 mg/mL intravenous cartridge (1 mL)] Route: IVP; Site: [facility] right antecubital; Order Results: Lab Order: Amylase; SPEC'M 07/27/16 06:30 Test: AMYLASE; Value: 30; Range: 25-115; Units: U/L; Status: F Lab Order: Basic Metabolic Profile; SPEC'M 07/27/16 06:30 Test: GLUCOSE, FASTING; Value: 87; Range: 70-105; Units: MG/DL; Status: F Test: BLOOD UREA NITROGEN; Value: 10; Range: 7-18; Units: MG/DL; Status: F Test: CREATININE FOR GFR; Value: 0.74; Range: 0.55-1.02; Units: MG/DL; Status: F Test: SODIUM LEVEL; Range: 136-145; Units: MEQ/L; Status: I Test: POTASSIUM SERUM; Range: 3.5-5.1; Units: MEQ/L; Status: I Test: CHLORIDE LEVEL; Range: 98-107; Units: MEQ/L; Status: I Test: CARBON DIOXIDE LEVEL; Range: 21-32; Units: MEQ/L; Status: I Test: ANION GAP; Range: 8-16; Units: MEQ/L; Status: I Test: CALCIUM LEVEL; Range: 8.5-10.1; Units: MG/DL; Status: I Test: GLOMERULAR FILTRATION RATE; Value: > 60.0; Range: >60; Status: F Test: SODIUM LEVEL; Value: 143; Range: 136-145; Units: MEQ/L; Status: F Test: POTASSIUM SERUM; Value: 3.6; Range: 3.5-5.1; Units: MEQ/L; Status: F Test: CHLORIDE LEVEL; Value: 111; Range: 98-107; Abnormal: Above high normal; Units: MEQ/L; Status: F Test: CARBON DIOXIDE LEVEL; Value: 22; Range: 21-32; Units: MEQ/L; Status: F Test: ANION GAP; Value: 10; Range: 8-16; Units: MEQ/L; Status: F Test: CALCIUM LEVEL; Value: 8.8; Range: 8.5-10.1; Units: MG/DL; Status: F Test Note: ; Units are mL/min/1.73 m2 Chronic Kidney Disease Staging per NKF: Stage I & II GFR >=60 Normal to Mildly Decreased Stage III GFR 30-59 Moderately Decreased Stage IV GFR 15-29 Severely Decreased Stage V GFR <15 Very Little GFR Left ESRD GFR <15 on RADIATOR MECHANIC Lab Order: CBC with Diff; SPEC'M 07/27/16 06:30 Test: WHITE BLOOD COUNT; Value: 12.6; Range: 4.0-10.0; Abnormal: Above high normal; Units: K/mm3; Status: F Test: RED BLOOD COUNT; Value: 3.65; Range: 4.00-5.40; Abnormal: Below low normal; Units: M/mm3; Status: F Test: HEMOGLOBIN; Value: 11.0; Range: 12.0-16.0; Abnormal: Below low normal; Units: g/dl; Status: F Test: HEMATOCRIT; Value: 34.4; Range: 36.0-47.0; Abnormal: Below low normal; Units: %; Status: F Test: MEAN CORPUSCULAR VOLUME; Value: 94.2; Range: 80.0-96.0; Units: fl; Status: F Test: MEAN CORPUSCULAR HEMOGLOBIN; Value: 30.1; Range: 27.0-33.0; Units: pg; Status: F Test: MEAN CORPUSCULAR HGB CONC; Value: 32.0; Range: 32.0-36.5; Units: g/dl; Status: F Test: RED CELL DISTRIBUTION WIDTH; Value: 13.8; Range: 11.5-14.5; Units: %; Status: F Test: PLATELET COUNT, AUTOMATED; Value: 800; Range: 150-450; Abnormal: Above high normal; Units: k/mm3; Status: F Test: NEUTROPHILS %; Value: 65.9; Range: 36.0-66.0; Units: %; Status: F Test: LYMPH %; Value: 22.8; Range: 24.0-44.0; Abnormal: Below low normal; Units: %; Status: F Test: MONO %; Value: 5.9; Range: 0.0-5.0; Abnormal: Above high normal; Units: %; Status: F Test: EOS %; Value: 2.2; Range: 0.0-3.0; Units: %; Status: F Test: BASO %; Value: 0.5; Range: 0.0-1.0; Units: %; Status: F Test: LARGE UNSTAINED CELL %; Value: 2.7; Range: 0.0-4.0; Units: %; Status: F Test: NEUTROPHILS #; Value: 8.3; Range: 1.8-7.7; Abnormal: Above high normal; Units: K/mm3; Status: F Test: LYMPH #; Value: 2.9; Range: 1.5-4.5; Units: K/mm3; Status: F Test: MONO #; Value: 0.7; Range: 0.0-0.8; Units: K/mm3; Status: F Test: EOS #; Value: 0.3; Range: 0.0-0.50; Units: K/mm3; Status: F Test: BASO #; Value: 0.1; Range: 0.0-0.2; Units: K/mm3; Status: F Test: LARGE UNSTAINED CELL #; Value: 0.3; Range: 0.0-0.4; Units: K/mm3; Status: F Lab Order: HCG,Serum Qualitative; SPEC'M 07/27/16 06:30 Test: HCG, SERUM QUALITATIVE; Value: NEGATIVE; Range: NEGATIVE; Status: F Lab Order: Lipase; SPEC'M 07/27/16 06:30 Test: LIPASE; Value: 90; Range: 73-393; Units: U/L; Status: F Lab Order: Liver Profile; SPEC'M 07/27/16 06:30 Test: AST/SGOT; Value: 13; Range: 15-37; Abnormal: Below low normal; Units: U/L; Status: F Test: ALT/SGPT; Value: 17; Range: 12-78; Units: U/L; Status: F Test: ALKALINE PHOSPHATASE; Value: 69; Range: 45-117; Units: U/L; Status: F Test: BILIRUBIN,TOTAL; Value: 0.2; Range: 0.2-1.0; Units: MG/DL; Status: F Test: BILIRUBIN,DIRECT; Value: < 0.1; Range: 0.0-0.2; Units: MG/DL; Status: F Test: TOTAL PROTEIN; Value: 6.4; Range: 6.4-8.2; Units: GM/DL; Status: F Test: ALBUMIN; Value: 2.7; Range: 3.2-5.2; Abnormal: Below low normal; Units: GM/DL; Status: F Test: ALBUMIN/GLOBULIN RATIO; Value: 0.73; Range: 1.00-1.93; Abnormal: Below low normal; Status: F Lab Order: Urinalysis; SPEC'M 07/27/16 06:31 Test: APPEARANCE, URINE; Value: CLEAR; Range: CLEAR; Status: F Test: COLOR, URINE; Value: YELLOW; Range: YELLOW; Status: F Test: PH,URINE; Value: 7.0; Range: 5.0-9.0; Units: UNITS; Status: F Test: SPECIFIC GRAVITY URINE AUTO; Value: 1.012; Range: 1.002-1.035; Status: F Test: PROTEIN, URINE AUTO; Value: NEGATIVE; Range: NEGATIVE; Units: mg/dL; Status: F Test: GLUCOSE, URINE (UA) AUTO; Value: NEGATIVE; Range: NEGATIVE; Units: mg/dL; Status: F Test: KETONE, URINE AUTO; Value: NEGATIVE; Range: NEGATIVE; Units: mg/dL; Status: F Test: UROBILINOGEN, URINE AUTO; Value: 0.2; Range: 0.0-2.0; Units: mg/dL; Status: F Test: BILIRUBIN, URINE AUTO; Value: NEGATIVE; Range: NEGATIVE; Status: F Test: NITRITE, URINE AUTO; Value: NEGATIVE; Range: NEGATIVE; Status: F Test: LEUKOCYTE ESTERASE, URINE AUTO; Value: NEGATIVE; Range: NEGATIVE; Status: F Test: BLOOD, URINE BLOOD; Value: NEGATIVE; Range: NEGATIVE; Status: F Test: WBC, URINE AUTO; Value: 2; Range: 0-3; Units: /HPF; Status: F Test: RBC, URINE AUTO; Value: 2; Range: 0-3; Units: /HPF; Status: F Test: BACTERIA, URINE AUTO; Value: NEGATIVE; Range: NEGATIVE; Status: F Test: SQUAMOUS EPITHELIAL CELL UR AU; Value: 1; Range: 0-6; Units: /HPF; Status: F Test: MUCUS, URINE; Value: SMALL; Range: NEGATIVE; Status: F Test: HYALINE CAST, URINE AUTO; Value: 0; Range: 0-1; Units: /LPF; Status: F Radiology Order: CT ABD & PELVIS: IV Contrast Only Test: CT ABD & PELVIS: IV Contrast Only REASON FOR EXAMINATION: post op;Abd. Pain - Generalized, Nn-focal Exam; CT scan of the abdomen and pelvis with IV but without oral contrast:; ; History: Postoperative abdominal pain. Comparison CT study is from July 152015. The patient has undergone cholecystectomy in the interval.; ; CT contrast dose: 100 mL of Isovue 370 is administered intravenously.; ; CT findings: Digital preliminary fabric cutter radiograph demonstrates clips in the; right upper quadrant of the abdomen and tubal ligation bands in the pelvis.; There are one or two loops of air-filled borderline caliber small bowel in the; left mid abdomen. The lung bases are clear. Bilateral breast augmentation; implants are seen in place. The liver and the spleen remain normal in size and; homogeneous in texture. No adrenal lesion is seen. There is some postoperative; edema or fluid in the gallbladder fossa but no abscess or defined fluid; collection is seen. A normal appendix is seen in the pelvis. There is no; evidence of free intraperitoneal air. No uterine or ovarian abnormality is seen.; Small and large intestinal bowel loops are unremarkable on axial CT images.; There is some small and large bowel gas.; ; The kidneys enhance symmetrically and are morphologically intact. No bladder; abnormalities are seen. No bony abnormality is noted. No abdominal wall defect; or abdominal wall hematoma is seen. There are some mild postoperative changes in; the anterior abdominal wall suggesting a recent laparoscopic procedure.; ; Impression:; ; No complication identified. Minimal fluid adjacent to the clips in the; gallbladder post cholecystectomy. No abscess, biloma, free air or evidence of; significant ileus or obstruction seen.; ; ; Signed by; Jose Onofre MD 07/27/2016 10:23 A; Radiology Order: -MRI-Spine,Thoracic without contrast Test: -MRI-Spine,Thoracic without contrast REASON FOR EXAMINATION: rule out herniated disk; MRI thoracic spine without contrast:; ; History: Chronic interscapular pain extending down the back. No recent injury.; Five days post cholecystectomy.; ; Technique: Sagittal and axial T1 and T2-weighted scans are acquired in the usual; fashion with and without fat saturation. Sequences include spin echo, turbo; spin-echo, and STIR imaging sequences.; ; MRI findings: Cortical and medullary bone signal intensity are normal.; Alignment is normal. Disc spaces are maintained. Thoracic cord is normal in; coarse, caliber and signal intensity on T1 and T2-weighted scans. No extraspinal; abnormality is seen. No neural foraminal lesion is appreciated.; ; There is a small focal disc protrusion at the T8-9 disc margin centrally effacing; the ventral subarachnoid space but not contacting or compressing the thoracic; cord. No other thoracic disc protrusion is seen. No cord lesion is seen. No; other cord compression is seen. Exam is otherwise unremarkable.; ; Impression:; ; Small central disc protrusion at T8-9 effacing the ventral subarachnoid space but; not contacting or compressing the thoracic cord. Otherwise negative.; ; ; Signed by; Jose Onofre MD 07/27/2016 03:39 P; Outcome: 12:52 Discharge ordered by Provider. ml 14:14 Decision to Hospitalize by Provider. ml 19:45 Discharge Assessment: Patient awake, alert and oriented x 3. No cognitive and/or mlc functional deficits noted. Patient verbalized understanding of disposition instructions. patient administered narcotics - yes. Patient was admitted to the hospital or transferred to another facility. The following High Risk Discharge criteria are identified: None. Admitted to Pediatrics via wheelchair. Condition: stable. CT Study completed. Property :Personal belongings accompany Pt. 19:46 Patient left the ED. [facility] [place] Signatures: Dispatcher [employer] EDMS Melina Gonzalez MD MD ml Jobson, Karen, RN RN kpj Baxter, Renee, PSA PSA rb Nimesh Walters, PSA PSA Jossie Dorado, Reg Reg Janak Barkley, [employer] Machine Assembler Unit ml3 Sumi, Jerome, CHILD WELFARE ASSISTANT CHILD WELFARE ASSISTANT kb5 Sumeet Chew, DO DO mm11 Ida Berrios, CHILD WELFARE ASSISTANT CHILD WELFARE ASSISTANT ar3 Spring Ahuja,DINESH RN ld5 Tona Strickland, CHILD WELFARE ASSISTANT CHILD WELFARE ASSISTANT ct3 Debi Vigil,Yue Moore RN, RN RN pml Wallace, Alejandra Luque RN RN mlc Nichols, Geena, CHILD WELFARE ASSISTANT CHILD WELFARE ASSISTANT cln Chart Complete MTDD
--- NOTE | 2016-07-30 14:50 | IPNPDOC ---
Assessment/Plan Date Seen The patient was seen on 07/28/16. Problems Problems: (1) Intractable back pain Status: Acute Problem Text: * on going back pain, will consult pain management * continue current medication (2) Acute cholecystitis Status: Acute Problem Text: recent lap robert pod #6 pt was evaluated by Dr Jacobson in ED Plan / VTE VTE Prophylaxis Ordered?: Yes Subjective Review of Systems CC/HPI The patient is a 36-year-old female admitted with a reason for visit of Intractable Back Pain. Events since last encounter pt seen and examined, complaining of back pain, states has been getting worse over the past 3 months, she complains of radiating pain down her legs as well, denies any urinary incontinence Objective Physical Examination General Exam: Positive: Alert, Cooperative, No Acute Distress Eye Exam: Positive: PERRLA Chest Exam: Positive: Clear to auscultation, Normal air movement Abdomen Exam: Positive: Normal bowel sounds, Soft, Negative: Hepatospenomegaly, Tenderness Extremity Exam: Positive: Normal pulses, Negative: Clubbing, Cyanosis, Edema Vital Signs/I&O Vital Signs Date Time Temp Pulse Resp B/P Pulse Ox O2 Delivery O2 Flow Rate FiO2 07/28/16 21:23 16 07/28/16 20:00 97.3 68 129/63 99 Room Air I&O- Last 24 Hours up to 6 AM 07/28/16 06:00 Intake Total 120 ml Output Total 0 ml Balance 120 ml Laboratory Data Labs 24H Laboratory Tests 2 07/28/16 06:41: Anion Gap 10, White Blood Count 7.5, Red Blood Count 3.45L, Hemoglobin 10.3L, Hematocrit 32.2L, Mean Corpuscular Volume 93.6, Mean Corpuscular Hemoglobin 30.0 , Mean Corpuscular Hemoglobin Concent 32.1, Red Cell Distribution Width 13.7, Platelet Count 622H, Neutrophils (%) (Auto) 43.3, Lymphocytes (%) (Auto) 38.5, Monocytes (%) (Auto) 8.2H, Eosinophils (%) (Auto) 3.4H, Basophils (%) (Auto) 0.7 , Neutrophils # (Auto) 3.2, Lymphocytes # (Auto) 2.9, Monocytes # (Auto) 0.6, Eosinophils # (Auto) 0.3, Basophils # (Auto) 0.0, Blood Urea Nitrogen 7, Creatinine 0.54L, Sodium Level 144, Potassium Level 3.4L, Chloride Level 110H, Carbon Dioxide Level 24, Calcium Level 8.3L, Glomerular Filtration Rate > 60.0, Large Unclassified Cells # 0.4, Large Unclassified Cells % 5.9H, Magnesium Level 2.1 CBC/BMP Laboratory Tests 07/28/16 06:41 Calcium Level 8.3 L, Red Blood Count 3.45 L, Mean Corpuscular Volume 93.6, Mean Corpuscular Hemoglobin 30.0, Mean Corpuscular Hemoglobin Concent 32.1, Red Cell Distribution Width 13.7, Neutrophils (%) (Auto) 43.3, Lymphocytes (%) (Auto) 38.5, Monocytes (%) (Auto) 8.2 H, Eosinophils (%) (Auto) 3.4 H, Basophils (%) ( Auto) 0.7, Neutrophils # (Auto) 3.2, Lymphocytes # (Auto) 2.9, Monocytes # (Auto ) 0.6, Eosinophils # (Auto) 0.3, Basophils # (Auto) 0.0 Microbiology Microbiology 07/27/16 Blood Culture - Preliminary, Resulted No growth after 24 hours . All specim... 07/27/16 Blood Culture - Preliminary, Resulted No growth after 24 hours . All specim... 07/27/16 Urine Culture - Final, Complete PATTIE BATES DO Jul 28, 2016 22:49
== END 2016-07-29 14:55 | disposition home or self-care (01) ==
LOC: M ED 04:20 → M ED INP 15:22 → M PED 19:50 → M RR INP 07-29 09:32 → M PED 07-29 09:41
PROVIDERS: ADMIT Hospitalist; ATTEND Internal Medicine
DX: M54.6 Pain in thoracic spine (principal); F43.10 Post-traumatic stress disorder, unspecified; F41.9 Anxiety disorder, unspecified; Z79.899 Other long term (current) drug therapy
CPT/HCPCS: 36415; 72146; 74177; 80048; 80076; 81001; 82150; 83690; 83735; 84703; 85025; 87040; 87086; 96376; 99285; J1170; J2405; J3301; Q9967

== ENCOUNTER 2016-07-31 12:57 | Observation (INO) | payer OTHER ==
[~2016-07-31] VITALS: Ht 165.1 cm; Wt 74.5 kg
[~2016-07-31 12:57] MED LIST changes: +HYDR-3713 PO; -HYDR1TAB97 PO; +PERCOCET PO
[2016-07-31] MEDS ORDERED: KETOROLAC 30 MG/ML VIAL (J1885) As Ordered ONE (13:37)
[2016-07-31] MEDS ORDERED: ONDANSETRON 4MG/2ML VIAL (J2405) As Ordered ONE ×2 (13:37→20:49)
[2016-07-31 13:50] LABS: BASO % 0.3 % (0.0-1.0); EOS # 0.1 K/mm3 (0.0-0.50); LARGE UNSTAINED CELL # 0.2 K/mm3 (0.0-0.4); LARGE UNSTAINED CELL % 1.5 % (0.0-4.0); LYMPH # 1.8 K/mm3 (1.5-4.5); LYMPH % 13.8 % (24.0-44.0); MEAN CORPUSCULAR HEMOGLOBIN 29.5 pg (27.0-33.0); MEAN CORPUSCULAR HGB CONC 31.4 g/dl (32.0-36.5); MEAN CORPUSCULAR VOLUME 93.9 fl (80.0-96.0); MONO # 0.6 K/mm3 (0.0-0.8); MONO % 4.6 % (0.0-5.0); NEUTROPHILS # 10.5 K/mm3 (1.8-7.7); NEUTROPHILS % 78.9 % (36.0-66.0); PLATELET COUNT, AUTOMATED 608 k/mm3 (150-450); RED CELL DISTRIBUTION WIDTH 13.4 % (11.5-14.5); WHITE BLOOD COUNT 13.3 K/mm3 (4.0-10.0)
[2016-07-31 14:23] LABS: ALBUMIN 3.1 GM/DL (3.2-5.2); ALBUMIN/GLOBULIN RATIO 0.89 (1.00-1.93); ALKALINE PHOSPHATASE 68 U/L (45-117); ALT/SGPT 18 U/L (12-78); ANION GAP 10 MEQ/L (8-16); AST/SGOT 29 U/L (15-37); BILIRUBIN,DIRECT < 0.1 MG/DL (0.0-0.2); BILIRUBIN,TOTAL 0.5 MG/DL (0.2-1.0); BLOOD UREA NITROGEN 25 MG/DL (7-18); CALCIUM LEVEL 8.6 MG/DL (8.5-10.1); CARBON DIOXIDE LEVEL 23 MEQ/L (21-32); CHLORIDE LEVEL 106 MEQ/L (98-107); CREATININE FOR GFR 0.61 MG/DL (0.55-1.02); GLOMERULAR FILTRATION RATE > 60.0 (>60); GLUCOSE, FASTING 85 MG/DL (70-105); SODIUM LEVEL 139 MEQ/L (136-145); TOTAL PROTEIN 6.6 GM/DL (6.4-8.2)
--- NOTE | 2016-07-31 14:23 | REP ---
Clinical: Acute abdominal pain. Technique: Upright view of the chest with supine and upright views of the abdomen and pelvis. Findings: Frontal upright view of the chest demonstrates no acute cardiopulmonary process or free air below the diaphragm to suspect pneumoperitoneum. Supine and upright views of the abdomen and pelvis demonstrate nonspecific bowel gas pattern without obstruction or perforation. No organomegaly. No abnormal calcifications. Skeletal structures normal for age. Impression: Nonspecific bowel gas pattern. Signed by Yao Ruiz MD 07/31/2016 02:14 P
[2016-07-31] MEDS ORDERED: GI COCKTAIL 50ML BTL(HYOSCYAMINE/MAALOX/LIDOCAINE VISCOUS)(1:3:1) As Ordered ONE (15:04)
[2016-07-31] MEDS ORDERED: METOCLOPRAMIDE INJ 10MG/2ML VIAL (J2765) As Ordered ONE ×2 (15:04→16:50)
--- NOTE | 2016-07-31 17:51 | REP ---
Clinical: Pain at the site of prior laparoscopic cholecystectomy trocar site. Technique: Real time pompa scale and color evaluation using linear high frequency transducer. Findings: Directed ultrasound examination at the site of tenderness in the midline epigastrium demonstrates what appears to be a fat filled tract which may also contain small amount of complex fluid. Color evaluation demonstrates no associated vascularity and no evidence for drainable collection/abscess. No definite hernia. Impression: Small amount of fat and possible mixed complex fluid at the site of trocar from prior laparoscopic cholecystectomy. Signed by Yao Ruiz MD 07/31/2016 05:42 P
[2016-07-31] MEDS ORDERED: ACETAMINOPHEN TAB 650MG DOSE (2X325MG) PO PRN (18:30)
[2016-07-31] MEDS ORDERED: SENN8.6T54 PO (18:35)
[2016-07-31] MEDS ORDERED: MORPHINE 2 MG/ML 1ML SYRINGE As Ordered ONE ×2 (18:46→21:33)
--- NOTE | 2016-07-31 21:44 | EDDOCDS ---
Nurse's Notes [facility] Name: Spring Sample Age: 36 yrs Sex: Female : 1980 Arrival Date: 07/31/2016 Time: 12:57 Bed I7 / 29 Private MD: Diagnosis: Upper abdominal pain, unspecified;Hematemesis Presentation: 07/31 13:00 Presenting complaint: Patient states: abdominal pain all over stomach for over 1 week. kr3 Recent admission for abdominal and back pain. Risk factors: the patient reports no vaginal bleeding. Adult Sepsis Screening: The patient does not have new or worsening altered mentation. Patient's respiratory rate is less than 22. Systolic blood pressure is greater than 100. Patient has a qSOFA score of 0- Negative Sepsis Screen. Suicide/Homicide risk assessment- the patient denies having any suicidal and/or homicidal ideations and does not present with any other emotional, behavioral or mental health complaints. Status: The patient is a dependent. Transition of care: patient was not received from another setting of care. 13:00 Method Of Arrival: Ambulance kr3 13:00 Acuity: BULMARO Level 3 kr3 Triage Assessment: 13:04 General: Appears distressed, Behavior is cooperative, crying. Pain: Location: abdomen kr3 Pain currently is 10 out of 10 on a pain scale. HIV screening NA for this visit Offered previously. The patient is triaged at the bedside. See Assessment in Nurses Notes section of ED record. Neurological: Level of Consciousness is awake, alert. Respiratory: Respiratory effort is even, unlabored. GI: Abdomen is obese, Abd is soft X 4 quads Abd is tender to palpation X 4 quads. Reports nausea. GI: Last BM was July 31, 2016. at 03:30. Reports blood in stool today. : Reports voiding small amounts Denies discharge, vaginal bleeding. Derm: Skin is normal. 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 Ambien 10 mg Oral tab 1 tab once daily (Last dose: 07/30/2016) 2. citalopram 40 mg Oral tab 1 tab once daily (Last dose: 07/30/2016) 3. melatonin 10 mg Oral tab nightly (Last dose: Unknown) 4. Seroquel 200 mg Oral tab 1 tab nightly (Last dose: Unknown) 5. [place] 5-325 mg Oral tab 2 tabs every 4 hours ran out 6. Senna Plus 8.6-50 mg oral tab 1 tabs twice a day (Last dose: 07/30/2016) 7. Percocet Unknown Oral every 4 hours ran out 07/30/16 - PMHx: Anxiety; Depression; PTSD; - PSHx: Cholecystectomy; - Social history: Smoking status: Patient states former smoker of tobacco. No barriers to communication noted, The patient speaks fluent Serbian. - Family history: Not pertinent. - : The pt / caregiver states he / she is not on anticoagulants. Home medication list is obtained from the patient, [employer] import data. - Exposure Risk Screening:: None identified. Screenin:26 Screening information is obtained from the patient. Fall risk: No risks identified. kr3 Assistance ADL's: requires no assistance with activities of daily living. Abuse/DV Screen: The patient / caregiver reports he/she is: not in a situation that causes fear, pain or injury. Nutritional screening: No deficits noted. Advance Directives: Currently, there is no health care proxy. home support is adequate. 20:41 Primary language is Serbian. ajs Assessment: 13:28 Reassessment: in room and patient calmer. Reports has had nausea for over 3 kr3 weeks and has lost 10 pounds. 14:25 Reassessment: Patient appears in no apparent distress at this time. resting on kr3 stretcher, and child in room. Pain: Location: abdomen Pain currently is 8 out of 10 on a pain scale. 14:45 Reassessment: reports pain and nausea are returning, beginning to cry, provider aware. kr3 15:13 General: pt crying hysterically stating we don't know what we are doing. pt requesting dsf pain medication and nausea medication. pt informed Dr. ferris wanted her to try the Reglan and GI cocktail. Pt states she is going to cause she can not keep fluids or food down. Pt was informed lets try the Reglan then if the nausea is better to try the GI cocktail. Pt states "I'm not drinking that shit" Pt states that the staff here treats her like shit and she has been here four times and they do not know what's wrong with her . 15:20 General: pt refusing to straighten arm so Reglan can infuse. pt states she will dsf straighten her arm after the doctor comes in. 15:31 General: this video game script writer went in to ask pt to straighten arm so the Reglan could infuse. pt dsf states "no not until my doctor comes in" Pt asked when the doctor would be in. Pt informed around 4 PM. Pt states "the last nurse told me an hour 15 min ago you are all liars get out of my room" PFS Carolina Linder informed . 16:41 Reassessment: Dr Gramajo here to evaluate patient. kr3 17:18 General: Pt took one sip of the GI cocktail and states she can not drink it. Dr. ferris dsf present in the room and told pt what the plan of care was. pt awaiting to go to ultrasound . 18:21 Reassessment: vomited large amount, Gastroccult was positive and provider notified and kr3 Dr Ferris notified. Patient informed that admission was pending. 18:49 Reassessment: Patient appears in no apparent distress at this time. pain 10/10 with kr3 nausea. PAtient was instructed of NPO status and water was taken away. 19:49 General: Appears in no apparent distress, Behavior is crying. Pain: Location: abdomen. dsf Neurological: Level of Consciousness is awake, alert. Cardiovascular: No deficits noted. Respiratory: No deficits noted. GI: Reports epigastric pain, lower abdominal pain, upper abd pain, nausea. Derm: Skin is pink, warm & dry. 21:38 Adult Sepsis Screening: The patient does not have new or worsening altered mentation. dsf Patient's respiratory rate is less than 22. Systolic blood pressure is greater than 100. Patient has a qSOFA score of 0- Negative Sepsis Screen. General: Appears in no apparent distress, Behavior is tearful. Pain: Location: abdomen Pain currently is 9 out of 10 on a pain scale. Quality of pain is described as sharp. Neurological: Level of Consciousness is awake, alert, Oriented to person, place, time. Cardiovascular: Capillary refill < 3 seconds Heart tones S1 S2 present. Respiratory: Airway is patent Respiratory effort is even, unlabored, Respiratory pattern is regular, symmetrical, Breath sounds are clear bilaterally. GI: Abdomen is non- distended Bowel sounds hyperactive in right upper quadrant, left upper quadrant, right lower quadrant and left lower quadrant Abd is soft X 4 quads Abd is tender to palpation in epigastric area, right upper quadrant, left upper quadrant, right lower quadrant and left lower quadrant Reports epigastric pain, lower abdominal pain, upper abd pain, nausea. Derm: Skin is pink, warm & dry. Vital Signs: 13:14 BP 106 / 55; Pulse 86; Resp 16; Temp 98.3(O); Pulse Ox 100% ; Weight 74.84 kg (R); dsf Height 5 ft. 5 in. (165.10 cm) (R); Pain 10/10; 14:25 Pain 8/10; kr3 18:43 BP 98 / 59; Pulse 105; Resp 18; Temp 96.9; Pulse Ox 99% ; Pain 10/10; ajs 21:36 BP 114 / 64; Pulse 86; Resp 16; Temp 98.4; Pulse Ox 99% ; Pain 9/10; ajs 13:14 Body Mass Index 27.46 (74.84 kg, 165.10 cm) dsf Vitals: 13:04 Log In Time N/A - ambulance arrival. kr3 ED Course: 12:58 Patient visited by Kenia Burton, Home Demonstration Agent. deg 12:58 Patient moved to Waiting deg 12:58 Patient moved to I deg 13:00 [facility] Sol[facility] cc10 13:00 Cam Desir MD is Attending Physician. cc10 13:02 Triage Initiated kr3 13:28 Patient visited by Florecita Brown RN. kr3 13:28 Inserted saline lock: 20 gauge in right antecubital area The patient tolerated the kr3 procedure well. 13:29 The patient / caregiver is instructed regarding the plan of care and ED course. Patient kr3 has correct armband on for positive identification. Placed in gown. Bed in low position. Call light in reach. Side rails up X 1. 13:37 Patient visited by Ba Soliman PA-C. cc10 13:37 Patient visited by Ba Soliman PA-C. cc10 13:40 Basic Metabolic Profile Sent. dsf 13:40 CBC with Diff Sent. dsf 13:40 Lipase Sent. dsf 13:40 Liver Profile Sent. dsf 14:25 Urinalysis Sent. kr3 14:28 Patient visited by Florecita Brown RN. kr3 14:28 Abdomen, Flat\\E\\Upright,PA Chest Returned. EDMS 14:35 [facility] is Referral Physician. cc10 15:20 Patient visited by Debi Vigil,DINESH. dsf 15:33 Patient visited by Debi Vigil RN. dsf 16:02 PHCP role handed off by Ba Soliman PA-C ck7 16:02 Edison Valencia RPA-C is PHCP. ck7 16:11 [facility] Payment Agreement was scanned into mention and attached to record. lg 16:40 Patient visited by Florecita Brown RN. kr3 17:19 Patient visited by Debi Vigil RN. dsf 18:14 Patient visited by Edison Valencia RPA-C. ck7 18:21 ABD US: Limited Returned. EDMS 18:26 Sung Ferris DO is Hospitalizing Provider. ck7 20:41 Patient visited by Chante Escobedo. ajs 21:37 Patient visited by Chante Escobedo. ajs 21:41 No procedures done that require assistance. dsf Administered Medications: 13:40 Drug: Ondansetron 4 mg [ondansetron HCl 2 mg/mL intravenous solution (2 mL)] Route: dsf IVP; Site: right antecubital; 13:40 Drug: ketorolac 30 mg [ketorolac 30 mg/mL (1 mL) injection solution (1 mL)] Route: IVP; dsf Site: right antecubital; 14:25 Follow up: Pain 8/10 Adult; Response: Pain is decreased kr3 15:13 Drug: Metoclopramide 10 mg [metoclopramide 5 mg/mL injection solution] Route: IV; Rate: dsf 40 mg/hr; Infused Over: 15 mins; Site: right antecubital; 18:58 Follow up: IV Status: Completed infusion; IV Intake: 10ml dsf 15:13 Not Given (Patient Refused): GI Cocktail - (Alum-Mag Hydroxide-Simeth Suspension 225 dsf mg-200 mg-25 mg/5 mL 30 ml, Lidocaine Liquid 2 % 10 ml, Hyoscyamine Liquid 10 ml) PO once; Pre-mixed 50mL unit dose 17:18 Not Given (Patient Refused): GI Cocktail - (Alum-Mag Hydroxide-Simeth Suspension 225 dsf mg-200 mg-25 mg/5 mL 30 ml, Lidocaine Liquid 2 % 10 ml, Hyoscyamine Liquid 10 ml) PO once; Pre-mixed 50mL unit dose 18:49 Drug: morphine 2 mg [morphine 2 mg/mL intravenous cartridge (1 mL)] Route: IVP; Site: kr3 right antecubital; 20:52 Drug: Ondansetron 4 mg [ondansetron HCl 2 mg/mL intravenous solution (2 mL)] Route: dsf IVP; Site: right antecubital; 21:38 Drug: morphine 2 mg [morphine 2 mg/mL intravenous cartridge (1 mL)] Route: IVP; Site: dsf right antecubital; 21:42 Follow up: Response: Pt left department before re-evaluation is appropriate dsf Intake: 18:58 IV: 10.00ml; Total: 10.00ml. dsf Order Results: Lab Order: Basic Metabolic Profile; SPEC'M 07/31/16 13:41 Test: GLUCOSE, FASTING; Value: 85; Range: 70-105; Units: MG/DL; Status: F Test: BLOOD UREA NITROGEN; Value: 25; Range: 7-18; Abnormal: High; Units: MG/DL; Status: F Test: CREATININE FOR GFR; Value: 0.61; Range: 0.55-1.02; Units: MG/DL; Status: F Test: SODIUM LEVEL; Range: 136-145; Units: MEQ/L; Status: I Test: POTASSIUM SERUM; Range: 3.5-5.1; Units: MEQ/L; Status: F Test: CHLORIDE LEVEL; Range: 98-107; Units: MEQ/L; Status: I Test: CARBON DIOXIDE LEVEL; Range: 21-32; Units: MEQ/L; Status: I Test: ANION GAP; Range: 8-16; Units: MEQ/L; Status: I Test: CALCIUM LEVEL; Range: 8.5-10.1; Units: MG/DL; Status: I Test Note: ; Testing was performed on a SLIGHTLY hemolyzed specimen. Suggest recollection of specimen for more accurate test results. Test: GLOMERULAR FILTRATION RATE; Value: > 60.0; Range: >60; Status: F Test: SODIUM LEVEL; Value: 139; Range: 136-145; Units: MEQ/L; Status: F Test: POTASSIUM SERUM; Range: 3.5-5.1; Units: MEQ/L; Status: F Test: CHLORIDE LEVEL; Value: 106; Range: 98-107; Units: MEQ/L; Status: F Test: CARBON DIOXIDE LEVEL; Value: 23; Range: 21-32; Units: MEQ/L; Status: F Test: ANION GAP; Value: 10; Range: 8-16; Units: MEQ/L; Status: F Test: CALCIUM LEVEL; Value: 8.6; Range: 8.5-10.1; Units: MG/DL; Status: F Test Note: ; Units are mL/min/1.73 m2 Chronic Kidney Disease Staging per NKF: Stage I & II GFR >=60 Normal to Mildly Decreased Stage III GFR 30-59 Moderately Decreased Stage IV GFR 15-29 Severely Decreased Stage V GFR <15 Very Little GFR Left ESRD GFR <15 on FOOD SERVICE SUPERVISOR Lab Order: CBC with Diff; SPEC'M 07/31/16 13:41 Test: WHITE BLOOD COUNT; Value: 13.3; Range: 4.0-10.0; Abnormal: Above high normal; Units: K/mm3; Status: F Test: RED BLOOD COUNT; Value: 3.50; Range: 4.00-5.40; Abnormal: Below low normal; Units: M/mm3; Status: F Test: HEMOGLOBIN; Value: 10.3; Range: 12.0-16.0; Abnormal: Below low normal; Units: g/dl; Status: F Test: HEMATOCRIT; Value: 32.9; Range: 36.0-47.0; Abnormal: Below low normal; Units: %; Status: F Test: MEAN CORPUSCULAR VOLUME; Value: 93.9; Range: 80.0-96.0; Units: fl; Status: F Test: MEAN CORPUSCULAR HEMOGLOBIN; Value: 29.5; Range: 27.0-33.0; Units: pg; Status: F Test: MEAN CORPUSCULAR HGB CONC; Value: 31.4; Range: 32.0-36.5; Abnormal: Below low normal; Units: g/dl; Status: F Test: RED CELL DISTRIBUTION WIDTH; Value: 13.4; Range: 11.5-14.5; Units: %; Status: F Test: PLATELET COUNT, AUTOMATED; Value: 608; Range: 150-450; Abnormal: Above high normal; Units: k/mm3; Status: F Test: NEUTROPHILS %; Value: 78.9; Range: 36.0-66.0; Abnormal: Above high normal; Units: %; Status: F Test: LYMPH %; Value: 13.8; Range: 24.0-44.0; Abnormal: Below low normal; Units: %; Status: F Test: MONO %; Value: 4.6; Range: 0.0-5.0; Units: %; Status: F Test: EOS %; Value: 1.0; Range: 0.0-3.0; Units: %; Status: F Test: BASO %; Value: 0.3; Range: 0.0-1.0; Units: %; Status: F Test: LARGE UNSTAINED CELL %; Value: 1.5; Range: 0.0-4.0; Units: %; Status: F Test: NEUTROPHILS #; Value: 10.5; Range: 1.8-7.7; Abnormal: Above high normal; Units: K/mm3; Status: F Test: LYMPH #; Value: 1.8; Range: 1.5-4.5; Units: K/mm3; Status: F Test: MONO #; Value: 0.6; Range: 0.0-0.8; Units: K/mm3; Status: F Test: EOS #; Value: 0.1; Range: 0.0-0.50; Units: K/mm3; Status: F Test: BASO #; Value: 0.0; Range: 0.0-0.2; Units: K/mm3; Status: F Test: LARGE UNSTAINED CELL #; Value: 0.2; Range: 0.0-0.4; Units: K/mm3; Status: F Lab Order: Lipase; SPEC'M 07/31/16 13:41 Test: LIPASE; Value: 94; Range: 73-393; Units: U/L; Status: F Lab Order: Liver Profile; SPEC'M 07/31/16 13:41 Test: AST/SGOT; Value: 29; Range: 15-37; Units: U/L; Status: F Test: ALT/SGPT; Value: 18; Range: 12-78; Units: U/L; Status: F Test: ALKALINE PHOSPHATASE; Value: 68; Range: 45-117; Units: U/L; Status: F Test: BILIRUBIN,TOTAL; Value: 0.5; Range: 0.2-1.0; Units: MG/DL; Status: F Test: BILIRUBIN,DIRECT; Value: < 0.1; Range: 0.0-0.2; Units: MG/DL; Status: F Test: TOTAL PROTEIN; Value: 6.6; Range: 6.4-8.2; Units: GM/DL; Status: F Test: ALBUMIN; Value: 3.1; Range: 3.2-5.2; Abnormal: Below low normal; Units: GM/DL; Status: F Test: ALBUMIN/GLOBULIN RATIO; Value: 0.89; Range: 1.00-1.93; Abnormal: Below low normal; Status: F Lab Order: Urinalysis; SPEC'M 07/31/16 14:24 Test: APPEARANCE, URINE; Value: HAZY; Range: CLEAR; Status: F Test: COLOR, URINE; Value: YELLOW; Range: YELLOW; Status: F Test: PH,URINE; Value: 6.0; Range: 5.0-9.0; Units: UNITS; Status: F Test: SPECIFIC GRAVITY URINE AUTO; Value: 1.025; Range: 1.002-1.035; Status: F Test: PROTEIN, URINE AUTO; Value: NEGATIVE; Range: NEGATIVE; Units: mg/dL; Status: F Test: GLUCOSE, URINE (UA) AUTO; Value: NEGATIVE; Range: NEGATIVE; Units: mg/dL; Status: F Test: KETONE, URINE AUTO; Value: 2+; Range: NEGATIVE; Abnormal: Above high normal; Units: mg/dL; Status: F Test: UROBILINOGEN, URINE AUTO; Value: 2.0; Range: 0.0-2.0; Abnormal: Above high normal; Units: mg/dL; Status: F Test: BILIRUBIN, URINE AUTO; Value: NEGATIVE; Range: NEGATIVE; Status: F Test: NITRITE, URINE AUTO; Value: NEGATIVE; Range: NEGATIVE; Status: F Test: LEUKOCYTE ESTERASE, URINE AUTO; Value: NEGATIVE; Range: NEGATIVE; Status: F Test: BLOOD, URINE BLOOD; Value: NEGATIVE; Range: NEGATIVE; Status: F Test: WBC, URINE AUTO; Value: 2; Range: 0-3; Units: /HPF; Status: F Test: RBC, URINE AUTO; Value: 1; Range: 0-3; Units: /HPF; Status: F Test: BACTERIA, URINE AUTO; Value: NEGATIVE; Range: NEGATIVE; Status: F Test: SQUAMOUS EPITHELIAL CELL UR AU; Value: 1; Range: 0-6; Units: /HPF; Status: F Test: MUCUS, URINE; Value: SMALL; Range: NEGATIVE; Status: F Test: HYALINE CAST, URINE AUTO; Value: 0; Range: 0-1; Units: /LPF; Status: F Test: AMORPHOUS SEDIMENT; Value: SMALL; Range: NEGATIVE; Abnormal: Above high normal; Status: F Radiology Order: Abdomen, Flat\\E\\Upright,PA Chest Test: Abdomen, Flat\\E\\Upright,PA Chest REASON FOR EXAMINATION: Abdomen Pain; Clinical: Acute abdominal pain.; ; Technique: Upright view of the chest with supine and upright views of the; abdomen and pelvis.; ; Findings: Frontal upright view of the chest demonstrates no acute; cardiopulmonary process or free air below the diaphragm to suspect; pneumoperitoneum. Supine and upright views of the abdomen and pelvis demonstrate; nonspecific bowel gas pattern without obstruction or perforation. No; organomegaly. No abnormal calcifications. Skeletal structures normal for age.; ; Impression:; Nonspecific bowel gas pattern.; ; ; Signed by; Yao Ruiz MD 07/31/2016 02:14 P; Radiology Order: ABD US: Limited Test: ABD US: Limited REASON FOR EXAMINATION: R/O INCAR FAT HERNIA, EPIGASTRIC PORT SITE S/P LAP AMY; Clinical: Pain at the site of prior laparoscopic cholecystectomy trocar site.; ; Technique: Real time pompa scale and color evaluation using linear high frequency; transducer.; ; Findings:; Directed ultrasound examination at the site of tenderness in the midline; epigastrium demonstrates what appears to be a fat filled tract which may also; contain small amount of complex fluid. Color evaluation demonstrates no; associated vascularity and no evidence for drainable collection/abscess. No; definite hernia.; ; Impression:; Small amount of fat and possible mixed complex fluid at the site of trocar from; prior laparoscopic cholecystectomy.; ; ; Signed by; Yao Ruiz MD 07/31/2016 05:42 P; Outcome: 14:35 Discharge ordered by Provider. cc10 18:22 Ultrasound Study completed. kr3 18:27 Decision to Hospitalize by Provider. ck7 20:06 Admission hand-off: Report called to Ariela MONTIEL. dsf 21:41 Discharge Assessment: Patient awake, alert and oriented x 3. No cognitive and/or dsf functional deficits noted. Patient verbalized understanding of disposition instructions. patient administered narcotics - yes. Patient was admitted to the hospital or transferred to another facility. The following High Risk Discharge criteria are identified: None. Admitted to Med/Surg accompanied by tech, via stretcher, with chart. Condition: stable. Property :Personal belongings accompany Pt. 21:43 Patient left the ED. dsf Signatures: Dispatcher [employer] EDMS Kenia Burton, Home Demonstration Agent Unit deg Eder Jaffe, Florecita Machado lg,RN RN kr3 Debi Vigil RN RN dsf Chante Escobedo Christopher, RPA-C [id number] Ba Soliman PA-C PA-C cc10 TERESA
--- NOTE | 2016-07-31 21:44 | EDDOCDS ---
Physician Documentation [facility] Name: Spring Sample Age: 36 yrs Sex: Female : 1980 Arrival Date: 07/31/2016 Time: 12:57 Bed I7 / 29 Private MD: Disposition: 07/31/16 18:27 Hospitalization ordered by Sung Ferris for Inpatient Admission. Preliminary diagnosis are Upper abdominal pain, unspecified, Hematemesis. - Bed requested for 4 [place]. - Status is Inpatient Admission. dsf - Condition is Stable. - Problem is new. - Symptoms are unchanged. Historical: - Allergies: no known allergies; - Home Meds: 1. Ambien 10 mg Oral tab 1 tab once daily (Last dose: 07/30/2016) 2. citalopram 40 mg Oral tab 1 tab once daily (Last dose: 07/30/2016) 3. melatonin 10 mg Oral tab nightly (Last dose: Unknown) 4. Seroquel 200 mg Oral tab 1 tab nightly (Last dose: Unknown) 5. [place] 5-325 mg Oral tab 2 tabs every 4 hours ran out 6. Senna Plus 8.6-50 mg oral tab 1 tabs twice a day (Last dose: 07/30/2016) 7. Percocet Unknown Oral every 4 hours ran out 07/30/16 - PMHx: Anxiety; Depression; PTSD; - PSHx: Cholecystectomy; - Social history: Smoking status: Patient states former smoker of tobacco. No barriers to communication noted, The patient speaks fluent [place]. - Family history: Not pertinent. - : The pt / caregiver states he / she is not on anticoagulants. Home medication list is obtained from the patient, [employer] import data. - Exposure Risk Screening:: None identified. 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 5 in. (165.10 cm) (R); Pain 10/10; 14:25 Pain 8/10; kr3 18:43 BP 98 / 59; Pulse 105; Resp 18; Temp 96.9; Pulse Ox 99% ; Pain 10/10; ajs 21:36 BP 114 / 64; Pulse 86; Resp 16; Temp 98.4; Pulse Ox 99% ; Pain 9/10; ajs 13:14 Body Mass Index 27.46 (74.84 kg, 165.10 cm) dsf MDM: 13:33 Ondansetron 4 mg IVP once ordered. cc10 13:33 ketorolac 30 mg IVP once ordered. cc10 13:33 IV Saline Lock ordered. cc10 13:33 Undress patient appropriately for examination ordered. cc10 13:34 Basic Metabolic Profile Ordered. EDMS 13:34 CBC with Diff Ordered. EDMS 13:34 Lipase Ordered. EDMS 13:34 Liver Profile Ordered. EDMS 13:34 Urinalysis Ordered. EDMS 13:35 NOTHING BY MOUTH+DIET ordered. EDMS 13:36 Abdomen, Flat\E\Upright,PA Chest Ordered. EDMS 14:30 Basic Metabolic Profile Reviewed. cc10 14:30 CBC with Diff Reviewed. cc10 14:30 Liver Profile Reviewed. cc10 14:30 Lipase Reviewed. cc10 14:30 Abdomen, Flat\E\Upright,PA Chest Reviewed. cc10 14:59 Financial registration complete. lg 15:00 Metoclopramide 10 mg IV at 40 mg/hr once over 15 mins ordered. cc10 15:00 GI Cocktail - (Alum-Mag Hydroxide-Simeth 30 ml, Lidocaine 10 ml, Hyoscyamine 10 ml) PO cc10 once; Pre-mixed 50mL unit dose ordered. 15:21 Urinalysis Reviewed. cc10 16:11 [facility] Payment Agreement was scanned into [employer] and attached to record. lg 16:55 ABD US: Limited Ordered. EDMS 16:57 ED course: DR FERRIS IN TO EVAL PATIENT, WOULD LIKE ABD US TO R/O INCARCERATED FAT ck7 HERNIA OF THE EPIGASTRIC PORT SITE, WOULD LIKE CONSULT CALL PLACED WHEN RESULTS AVAILABLE. 17:05 GI Cocktail - (Alum-Mag Hydroxide-Simeth 30 ml, Lidocaine 10 ml, Hyoscyamine 10 ml) PO dsf once; Pre-mixed 50mL unit dose ordered. 18:27 ED course: PT WENT FOR US, REPORT FINALIZED, JUST CONSULT WAS PLACED TO DR FERRIS, ck7 PT HAD EPISODE OF EMESIS, BROWN IN COLOR, POSITIVE FOR HEME. US RESULTS AND EMESIS ADVISED TO DR FERRIS, PT DID NOT TAKE GI COCKTAIL WHEN ORDERED FOR THE SECOND TIME. DR FERRIS WILL ADMIT PT AND DO UPPER GI SCOPE TOMORROW, POSSIBLE BLEEDING ULCER. PT AGREEABLE TO ADMISSION. 18:28 BED REQUEST+ADM ordered. EDMS 18:40 Admission / Observation Status ordered. EDMS 18:40 NPO DIET ordered. EDMS 18:46 morphine 2 mg IVP once ordered. kr3 19:33 COMPLETE BLOOD COUNT Ordered. EDMS 19:33 COMPLETE COMPHRENSIVE METABOLI Ordered. EDMS 19:33 MAGNESIUM LEVEL Ordered. EDMS 19:33 LIPASE Ordered. EDMS 20:49 Ondansetron 4 mg IVP once; admission order ordered. dsf 21:38 morphine 2 mg IVP once; admission order ordered. dsf Administered Medications: 13:40 Drug: Ondansetron 4 mg [ondansetron HCl 2 mg/mL intravenous solution (2 mL)] Route: dsf IVP; Site: right antecubital; 13:40 Drug: ketorolac 30 mg [ketorolac 30 mg/mL (1 mL) injection solution (1 mL)] Route: IVP; dsf Site: right antecubital; 14:25 Follow up: Pain 8/10 Adult; Response: Pain is decreased kr3 15:13 Drug: Metoclopramide 10 mg [metoclopramide 5 mg/mL injection solution] Route: IV; Rate: dsf 40 mg/hr; Infused Over: 15 mins; Site: right antecubital; 18:58 Follow up: IV Status: Completed infusion; IV Intake: 10ml dsf 15:13 Not Given (Patient Refused): GI Cocktail - (Alum-Mag Hydroxide-Simeth Suspension 225 dsf mg-200 mg-25 mg/5 mL 30 ml, Lidocaine Liquid 2 % 10 ml, Hyoscyamine Liquid 10 ml) PO once; Pre-mixed 50mL unit dose 17:18 Not Given (Patient Refused): GI Cocktail - (Alum-Mag Hydroxide-Simeth Suspension 225 dsf mg-200 mg-25 mg/5 mL 30 ml, Lidocaine Liquid 2 % 10 ml, Hyoscyamine Liquid 10 ml) PO once; Pre-mixed 50mL unit dose 18:49 Drug: morphine 2 mg [morphine 2 mg/mL intravenous cartridge (1 mL)] Route: IVP; Site: kr3 right antecubital; 20:52 Drug: Ondansetron 4 mg [ondansetron HCl 2 mg/mL intravenous solution (2 mL)] Route: dsf IVP; Site: right antecubital; 21:38 Drug: morphine 2 mg [morphine 2 mg/mL intravenous cartridge (1 mL)] Route: IVP; Site: dsf right antecubital; 21:42 Follow up: Response: Pt left department before re-evaluation is appropriate dsf Signatures: Dispatcher [employer] EDMS Eder Jaffe, Reg Reg lg Bert GillKatie, Corporate Consultant Unit ml3 Florecita Brown,RN RN kr3 Debi Vigil RN RN dsf Edison Valencia, SEBASTIAN-C RPA-Cck7 Ba Soliman PA-C PA-C cc10 The chart was reviewed and I authenticate all verbal orders and agree with the evaluation and treatment provided.Attachments: 16:11 [facility] Payment Agreement lg MTDD
[2016-07-31 21:48] VITALS: BP 131/92
[2016-07-31] MEDS: KCL 20MEQ IN D5/0.45NS 1000ML 1,000 ML IV SCH (22:26)
[2016-07-31] MEDS: SUCRALFATE 1 GM TAB PO SCH (22:26)
[2016-07-31] MEDS: GABAPENTIN 300 MG CAP PO SCH (22:26)
[2016-07-31] MEDS: HEPARIN SOD (PORCINE) 5000 UNITS/ML VIAL SC SCH (22:26)
[2016-07-31] MEDS: zolPIDEM TARTRATE 10MG TAB PO SCH (22:26)
[2016-07-31] MEDS: SENOKOT S TAB PO SCH (22:26)
[2016-07-31] MEDS: QUEtiapine FUMARATE 200 MG TAB PO SCH (22:26)
[2016-07-31] MEDS: KETOROLAC 30 MG/ML VIAL (J1885) IV PRN (23:01)
[2016-08-01] MEDS: KCL 20MEQ IN D5/0.45NS 1000ML 1,000 ML IV SCH ×3 (02:45→21:31)
[2016-08-01] MEDS: METOCLOPRAMIDE INJ 10MG/2ML VIAL (J2765) IV PRN ×3 (02:55→19:55)
[2016-08-01] MEDS: MORPHINE 2 MG/ML 1ML SYRINGE IV PRN ×6 (02:55→23:38)
[2016-08-01 05:30] VITALS: BP 114/54
[2016-08-01] MEDS: HEPARIN SOD (PORCINE) 5000 UNITS/ML VIAL SC SCH ×3 (05:48→19:56)
[2016-08-01] MEDS: KETOROLAC 30 MG/ML VIAL (J1885) IV PRN ×3 (05:57→18:06)
[2016-08-01 07:12] LABS: MEAN CORPUSCULAR HEMOGLOBIN 30.3 pg (27.0-33.0); MEAN CORPUSCULAR HGB CONC 32.4 g/dl (32.0-36.5); MEAN CORPUSCULAR VOLUME 93.7 fl (80.0-96.0); RED CELL DISTRIBUTION WIDTH 13.7 % (11.5-14.5); WHITE BLOOD COUNT 9.2 K/mm3 (4.0-10.0)
[2016-08-01 07:22] LABS: ALBUMIN 2.7 GM/DL (3.2-5.2); ALBUMIN/GLOBULIN RATIO 0.79 (1.00-1.93); ALKALINE PHOSPHATASE 60 U/L (45-117); ALT/SGPT 18 U/L (12-78); ANION GAP 7 MEQ/L (8-16); AST/SGOT 6 U/L (15-37); BILIRUBIN,TOTAL 0.3 MG/DL (0.2-1.0); BLOOD UREA NITROGEN 24 MG/DL (7-18); CALCIUM LEVEL 8.5 MG/DL (8.5-10.1); CARBON DIOXIDE LEVEL 24 MEQ/L (21-32); CHLORIDE LEVEL 111 MEQ/L (98-107); CREATININE FOR GFR 0.62 MG/DL (0.55-1.02); GLOMERULAR FILTRATION RATE > 60.0 (>60); GLUCOSE, FASTING 102 MG/DL (70-105); POTASSIUM SERUM 3.7 MEQ/L (3.5-5.1); SODIUM LEVEL 142 MEQ/L (136-145); TOTAL PROTEIN 6.1 GM/DL (6.4-8.2)
[2016-08-01] MEDS: SENOKOT S TAB PO SCH ×2 (08:19→19:56)
[2016-08-01] MEDS: CitaloPRAM (CeleXA) 20 MG TAB PO SCH (08:19)
[2016-08-01] MEDS: SUCRALFATE 1 GM TAB PO SCH ×4 (08:19→19:55)
[2016-08-01] MEDS ORDERED: PANTOPRAZOLE 40MG INJ (PROTONIX) (C9113) IV SCH (09:00)
--- NOTE | 2016-08-01 09:19 | HPE ---
DATE OF ADMISSION: 07/31/2016 CHIEF COMPLAINT: Abdominal pain, hematemesis. HISTORY OF PRESENT ILLNESS: The patient is a 36-year-old female who had a laparoscopic cholecystectomy by myself on 07/22/2016. Since then, she has had epigastric pain radiating to her back, lots of nausea and vomiting. She has had difficulty tolerating any liquids or solids. She has been to the emergency room (ER) multiple times over the past week. However, I was never notified of these. She was treated for back pain and told to followup with her primary doctor. Yesterday, she followed up with her primary who got the impression that the ERs were assuming she was drug seeking and were not really taking her symptoms seriously. She then came into his office. He felt that she was having something significantly wrong. He called me. Based off her symptoms, I was not sure if she had any type of biloma or abscess after her gallbladder. Therefore, I asked him to send her to [facility] ER. When I went down to see her in the ER, she was crying in pain and very emotional. It was very difficult to get any history from her. She just kept complaining about the ERs and how no one is trusting her and believing her, so I had a very difficult time obtaining any meaningful history from her. I was able to obtain the fact that she has been having this epigastric pain, lots of nausea and vomiting, and pain radiating to her back. She was not very specific as to the types of medication that she has been taking, but she denies really having an appetite and that she is vomiting with almost everything she takes in whether liquid or solid. PAST MEDICAL HISTORY: 1. Anxiety. 2. Depression. 3. Post traumatic stress disorder. PAST SURGICAL HISTORY: Cholecystectomy. ALLERGIES: None. HOME MEDICATIONS: - Ambien - citalopram - melatonin - Seroquel - [place] - senna - Percocet SOCIAL HISTORY: Denies any current drug, alcohol or tobacco abuse. FAMILY HISTORY: Noncontributory. REVIEW OF SYSTEMS: Pertinent positives and negatives as stated in the history of present illness (HPI). PHYSICAL EXAMINATION: GENERAL: Alert and oriented times three. No acute distress. VITALS: Temperature 96.9, pulse 109, respirations 18, blood pressure 131/92, pulse oximetry 100% on room air. HEENT: Pupils equally round and react to light and accommodation. HEART: S1, S2. Regular rate and rhythm. LUNGS: Clear to auscultation bilaterally. ABDOMEN: Soft. Tender to palpation epigastric. There is a little bit of fullness at the epigastric port site. No rebound, guarding or rigidity. Bowel sounds positive. EXTREMITIES: No clubbing, cyanosis or edema. LABS: White count 13.3, hemoglobin 10.3, and platelets 608. Total bilirubin 0.5, direct bilirubin 0.1. AST 29, ALT 18, lipase 94. IMAGING: She had a CT of abdomen and pelvis done on 07/27/2016 which was negative for any abscess, biloma, free air or evidence of any ileus or obstruction. CT of abdomen and pelvis done on 07/15/2016 did show that there was an inflammation and swelling around the duodenum. Abdominal ultrasound shows a small amount of fat and possible mixed complex fluid at the site of the trocar from the epigastric port site, no distinct signs of hernia. ASSESSMENT AND PLAN: The patient is a 36-year-old female ten days status post laparoscopic cholecystectomy with persistent epigastric pain radiating to her back with lots of nausea and vomiting that has most recently become hematemesis. She does have a history of thickening duodenum on her previous CAT scan two weeks ago. That coupled with her symptoms of epigastric pain radiating to the back and hematemesis are concerning for possible peptic ulcer versus duodenal ulcer, especially with the fact that she has not been eating very much after her surgery and taking lots of pain medications this could have exacerbated her previous symptoms, even though she denies any history of heartburn or reflux. Mild leukocytosis currently is likely secondary to dehydration and vomiting. There are no signs of any infectious process going on. Recommendation at this time is IV fluids, nothing by mouth and will take her to the operating room (OR) for esophagogastroduodenoscopy (EGD) to evaluate for gastritis, duodenitis, peptic or duodenal ulcers. If those all come back negative, then we will talk about possibly a diagnostic laparoscopy to evaluate her epigastric port site; however, if there are any positive findings we will treat as needed with Carafate and proton pump inhibitors (PPIs).
--- NOTE | 2016-08-01 12:20 | ROOR ---
Patient Name: Spring Smith Procedure Date: 08/01/2016 11:58 AM Date of : 1980 Age: 36 Gender: Female Note Status: Finalized Procedure: Upper GI endoscopy Indications: Hematemesis Providers: Sung Ferris DO Referring MD: Sung Ferris DO Requesting Provider: Medicines: Propofol per Anesthesia Complications: No immediate complications. Procedure: Pre-Anesthesia Assessment: - Prior to the procedure, a History and Physical was performed, and patient medications and allergies were reviewed. The patient is competent. The risks and benefits of the procedure and the sedation options and risks were discussed with the patient. All questions were answered and informed consent was obtained. Patient identification and proposed procedure were verified by the physician, the nurse, the track subway repair supervisor and the records management technician in the procedure room. Mental Status Examination: alert and oriented. Airway Examination: normal oropharyngeal airway and neck mobility. Respiratory Examination: clear to auscultation. CV Examination: normal. Prophylactic Antibiotics: The patient does not require prophylactic antibiotics. Prior Anticoagulants: The patient has taken no previous anticoagulant or antiplatelet agents. ASA Grade Assessment: II - A patient with mild systemic disease. After reviewing the risks and benefits, the patient was deemed in satisfactory condition to undergo the procedure. The anesthesia plan was to use monitored anesthesia care (MAC). Immediately prior to administration of medications, the patient was re-assessed for adequacy to receive sedatives. The heart rate, respiratory rate, oxygen saturations, blood pressure, adequacy of pulmonary ventilation, and response to care were monitored throughout the procedure. The physical status of the patient was re-assessed after the procedure. The Endoscope was introduced through the mouth, and advanced to the third part of duodenum. The upper GI endoscopy was accomplished without difficulty. The patient tolerated the procedure well. Findings: One non-bleeding cratered duodenal ulcer with a visible vessel was found in the second part of the duodenum. The lesion was 20 mm in largest dimension. Biopsies were taken with a cold forceps for histology. Mild inflammation characterized by congestion (edema) was found in the entire examined stomach. Biopsies were taken with a cold forceps for Helicobacter pylori testing. Estimated blood loss was minimal. The exam was otherwise without abnormality. Impression: - One non-bleeding duodenal ulcer with a visible vessel. Biopsied. - Gastritis. Biopsied. - The examination was otherwise normal. Recommendation: - [facility]. - Clear liquid diet today. Attending Participation: I personally performed the entire procedure. Sung Ferris DO 08/01/2016 12:19:47 PM This report has been signed electronically. Number of Addenda: 0 Note Initiated On: 08/01/2016 11:58 AM Estimated Blood Loss: Estimated blood loss was minimal.
[2016-08-01] MEDS ORDERED: PROPOFOL 200 MG/20 ML VIAL As Ordered ONE (12:29)
[2016-08-01] MEDS ORDERED: LIDOCAINE 2% INJ 100 MG/5 ML SDV (FOR ANES.) As Ordered ONE (12:29)
[2016-08-01] MEDS: fentaNYL 100 MCG/2 ML INJECTION (J3010) IV PRN ×2 (12:40→12:45)
[2016-08-01] MEDS ORDERED: fentaNYL 100 MCG/2 ML INJECTION (J3010) As Ordered ONE (12:44)
[2016-08-01] MEDS ORDERED: ONDANSETRON 4MG/2ML VIAL (J2405) As Ordered ONE (12:50)
[2016-08-01] MEDS ORDERED: KETOROLAC 30 MG/ML VIAL (J1885) As Ordered ONE (12:50)
[2016-08-01] MEDS ORDERED: LR 1,000 ML IV SCH ×2 (13:00→13:30)
[2016-08-01] MEDS ORDERED: ONDANSETRON 4MG/2ML VIAL (J2405) IV PRN ×2 (13:00→13:30)
[2016-08-01] MEDS ORDERED: METOCLOPRAMIDE INJ 10MG/2ML VIAL (J2765) As Ordered ONE (13:18)
[2016-08-01] MEDS ORDERED: fentaNYL 100 MCG/2 ML INJECTION (J3010) IV PRN (13:30)
[2016-08-01] MEDS ORDERED: METOCLOPRAMIDE INJ 10MG/2ML VIAL (J2765) IV PRN (13:30)
[2016-08-01 13:45] VITALS: BP 111/68
[2016-08-01 14:00] VITALS: BP 115/72
[2016-08-01 14:30] VITALS: BP 121/70
[2016-08-01 15:00] VITALS: BP 116/70
[2016-08-01] MEDS: ONDANSETRON 4MG/2ML VIAL (J2405) IV PRN (18:06)
[2016-08-01] MEDS: QUEtiapine FUMARATE 200 MG TAB PO SCH (19:55)
[2016-08-01] MEDS: PANTOPRAZOLE 40MG INJ (PROTONIX) (C9113) IV SCH (19:55)
[2016-08-01] MEDS: GABAPENTIN 300 MG CAP PO SCH (19:55)
[2016-08-01] MEDS: zolPIDEM TARTRATE 10MG TAB PO SCH (19:55)
[2016-08-01 20:55] VITALS: BP 119/56
[2016-08-02] VITALS (7 sets, daily range): BP systolic 97–135; BP diastolic 43–82
[2016-08-02] MEDS: KETOROLAC 30 MG/ML VIAL (J1885) IV PRN ×3 (01:57→19:27)
[2016-08-02] MEDS: KCL 20MEQ IN D5/0.45NS 1000ML 1,000 ML IV SCH ×3 (05:51→18:25)
[2016-08-02 05:57] LABS: MEAN CORPUSCULAR HEMOGLOBIN 29.8 pg (27.0-33.0); MEAN CORPUSCULAR HGB CONC 32.6 g/dl (32.0-36.5); MEAN CORPUSCULAR VOLUME 91.5 fl (80.0-96.0); RED CELL DISTRIBUTION WIDTH 15.2 % (11.5-14.5); WHITE BLOOD COUNT 8.7 K/mm3 (4.0-10.0)
[2016-08-02 06:07] LABS: ALBUMIN 2.3 GM/DL (3.2-5.2); ALBUMIN/GLOBULIN RATIO 0.82 (1.00-1.93); ALKALINE PHOSPHATASE 41 U/L (45-117); ALT/SGPT 11 U/L (12-78); ANION GAP 8 MEQ/L (8-16); AST/SGOT 7 U/L (15-37); BILIRUBIN,TOTAL 0.6 MG/DL (0.2-1.0); BLOOD UREA NITROGEN 13 MG/DL (7-18); CALCIUM LEVEL 7.9 MG/DL (8.5-10.1); CARBON DIOXIDE LEVEL 24 MEQ/L (21-32); CHLORIDE LEVEL 112 MEQ/L (98-107); CREATININE FOR GFR 0.58 MG/DL (0.55-1.02); GLOMERULAR FILTRATION RATE > 60.0 (>60); GLUCOSE, FASTING 89 MG/DL (70-105); MAGNESIUM LEVEL 1.6 MG/DL (1.8-2.4); POTASSIUM SERUM 4.2 MEQ/L (3.5-5.1); SODIUM LEVEL 144 MEQ/L (136-145); TOTAL PROTEIN 5.1 GM/DL (6.4-8.2)
[2016-08-02] MEDS: ONDANSETRON 4MG/2ML VIAL (J2405) IV PRN (08:39)
[2016-08-02] MEDS: SUCRALFATE 1 GM TAB PO SCH ×4 (08:43→20:47)
[2016-08-02] MEDS: SENOKOT S TAB PO SCH (10:21)
[2016-08-02] MEDS: CitaloPRAM (CeleXA) 20 MG TAB PO SCH (10:21)
[2016-08-02] MEDS: PANTOPRAZOLE 40MG INJ (PROTONIX) (C9113) IV SCH (10:22)
[2016-08-02] MEDS: MORPHINE 2 MG/ML 1ML SYRINGE IV PRN ×5 (10:47→23:21)
[2016-08-02] MEDS: AMPICILLIN SOD/SULBACTAM SOD 3 GM in D5W MINI-BAG PLUS 100 ML IV SCH ×2 (13:51→18:24)
[2016-08-02] MEDS: zolPIDEM TARTRATE 10MG TAB PO SCH (20:47)
[2016-08-02] MEDS: PANTOPRAZOLE 40MG TAB (PROTONIX) PO SCH (20:48)
[2016-08-02] MEDS: GABAPENTIN 300 MG CAP PO SCH (20:48)
[2016-08-02] MEDS: QUEtiapine FUMARATE 200 MG TAB PO SCH (20:48)
--- NOTE | 2016-08-02 22:43 | EDDOCDS ---
Physician Documentation [facility] Name: Spring Sample Age: 36 yrs Sex: Female : 1980 Arrival Date: 07/31/2016 Time: 12:57 Bed I7 / 29 Private MD: Disposition: 07/31/16 18:27 Hospitalization ordered by Sung Ferris for Inpatient Admission. Preliminary diagnosis are Upper abdominal pain, unspecified, Hematemesis. - Bed requested for 4 [place]. - Status is Inpatient Admission. dsf - Condition is Stable. - Problem is new. - Symptoms are unchanged. Historical: - Allergies: no known allergies; - Home Meds: 1. Ambien 10 mg Oral tab 1 tab once daily (Last dose: 07/30/2016) 2. citalopram 40 mg Oral tab 1 tab once daily (Last dose: 07/30/2016) 3. melatonin 10 mg Oral tab nightly (Last dose: Unknown) 4. Seroquel 200 mg Oral tab 1 tab nightly (Last dose: Unknown) 5. [place] 5-325 mg Oral tab 2 tabs every 4 hours ran out 6. Senna Plus 8.6-50 mg oral tab 1 tabs twice a day (Last dose: 07/30/2016) 7. Percocet Unknown Oral every 4 hours ran out 07/30/16 - PMHx: Anxiety; Depression; PTSD; - PSHx: Cholecystectomy; - Social history: Smoking status: Patient states former smoker of tobacco. No barriers to communication noted, The patient speaks fluent Trin[place]. - Family history: Not pertinent. - : The pt / caregiver states he / she is not on anticoagulants. Home medication list is obtained from the patient, [employer] import data. - Exposure Risk Screening:: None identified. 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 5 in. (165.10 cm) (R); Pain 10/10; 14:25 Pain 8/10; kr3 18:43 BP 98 / 59; Pulse 105; Resp 18; Temp 96.9; Pulse Ox 99% ; Pain 10/10; ajs 21:36 BP 114 / 64; Pulse 86; Resp 16; Temp 98.4; Pulse Ox 99% ; Pain 9/10; ajs 13:14 Body Mass Index 27.46 (74.84 kg, 165.10 cm) dsf MDM: 13:33 Ondansetron 4 mg IVP once ordered. cc10 13:33 ketorolac 30 mg IVP once ordered. cc10 13:33 IV Saline Lock ordered. cc10 13:33 Undress patient appropriately for examination ordered. cc10 13:34 Basic Metabolic Profile Ordered. EDMS 13:34 CBC with Diff Ordered. EDMS 13:34 Lipase Ordered. EDMS 13:34 Liver Profile Ordered. EDMS 13:34 Urinalysis Ordered. EDMS 13:35 NOTHING BY MOUTH+DIET ordered. EDMS 13:36 Abdomen, Flat\E\Upright,PA Chest Ordered. EDMS 14:30 Basic Metabolic Profile Reviewed. cc10 14:30 CBC with Diff Reviewed. cc10 14:30 Liver Profile Reviewed. cc10 14:30 Lipase Reviewed. cc10 14:30 Abdomen, Flat\E\Upright,PA Chest Reviewed. cc10 14:59 Financial registration complete. lg 15:00 Metoclopramide 10 mg IV at 40 mg/hr once over 15 mins ordered. cc10 15:00 GI Cocktail - (Alum-Mag Hydroxide-Simeth 30 ml, Lidocaine 10 ml, Hyoscyamine 10 ml) PO cc10 once; Pre-mixed 50mL unit dose ordered. 15:21 Urinalysis Reviewed. cc10 16:11 [facility] Payment Agreement was scanned into [employer] and attached to record. lg 16:55 ABD US: Limited Ordered. EDMS 16:57 ED course: DR FERRIS IN TO EVAL PATIENT, WOULD LIKE ABD US TO R/O INCARCERATED FAT ck7 HERNIA OF THE EPIGASTRIC PORT SITE, WOULD LIKE CONSULT CALL PLACED WHEN RESULTS AVAILABLE. 17:05 GI Cocktail - (Alum-Mag Hydroxide-Simeth 30 ml, Lidocaine 10 ml, Hyoscyamine 10 ml) PO dsf once; Pre-mixed 50mL unit dose ordered. 18:27 ED course: PT WENT FOR US, REPORT FINALIZED, JUST CONSULT WAS PLACED TO DR FERRIS, ck7 PT HAD EPISODE OF EMESIS, BROWN IN COLOR, POSITIVE FOR HEME. US RESULTS AND EMESIS ADVISED TO DR FERRIS, PT DID NOT TAKE GI COCKTAIL WHEN ORDERED FOR THE SECOND TIME. DR FERRIS WILL ADMIT PT AND DO UPPER GI SCOPE TOMORROW, POSSIBLE BLEEDING ULCER. PT AGREEABLE TO ADMISSION. 18:28 BED REQUEST+ADM ordered. EDMS 18:40 Admission / Observation Status ordered. EDMS 18:40 NPO DIET ordered. EDMS 18:46 morphine 2 mg IVP once ordered. kr3 19:33 COMPLETE BLOOD COUNT Ordered. EDMS 19:33 COMPLETE COMPHRENSIVE METABOLI Ordered. EDMS 19:33 MAGNESIUM LEVEL Ordered. EDMS 19:33 LIPASE Ordered. EDMS 20:49 Ondansetron 4 mg IVP once; admission order ordered. dsf 21:38 morphine 2 mg IVP once; admission order ordered. dsf 08/01 12:16 T-Sheet-- Draft Copy was scanned into [employer] and attached to record. gb 12:16 PCR was scanned into [employer] and attached to record. gb Administered Medications: 07/31 13:40 Drug: Ondansetron 4 mg [ondansetron HCl 2 mg/mL intravenous solution (2 mL)] Route: dsf IVP; Site: right antecubital; 13:40 Drug: ketorolac 30 mg [ketorolac 30 mg/mL (1 mL) injection solution (1 mL)] Route: IVP; dsf Site: right antecubital; 14:25 Follow up: Pain 8/10 Adult; Response: Pain is decreased kr3 15:13 Drug: Metoclopramide 10 mg [metoclopramide 5 mg/mL injection solution] Route: IV; Rate: dsf 40 mg/hr; Infused Over: 15 mins; Site: right antecubital; 18:58 Follow up: IV Status: Completed infusion; IV Intake: 10ml dsf 15:13 Not Given (Patient Refused): GI Cocktail - (Alum-Mag Hydroxide-Simeth Suspension 225 dsf mg-200 mg-25 mg/5 mL 30 ml, Lidocaine Liquid 2 % 10 ml, Hyoscyamine Liquid 10 ml) PO once; Pre-mixed 50mL unit dose 17:18 Not Given (Patient Refused): GI Cocktail - (Alum-Mag Hydroxide-Simeth Suspension 225 dsf mg-200 mg-25 mg/5 mL 30 ml, Lidocaine Liquid 2 % 10 ml, Hyoscyamine Liquid 10 ml) PO once; Pre-mixed 50mL unit dose 18:49 Drug: morphine 2 mg [morphine 2 mg/mL intravenous cartridge (1 mL)] Route: IVP; Site: kr3 right antecubital; 20:52 Drug: Ondansetron 4 mg [ondansetron HCl 2 mg/mL intravenous solution (2 mL)] Route: dsf IVP; Site: right antecubital; 21:38 Drug: morphine 2 mg [morphine 2 mg/mL intravenous cartridge (1 mL)] Route: IVP; Site: dsf right antecubital; 21:42 Follow up: Response: Pt left department before re-evaluation is appropriate dsf Signatures: Dispatcher [employer] EDMS Jossie Candelaria, Reg Reg gb Eder Jfafe, Reg Reg lg Janak Gill, Laborer [employer] Gun Placing Unit ml3 Florecita Brown,DINESH RN kr3 Debi Vigil RN RN dsf Edison Valencia, RPA-C RPA-Cck7 Ba Soliman, PA-C PA-C cc10 The chart was reviewed and I authenticate all verbal orders and agree with the evaluation and treatment provided.Attachments: 16:11 [facility] Payment Agreement lg 08/01 12:16 T-Sheet-- Draft Copy gb Chart Complete MTDD
--- NOTE | 2016-08-02 22:43 | EDDOCDS ---
Physician Documentation [facility] Name: Spring Sample Age: 36 yrs Sex: Female : 1980 Arrival Date: 07/31/2016 Time: 12:57 Bed I7 / 29 Private MD: Disposition: 07/31/16 18:27 Hospitalization ordered by Sung Ferris for Inpatient Admission. Preliminary diagnosis are Upper abdominal pain, unspecified, Hematemesis. - Bed requested for 4 [place]. - Status is Inpatient Admission. dsf - Condition is Stable. - Problem is new. - Symptoms are unchanged. Historical: - Allergies: no known allergies; - Home Meds: 1. Ambien 10 mg Oral tab 1 tab once daily (Last dose: 07/30/2016) 2. citalopram 40 mg Oral tab 1 tab once daily (Last dose: 07/30/2016) 3. melatonin 10 mg Oral tab nightly (Last dose: Unknown) 4. Seroquel 200 mg Oral tab 1 tab nightly (Last dose: Unknown) 5. [place] 5-325 mg Oral tab 2 tabs every 4 hours ran out 6. Senna Plus 8.6-50 mg oral tab 1 tabs twice a day (Last dose: 07/30/2016) 7. Percocet Unknown Oral every 4 hours ran out 07/30/16 - PMHx: Anxiety; Depression; PTSD; - PSHx: Cholecystectomy; - Social history: Smoking status: Patient states former smoker of tobacco. No barriers to communication noted, The patient speaks fluent [place]. - Family history: Not pertinent. - : The pt / caregiver states he / she is not on anticoagulants. Home medication list is obtained from the patient, [employer] import data. - Exposure Risk Screening:: None identified. 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 5 in. (165.10 cm) (R); Pain 10/10; 14:25 Pain 8/10; kr3 18:43 BP 98 / 59; Pulse 105; Resp 18; Temp 96.9; Pulse Ox 99% ; Pain 10/10; ajs 21:36 BP 114 / 64; Pulse 86; Resp 16; Temp 98.4; Pulse Ox 99% ; Pain 9/10; ajs 13:14 Body Mass Index 27.46 (74.84 kg, 165.10 cm) dsf MDM: 13:33 Ondansetron 4 mg IVP once ordered. cc10 13:33 ketorolac 30 mg IVP once ordered. cc10 13:33 IV Saline Lock ordered. cc10 13:33 Undress patient appropriately for examination ordered. cc10 13:34 Basic Metabolic Profile Ordered. EDMS 13:34 CBC with Diff Ordered. EDMS 13:34 Lipase Ordered. EDMS 13:34 Liver Profile Ordered. EDMS 13:34 Urinalysis Ordered. EDMS 13:35 NOTHING BY MOUTH+DIET ordered. EDMS 13:36 Abdomen, Flat\E\Upright,PA Chest Ordered. EDMS 14:30 Basic Metabolic Profile Reviewed. cc10 14:30 CBC with Diff Reviewed. cc10 14:30 Liver Profile Reviewed. cc10 14:30 Lipase Reviewed. cc10 14:30 Abdomen, Flat\E\Upright,PA Chest Reviewed. cc10 14:59 Financial registration complete. lg 15:00 Metoclopramide 10 mg IV at 40 mg/hr once over 15 mins ordered. cc10 15:00 GI Cocktail - (Alum-Mag Hydroxide-Simeth 30 ml, Lidocaine 10 ml, Hyoscyamine 10 ml) PO cc10 once; Pre-mixed 50mL unit dose ordered. 15:21 Urinalysis Reviewed. cc10 16:11 [facility] Payment Agreement was scanned into Pov[employer] and attached to record. lg 16:55 ABD US: Limited Ordered. EDMS 16:57 ED course: DR FERRIS IN TO EVAL PATIENT, WOULD LIKE ABD US TO R/O INCARCERATED FAT ck7 HERNIA OF THE EPIGASTRIC PORT SITE, WOULD LIKE CONSULT CALL PLACED WHEN RESULTS AVAILABLE. 17:05 GI Cocktail - (Alum-Mag Hydroxide-Simeth 30 ml, Lidocaine 10 ml, Hyoscyamine 10 ml) PO dsf once; Pre-mixed 50mL unit dose ordered. 18:27 ED course: PT WENT FOR US, REPORT FINALIZED, JUST CONSULT WAS PLACED TO DR FERRIS, ck7 PT HAD EPISODE OF EMESIS, BROWN IN COLOR, POSITIVE FOR HEME. US RESULTS AND EMESIS ADVISED TO DR FERRIS, PT DID NOT TAKE GI COCKTAIL WHEN ORDERED FOR THE SECOND TIME. DR FERRIS WILL ADMIT PT AND DO UPPER GI SCOPE TOMORROW, POSSIBLE BLEEDING ULCER. PT AGREEABLE TO ADMISSION. 18:28 BED REQUEST+ADM ordered. EDMS 18:40 Admission / Observation Status ordered. EDMS 18:40 NPO DIET ordered. EDMS 18:46 morphine 2 mg IVP once ordered. kr3 19:33 COMPLETE BLOOD COUNT Ordered. EDMS 19:33 COMPLETE COMPHRENSIVE METABOLI Ordered. EDMS 19:33 MAGNESIUM LEVEL Ordered. EDMS 19:33 LIPASE Ordered. EDMS 20:49 Ondansetron 4 mg IVP once; admission order ordered. dsf 21:38 morphine 2 mg IVP once; admission order ordered. dsf 08/01 12:16 T-Sheet-- Draft Copy was scanned into Povio and attached to record. gb 12:16 PCR was scanned into Povio and attached to record. gb Administered Medications: 07/31 13:40 Drug: Ondansetron 4 mg [ondansetron HCl 2 mg/mL intravenous solution (2 mL)] Route: dsf IVP; Site: right antecubital; 13:40 Drug: ketorolac 30 mg [ketorolac 30 mg/mL (1 mL) injection solution (1 mL)] Route: IVP; dsf Site: right antecubital; 14:25 Follow up: Pain 8/10 Adult; Response: Pain is decreased kr3 15:13 Drug: Metoclopramide 10 mg [metoclopramide 5 mg/mL injection solution] Route: IV; Rate: dsf 40 mg/hr; Infused Over: 15 mins; Site: right antecubital; 18:58 Follow up: IV Status: Completed infusion; IV Intake: 10ml dsf 15:13 Not Given (Patient Refused): GI Cocktail - (Alum-Mag Hydroxide-Simeth Suspension 225 dsf mg-200 mg-25 mg/5 mL 30 ml, Lidocaine Liquid 2 % 10 ml, Hyoscyamine Liquid 10 ml) PO once; Pre-mixed 50mL unit dose 17:18 Not Given (Patient Refused): GI Cocktail - (Alum-Mag Hydroxide-Simeth Suspension 225 dsf mg-200 mg-25 mg/5 mL 30 ml, Lidocaine Liquid 2 % 10 ml, Hyoscyamine Liquid 10 ml) PO once; Pre-mixed 50mL unit dose 18:49 Drug: morphine 2 mg [morphine 2 mg/mL intravenous cartridge (1 mL)] Route: IVP; Site: kr3 right antecubital; 20:52 Drug: Ondansetron 4 mg [ondansetron HCl 2 mg/mL intravenous solution (2 mL)] Route: dsf IVP; Site: right antecubital; 21:38 Drug: morphine 2 mg [morphine 2 mg/mL intravenous cartridge (1 mL)] Route: IVP; Site: dsf right antecubital; 21:42 Follow up: Response: Pt left department before re-evaluation is appropriate dsf Signatures: Dispatcher [employer] EDMS Jossie Candelaria, Reg Reg gb Eder Jaffe, Reg Reg lg Janak Gill, Footwear Machinery Instructor Unit ml3 Florecita Brown,DINESH RN kr3 Debi Vigil RN RN dsf Edison Valencia, RPA-C [id number] Ba Soliman, PA-C PA-C cc10 The chart was reviewed and I authenticate all verbal orders and agree with the evaluation and treatment provided.Attachments: 16:11 [facility] Payment Agreement lg 08/01 12:16 T-Sheet-- Draft Copy gb Chart Complete MTDD
--- NOTE | 2016-08-02 22:44 | EDDOCDS ---
Nurse's Notes [facility] Name: Spring Sample Age: 36 yrs Sex: Female : 1980 Arrival Date: 07/31/2016 Time: 12:57 Bed I7 / 29 Private MD: Diagnosis: Upper abdominal pain, unspecified;Hematemesis Presentation: 07/31 13:00 Presenting complaint: Patient states: abdominal pain all over stomach for over 1 week. kr3 Recent admission for abdominal and back pain. Risk factors: the patient reports no vaginal bleeding. Adult Sepsis Screening: The patient does not have new or worsening altered mentation. Patient's respiratory rate is less than 22. Systolic blood pressure is greater than 100. Patient has a qSOFA score of 0- Negative Sepsis Screen. Suicide/Homicide risk assessment- the patient denies having any suicidal and/or homicidal ideations and does not present with any other emotional, behavioral or mental health complaints. Status: The patient is a dependent. Transition of care: patient was not received from another setting of care. 13:00 Method Of Arrival: Ambulance kr3 13:00 Acuity: BULMARO Level 3 kr3 Triage Assessment: 13:04 General: Appears distressed, Behavior is cooperative, crying. Pain: Location: abdomen kr3 Pain currently is 10 out of 10 on a pain scale. HIV screening NA for this visit Offered previously. The patient is triaged at the bedside. See Assessment in Nurses Notes section of ED record. Neurological: Level of Consciousness is awake, alert. Respiratory: Respiratory effort is even, unlabored. GI: Abdomen is obese, Abd is soft X 4 quads Abd is tender to palpation X 4 quads. Reports nausea. GI: Last BM was July 31, 2016. at 03:30. Reports blood in stool today. : Reports voiding small amounts Denies discharge, vaginal bleeding. Derm: Skin is normal. 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 Ambien 10 mg Oral tab 1 tab once daily (Last dose: 07/30/2016) 2. citalopram 40 mg Oral tab 1 tab once daily (Last dose: 07/30/2016) 3. melatonin 10 mg Oral tab nightly (Last dose: Unknown) 4. Seroquel 200 mg Oral tab 1 tab nightly (Last dose: Unknown) 5. [place] 5-325 mg Oral tab 2 tabs every 4 hours ran out 6. Senna Plus 8.6-50 mg oral tab 1 tabs twice a day (Last dose: 07/30/2016) 7. Percocet Unknown Oral every 4 hours ran out 07/30/16 - PMHx: Anxiety; Depression; PTSD; - PSHx: Cholecystectomy; - Social history: Smoking status: Patient states former smoker of tobacco. No barriers to communication noted, The patient speaks fluent Lithuanian. - Family history: Not pertinent. - : The pt / caregiver states he / she is not on anticoagulants. Home medication list is obtained from the patient, [employer] import data. - Exposure Risk Screening:: None identified. Screenin:26 Screening information is obtained from the patient. Fall risk: No risks identified. kr3 Assistance ADL's: requires no assistance with activities of daily living. Abuse/DV Screen: The patient / caregiver reports he/she is: not in a situation that causes fear, pain or injury. Nutritional screening: No deficits noted. Advance Directives: Currently, there is no health care proxy. home support is adequate. 20:41 Primary language is Lithuanian. ajs Assessment: 13:28 Reassessment: in room and patient calmer. Reports has had nausea for over 3 kr3 weeks and has lost 10 pounds. 14:25 Reassessment: Patient appears in no apparent distress at this time. resting on kr3 stretcher, and child in room. Pain: Location: abdomen Pain currently is 8 out of 10 on a pain scale. 14:45 Reassessment: reports pain and nausea are returning, beginning to cry, provider aware. kr3 15:13 General: pt crying hysterically stating we don't know what we are doing. pt requesting dsf pain medication and nausea medication. pt informed Dr. ferris wanted her to try the Reglan and GI cocktail. Pt states she is going to cause she can not keep fluids or food down. Pt was informed lets try the Reglan then if the nausea is better to try the GI cocktail. Pt states "I'm not drinking that shit" Pt states that the staff here treats her like shit and she has been here four times and they do not know what's wrong with her . 15:20 General: pt refusing to straighten arm so Reglan can infuse. pt states she will dsf straighten her arm after the doctor comes in. 15:31 General: this insurance underwriter sales went in to ask pt to straighten arm so the Reglan could infuse. pt dsf states "no not until my doctor comes in" Pt asked when the doctor would be in. Pt informed around 4 PM. Pt states "the last nurse told me an hour 15 min ago you are all liars get out of my room" PFS Carolina Linder informed . 16:41 Reassessment: Dr Gramajo here to evaluate patient. kr3 17:18 General: Pt took one sip of the GI cocktail and states she can not drink it. Dr. ferris dsf present in the room and told pt what the plan of care was. pt awaiting to go to ultrasound . 18:21 Reassessment: vomited large amount, Gastroccult was positive and provider notified and kr3 Dr Ferris notified. Patient informed that admission was pending. 18:49 Reassessment: Patient appears in no apparent distress at this time. pain 10/10 with kr3 nausea. PAtient was instructed of NPO status and water was taken away. 19:49 General: Appears in no apparent distress, Behavior is crying. Pain: Location: abdomen. dsf Neurological: Level of Consciousness is awake, alert. Cardiovascular: No deficits noted. Respiratory: No deficits noted. GI: Reports epigastric pain, lower abdominal pain, upper abd pain, nausea. Derm: Skin is pink, warm & dry. 21:38 Adult Sepsis Screening: The patient does not have new or worsening altered mentation. dsf Patient's respiratory rate is less than 22. Systolic blood pressure is greater than 100. Patient has a qSOFA score of 0- Negative Sepsis Screen. General: Appears in no apparent distress, Behavior is tearful. Pain: Location: abdomen Pain currently is 9 out of 10 on a pain scale. Quality of pain is described as sharp. Neurological: Level of Consciousness is awake, alert, Oriented to person, place, time. Cardiovascular: Capillary refill < 3 seconds Heart tones S1 S2 present. Respiratory: Airway is patent Respiratory effort is even, unlabored, Respiratory pattern is regular, symmetrical, Breath sounds are clear bilaterally. GI: Abdomen is non- distended Bowel sounds hyperactive in right upper quadrant, left upper quadrant, right lower quadrant and left lower quadrant Abd is soft X 4 quads Abd is tender to palpation in epigastric area, right upper quadrant, left upper quadrant, right lower quadrant and left lower quadrant Reports epigastric pain, lower abdominal pain, upper abd pain, nausea. Derm: Skin is pink, warm & dry. Vital Signs: 13:14 BP 106 / 55; Pulse 86; Resp 16; Temp 98.3(O); Pulse Ox 100% ; Weight 74.84 kg (R); dsf Height 5 ft. 5 in. (165.10 cm) (R); Pain 10/10; 14:25 Pain 8/10; kr3 18:43 BP 98 / 59; Pulse 105; Resp 18; Temp 96.9; Pulse Ox 99% ; Pain 10/10; ajs 21:36 BP 114 / 64; Pulse 86; Resp 16; Temp 98.4; Pulse Ox 99% ; Pain 9/10; ajs 13:14 Body Mass Index 27.46 (74.84 kg, 165.10 cm) dsf Vitals: 13:04 Log In Time N/A - ambulance arrival. kr3 ED Course: 12:58 Patient visited by Kenia Burton, Showcase Trimmer. deg 12:58 Patient moved to Waiting deg 12:58 Patient moved to I deg 13:00 Ba Soliman PA-C is [facility]. cc10 13:00 Cam Desir MD is Attending Physician. cc10 13:02 Triage Initiated kr3 13:28 Patient visited by Florecita Brown RN. kr3 13:28 Inserted saline lock: 20 gauge in right antecubital area The patient tolerated the kr3 procedure well. 13:29 The patient / caregiver is instructed regarding the plan of care and ED course. Patient kr3 has correct armband on for positive identification. Placed in gown. Bed in low position. Call light in reach. Side rails up X 1. 13:37 Patient visited by Ba Soliman PA-C. cc10 13:37 Patient visited by Ba Soliman PA-C. cc10 13:40 Basic Metabolic Profile Sent. dsf 13:40 CBC with Diff Sent. dsf 13:40 Lipase Sent. dsf 13:40 Liver Profile Sent. dsf 14:25 Urinalysis Sent. kr3 14:28 Patient visited by Florecita Brown RN. kr3 14:28 Abdomen, Flat\\E\\Upright,PA Chest Returned. EDMS 14:35 [facility] is Referral Physician. cc10 15:20 Patient visited by Debi Vigil,DINESH. dsf 15:33 Patient visited by Debi Vigil RN. dsf 16:02 PHCP role handed off by Ba Soliman PA-C ck7 16:02 Edison Valencia RPA-C is PHCP. ck7 16:11 [facility] Payment Agreement was scanned into [email or web address] and attached to record. lg 16:40 Patient visited by Florecita Brown RN. kr3 17:19 Patient visited by Debi Vigil RN. dsf 18:14 Patient visited by Edison Valencia RPA-C. ck7 18:21 ABD US: Limited Returned. EDMS 18:26 Sung Ferris DO is Hospitalizing Provider. ck7 20:41 Patient visited by Chante Escobedo. ajs 21:37 Patient visited by Chante Escobedo. ajs 21:41 No procedures done that require assistance. dsf 08/01 12:16 T-Sheet-- Draft Copy was scanned into [email or web address] and attached to record. gb 12:16 PCR was scanned into [email or web address] and attached to record. gb Administered Medications: 07/31 13:40 Drug: Ondansetron 4 mg [ondansetron HCl 2 mg/mL intravenous solution (2 mL)] Route: dsf IVP; Site: right antecubital; 13:40 Drug: ketorolac 30 mg [ketorolac 30 mg/mL (1 mL) injection solution (1 mL)] Route: IVP; dsf Site: right antecubital; 14:25 Follow up: Pain 8/10 Adult; Response: Pain is decreased kr3 15:13 Drug: Metoclopramide 10 mg [metoclopramide 5 mg/mL injection solution] Route: IV; Rate: dsf 40 mg/hr; Infused Over: 15 mins; Site: right antecubital; 18:58 Follow up: IV Status: Completed infusion; IV Intake: 10ml dsf 15:13 Not Given (Patient Refused): GI Cocktail - (Alum-Mag Hydroxide-Simeth Suspension 225 dsf mg-200 mg-25 mg/5 mL 30 ml, Lidocaine Liquid 2 % 10 ml, Hyoscyamine Liquid 10 ml) PO once; Pre-mixed 50mL unit dose 17:18 Not Given (Patient Refused): GI Cocktail - (Alum-Mag Hydroxide-Simeth Suspension 225 dsf mg-200 mg-25 mg/5 mL 30 ml, Lidocaine Liquid 2 % 10 ml, Hyoscyamine Liquid 10 ml) PO once; Pre-mixed 50mL unit dose 18:49 Drug: morphine 2 mg [morphine 2 mg/mL intravenous cartridge (1 mL)] Route: IVP; Site: kr3 right antecubital; 20:52 Drug: Ondansetron 4 mg [ondansetron HCl 2 mg/mL intravenous solution (2 mL)] Route: dsf IVP; Site: right antecubital; 21:38 Drug: morphine 2 mg [morphine 2 mg/mL intravenous cartridge (1 mL)] Route: IVP; Site: dsf right antecubital; 21:42 Follow up: Response: Pt left department before re-evaluation is appropriate dsf Intake: 18:58 IV: 10.00ml; Total: 10.00ml. dsf Order Results: Lab Order: Basic Metabolic Profile; SPEC'M 07/31/16 13:41 Test: GLUCOSE, FASTING; Value: 85; Range: 70-105; Units: MG/DL; Status: F Test: BLOOD UREA NITROGEN; Value: 25; Range: 7-18; Abnormal: High; Units: MG/DL; Status: F Test: CREATININE FOR GFR; Value: 0.61; Range: 0.55-1.02; Units: MG/DL; Status: F Test: SODIUM LEVEL; Range: 136-145; Units: MEQ/L; Status: I Test: POTASSIUM SERUM; Range: 3.5-5.1; Units: MEQ/L; Status: F Test: CHLORIDE LEVEL; Range: 98-107; Units: MEQ/L; Status: I Test: CARBON DIOXIDE LEVEL; Range: 21-32; Units: MEQ/L; Status: I Test: ANION GAP; Range: 8-16; Units: MEQ/L; Status: I Test: CALCIUM LEVEL; Range: 8.5-10.1; Units: MG/DL; Status: I Test Note: ; Testing was performed on a SLIGHTLY hemolyzed specimen. Suggest recollection of specimen for more accurate test results. Test: GLOMERULAR FILTRATION RATE; Value: > 60.0; Range: >60; Status: F Test: SODIUM LEVEL; Value: 139; Range: 136-145; Units: MEQ/L; Status: F Test: POTASSIUM SERUM; Range: 3.5-5.1; Units: MEQ/L; Status: F Test: CHLORIDE LEVEL; Value: 106; Range: 98-107; Units: MEQ/L; Status: F Test: CARBON DIOXIDE LEVEL; Value: 23; Range: 21-32; Units: MEQ/L; Status: F Test: ANION GAP; Value: 10; Range: 8-16; Units: MEQ/L; Status: F Test: CALCIUM LEVEL; Value: 8.6; Range: 8.5-10.1; Units: MG/DL; Status: F Test Note: ; Units are mL/min/1.73 m2 Chronic Kidney Disease Staging per NKF: Stage I & II GFR >=60 Normal to Mildly Decreased Stage III GFR 30-59 Moderately Decreased Stage IV GFR 15-29 Severely Decreased Stage V GFR <15 Very Little GFR Left ESRD GFR <15 on SKIING INSTRUCTOR Lab Order: CBC with Diff; SPEC'M 07/31/16 13:41 Test: WHITE BLOOD COUNT; Value: 13.3; Range: 4.0-10.0; Abnormal: Above high normal; Units: K/mm3; Status: F Test: RED BLOOD COUNT; Value: 3.50; Range: 4.00-5.40; Abnormal: Below low normal; Units: M/mm3; Status: F Test: HEMOGLOBIN; Value: 10.3; Range: 12.0-16.0; Abnormal: Below low normal; Units: g/dl; Status: F Test: HEMATOCRIT; Value: 32.9; Range: 36.0-47.0; Abnormal: Below low normal; Units: %; Status: F Test: MEAN CORPUSCULAR VOLUME; Value: 93.9; Range: 80.0-96.0; Units: fl; Status: F Test: MEAN CORPUSCULAR HEMOGLOBIN; Value: 29.5; Range: 27.0-33.0; Units: pg; Status: F Test: MEAN CORPUSCULAR HGB CONC; Value: 31.4; Range: 32.0-36.5; Abnormal: Below low normal; Units: g/dl; Status: F Test: RED CELL DISTRIBUTION WIDTH; Value: 13.4; Range: 11.5-14.5; Units: %; Status: F Test: PLATELET COUNT, AUTOMATED; Value: 608; Range: 150-450; Abnormal: Above high normal; Units: k/mm3; Status: F Test: NEUTROPHILS %; Value: 78.9; Range: 36.0-66.0; Abnormal: Above high normal; Units: %; Status: F Test: LYMPH %; Value: 13.8; Range: 24.0-44.0; Abnormal: Below low normal; Units: %; Status: F Test: MONO %; Value: 4.6; Range: 0.0-5.0; Units: %; Status: F Test: EOS %; Value: 1.0; Range: 0.0-3.0; Units: %; Status: F Test: BASO %; Value: 0.3; Range: 0.0-1.0; Units: %; Status: F Test: LARGE UNSTAINED CELL %; Value: 1.5; Range: 0.0-4.0; Units: %; Status: F Test: NEUTROPHILS #; Value: 10.5; Range: 1.8-7.7; Abnormal: Above high normal; Units: K/mm3; Status: F Test: LYMPH #; Value: 1.8; Range: 1.5-4.5; Units: K/mm3; Status: F Test: MONO #; Value: 0.6; Range: 0.0-0.8; Units: K/mm3; Status: F Test: EOS #; Value: 0.1; Range: 0.0-0.50; Units: K/mm3; Status: F Test: BASO #; Value: 0.0; Range: 0.0-0.2; Units: K/mm3; Status: F Test: LARGE UNSTAINED CELL #; Value: 0.2; Range: 0.0-0.4; Units: K/mm3; Status: F Lab Order: Lipase; SPEC'M 07/31/16 13:41 Test: LIPASE; Value: 94; Range: 73-393; Units: U/L; Status: F Lab Order: Liver Profile; SPEC'M 07/31/16 13:41 Test: AST/SGOT; Value: 29; Range: 15-37; Units: U/L; Status: F Test: ALT/SGPT; Value: 18; Range: 12-78; Units: U/L; Status: F Test: ALKALINE PHOSPHATASE; Value: 68; Range: 45-117; Units: U/L; Status: F Test: BILIRUBIN,TOTAL; Value: 0.5; Range: 0.2-1.0; Units: MG/DL; Status: F Test: BILIRUBIN,DIRECT; Value: < 0.1; Range: 0.0-0.2; Units: MG/DL; Status: F Test: TOTAL PROTEIN; Value: 6.6; Range: 6.4-8.2; Units: GM/DL; Status: F Test: ALBUMIN; Value: 3.1; Range: 3.2-5.2; Abnormal: Below low normal; Units: GM/DL; Status: F Test: ALBUMIN/GLOBULIN RATIO; Value: 0.89; Range: 1.00-1.93; Abnormal: Below low normal; Status: F Lab Order: Urinalysis; SPEC'M 07/31/16 14:24 Test: APPEARANCE, URINE; Value: HAZY; Range: CLEAR; Status: F Test: COLOR, URINE; Value: YELLOW; Range: YELLOW; Status: F Test: PH,URINE; Value: 6.0; Range: 5.0-9.0; Units: UNITS; Status: F Test: SPECIFIC GRAVITY URINE AUTO; Value: 1.025; Range: 1.002-1.035; Status: F Test: PROTEIN, URINE AUTO; Value: NEGATIVE; Range: NEGATIVE; Units: mg/dL; Status: F Test: GLUCOSE, URINE (UA) AUTO; Value: NEGATIVE; Range: NEGATIVE; Units: mg/dL; Status: F Test: KETONE, URINE AUTO; Value: 2+; Range: NEGATIVE; Abnormal: Above high normal; Units: mg/dL; Status: F Test: UROBILINOGEN, URINE AUTO; Value: 2.0; Range: 0.0-2.0; Abnormal: Above high normal; Units: mg/dL; Status: F Test: BILIRUBIN, URINE AUTO; Value: NEGATIVE; Range: NEGATIVE; Status: F Test: NITRITE, URINE AUTO; Value: NEGATIVE; Range: NEGATIVE; Status: F Test: LEUKOCYTE ESTERASE, URINE AUTO; Value: NEGATIVE; Range: NEGATIVE; Status: F Test: BLOOD, URINE BLOOD; Value: NEGATIVE; Range: NEGATIVE; Status: F Test: WBC, URINE AUTO; Value: 2; Range: 0-3; Units: /HPF; Status: F Test: RBC, URINE AUTO; Value: 1; Range: 0-3; Units: /HPF; Status: F Test: BACTERIA, URINE AUTO; Value: NEGATIVE; Range: NEGATIVE; Status: F Test: SQUAMOUS EPITHELIAL CELL UR AU; Value: 1; Range: 0-6; Units: /HPF; Status: F Test: MUCUS, URINE; Value: SMALL; Range: NEGATIVE; Status: F Test: HYALINE CAST, URINE AUTO; Value: 0; Range: 0-1; Units: /LPF; Status: F Test: AMORPHOUS SEDIMENT; Value: SMALL; Range: NEGATIVE; Abnormal: Above high normal; Status: F Radiology Order: Abdomen, Flat\\E\\Upright,PA Chest Test: Abdomen, Flat\\E\\Upright,PA Chest REASON FOR EXAMINATION: Abdomen Pain; Clinical: Acute abdominal pain.; ; Technique: Upright view of the chest with supine and upright views of the; abdomen and pelvis.; ; Findings: Frontal upright view of the chest demonstrates no acute; cardiopulmonary process or free air below the diaphragm to suspect; pneumoperitoneum. Supine and upright views of the abdomen and pelvis demonstrate; nonspecific bowel gas pattern without obstruction or perforation. No; organomegaly. No abnormal calcifications. Skeletal structures normal for age.; ; Impression:; Nonspecific bowel gas pattern.; ; ; Signed by; Yao Ruiz MD 07/31/2016 02:14 P; Radiology Order: ABD US: Limited Test: ABD US: Limited REASON FOR EXAMINATION: R/O INCAR FAT HERNIA, EPIGASTRIC PORT SITE S/P LAP AMY; Clinical: Pain at the site of prior laparoscopic cholecystectomy trocar site.; ; Technique: Real time pompa scale and color evaluation using linear high frequency; transducer.; ; Findings:; Directed ultrasound examination at the site of tenderness in the midline; epigastrium demonstrates what appears to be a fat filled tract which may also; contain small amount of complex fluid. Color evaluation demonstrates no; associated vascularity and no evidence for drainable collection/abscess. No; definite hernia.; ; Impression:; Small amount of fat and possible mixed complex fluid at the site of trocar from; prior laparoscopic cholecystectomy.; ; ; Signed by; Yao Ruiz MD 07/31/2016 05:42 P; Outcome: 14:35 Discharge ordered by Provider. cc10 18:22 Ultrasound Study completed. kr3 18:27 Decision to Hospitalize by Provider. ck7 20:06 Admission hand-off: Report called to Ariela MONTIEL. dsf 21:41 Discharge Assessment: Patient awake, alert and oriented x 3. No cognitive and/or dsf functional deficits noted. Patient verbalized understanding of disposition instructions. patient administered narcotics - yes. Patient was admitted to the hospital or transferred to another facility. The following High Risk Discharge criteria are identified: None. Admitted to Med/Surg accompanied by tech, via stretcher, with chart. Condition: stable. Property :Personal belongings accompany Pt. 21:43 Patient left the ED. dsf Signatures: Dispatcher [employer] EDMS Kenia Burton, Showcase Trimmer Unit deg Jossie Candelaria, Reg Reg gb Eder Jaffe, Reg Reg lg Florecita Brown,RN RN kr3 Debi VigilRN RN dsf Chante Escobedo Christopher, RPA-C [id number] Ba Soliman, PA-C PA-C cc10 Chart Complete MTDD
[2016-08-03] MEDS: AMPICILLIN SOD/SULBACTAM SOD 3 GM in D5W MINI-BAG PLUS 100 ML IV SCH ×2 (01:46→06:07)
[2016-08-03] MEDS: KETOROLAC 30 MG/ML VIAL (J1885) IV PRN ×2 (01:50→14:15)
[2016-08-03 05:30] VITALS: BP 112/59
[2016-08-03 06:30] LABS: MEAN CORPUSCULAR HEMOGLOBIN 30.4 pg (27.0-33.0); MEAN CORPUSCULAR HGB CONC 33.6 g/dl (32.0-36.5); MEAN CORPUSCULAR VOLUME 90.6 fl (80.0-96.0); RED CELL DISTRIBUTION WIDTH 14.9 % (11.5-14.5); WHITE BLOOD COUNT 8.4 K/mm3 (4.0-10.0)
[2016-08-03 06:52] LABS: ALBUMIN 2.5 GM/DL (3.2-5.2); ALKALINE PHOSPHATASE 51 U/L (45-117); ALT/SGPT 11 U/L (12-78); AST/SGOT < 3 U/L (15-37); BILIRUBIN,TOTAL 0.6 MG/DL (0.2-1.0); CALCIUM LEVEL 8.4 MG/DL (8.5-10.1); CHLORIDE LEVEL 113 MEQ/L (98-107); CREATININE FOR GFR 0.59 MG/DL (0.55-1.02); GLUCOSE, FASTING 87 MG/DL (70-105); MAGNESIUM LEVEL 1.7 MG/DL (1.8-2.4); POTASSIUM SERUM 3.8 MEQ/L (3.5-5.1); SODIUM LEVEL 145 MEQ/L (136-145)
[2016-08-03 06:57] LABS: BLOOD UREA NITROGEN 7 MG/DL (7-18)
[2016-08-03 07:01] LABS: ANION GAP 8 MEQ/L (8-16); CARBON DIOXIDE LEVEL 24 MEQ/L (21-32)
[2016-08-03] MEDS: PANTOPRAZOLE 40MG TAB (PROTONIX) PO SCH ×2 (08:45→21:35)
[2016-08-03] MEDS: SUCRALFATE 1 GM TAB PO SCH ×4 (08:45→21:35)
[2016-08-03] MEDS: CitaloPRAM (CeleXA) 20 MG TAB PO SCH (08:45)
[2016-08-03] MEDS: MORPHINE 2 MG/ML 1ML SYRINGE IV PRN ×2 (08:51→12:19)
[2016-08-03] MEDS: CLARITHROMYCIN 250 MG TAB PO SCH ×2 (12:39→21:34)
[2016-08-03 14:00] VITALS: BP 148/83
[2016-08-03] MEDS ORDERED: PERCOCET 5MG/325MG TAB PO PRN (15:45)
[2016-08-03] MEDS: PERCOCET 5MG/325MG TAB PO PRN ×2 (17:19→21:36)
[2016-08-03] MEDS ORDERED: diphenhydrAMINE CREAM 30GM TOP PRN (20:45)
[2016-08-03] MEDS: GABAPENTIN 300 MG CAP PO SCH (21:34)
[2016-08-03] MEDS: zolPIDEM TARTRATE 10MG TAB PO SCH (21:35)
[2016-08-03] MEDS: QUEtiapine FUMARATE 200 MG TAB PO SCH (21:35)
[2016-08-03 22:00] VITALS: BP 109/55
[2016-08-04] MEDS: PERCOCET 5MG/325MG TAB PO PRN (05:41)
[2016-08-04 05:53] LABS: MEAN CORPUSCULAR HGB CONC 32.9 g/dl (32.0-36.5); RED CELL DISTRIBUTION WIDTH 15.6 % (11.5-14.5); WHITE BLOOD COUNT 9.4 K/mm3 (4.0-10.0)
[2016-08-04 06:00] VITALS: BP 109/58
[2016-08-04 06:13] LABS: ALBUMIN 2.6 GM/DL (3.2-5.2); ALKALINE PHOSPHATASE 58 U/L (45-117); ALT/SGPT 12 U/L (12-78); ANION GAP 7 MEQ/L (8-16); AST/SGOT 6 U/L (15-37); BILIRUBIN,TOTAL 0.8 MG/DL (0.2-1.0); BLOOD UREA NITROGEN 12 MG/DL (7-18); CALCIUM LEVEL 8.5 MG/DL (8.5-10.1); CARBON DIOXIDE LEVEL 28 MEQ/L (21-32); CHLORIDE LEVEL 109 MEQ/L (98-107); CREATININE FOR GFR 0.75 MG/DL (0.55-1.02); GLOMERULAR FILTRATION RATE > 60.0 (>60); GLUCOSE, FASTING 85 MG/DL (70-105); MAGNESIUM LEVEL 1.8 MG/DL (1.8-2.4); SODIUM LEVEL 144 MEQ/L (136-145); TOTAL PROTEIN 5.5 GM/DL (6.4-8.2)
[2016-08-04] MEDS: CitaloPRAM (CeleXA) 20 MG TAB PO SCH (08:25)
[2016-08-04] MEDS: PANTOPRAZOLE 40MG TAB (PROTONIX) PO SCH (08:25)
[2016-08-04] MEDS: CLARITHROMYCIN 250 MG TAB PO SCH (08:25)
[2016-08-04] MEDS: SUCRALFATE 1 GM TAB PO SCH (08:25)
[2016-08-04] MEDS ORDERED: PERCOCET PO (09:16)
[2016-08-04] MEDS ORDERED: PANT40TA2 PO (09:16)
[2016-08-04] MEDS ORDERED: SUCR1TA PO (09:16)
--- NOTE | 2016-08-05 13:37 | DSES ---
DATE OF ADMISSION: 07/31/2016 DATE OF DISCHARGE: 08/04/2016 ADMISSION DIAGNOSIS: Hematemesis, epigastric pain. DISCHARGE DIAGNOSIS: Bleeding duodenal ulcer. HOSPITAL COURSE: The patient is a 36-year-old female status post cholecystectomy on 07/22/2016. Postoperatively, she had lots of nausea, vomiting and epigastric pain. The pain kept getting persistently worse. She was seen in the emergency room (ER) about four times over the past week and a half. She finally came in this time after I had talked to her primary doctor to send her here to [facility]. I evaluated her in the ER. CT scans and ultrasound were nonspecific; however, she did have point tenderness in the epigastric area radiating to her back. Therefore, due to concerns of possible ulceration versus gastritis or duodenitis, I decided to admit her with plan for an esophagogastroduodenoscopy (EGD) the following morning of 08/01/2016. Before she even left the emergency room, she had a little bit of bloody vomiting. No more episodes overnight. However, her hemoglobin did drop by 2 grams by in the next morning. I did the scope on the , which did show a large duodenal ulcer at 2-1/2 cm in diameter with a visible vessel in the center of it that was not actively bleeding. In the recovery room, she did have a large bloody bowel movement. I gave her 2 units of blood and her hemoglobin continued to drop. No more acute signs of bleeding, but she was given another 2 units, for a total 4 units of blood. Her hemoglobin stabilized around 10. Over the weekend, she was started on a clear liquid diet. Her abdominal pain slowly improved on Carafate and Protonix. I had a further discussion with her on the morning of the as to the causes of this and she revealed that she had been drinking about nine cups of coffee a day. That is possibly the culprit of this. The plan was to discharge her home on the . I advised her to stay away from any caffeine or any alcohol. She does not currently drink any alcohol. She is also a nonsmoker. I told her to stay away from any [id number] medications and only to take the medications necessary to relieve her pain. I also will check a gastrin level to evaluate for possible gastrinoma and await pathology results to determine if she has any H. pylori that is causing her symptoms. Due to her feeling better, she decided to go home. The plan is to discharge home today on the . She will follow up me in the office in 2 weeks. We will go over her pathology, check on her gastrin level and determine further treatment from there.
== END 2016-08-04 10:27 | disposition home or self-care (01) ==
LOC: M ED 12:57 → M ED INP 18:25 → INTOOBSV 18:25 → M MSPAV 21:48
PROVIDERS: ADMIT Surgery; ATTEND Surgery
DX: K26.4 Chronic or unspecified duodenal ulcer with hemorrhage (principal); K92.0 Hematemesis; F43.10 Post-traumatic stress disorder, unspecified; Z79.899 Other long term (current) drug therapy; Z87.891 Personal history of nicotine dependence
CPT/HCPCS: 36415; 36430; 49329; 74022; 76705; 80048; 80053; 80076; 81001; 83690; 83735; 85014; 85018; 85025; 85027; 86850; 86900; 86901; 86920; 88305; 96365; 96366; 96375; 96376; 99285; C9113; J1885; J2405; J2765; J3010; P9016

== ENCOUNTER → 2016-09-24 | Outpatient (CLI) | payer OTHER ==
[~2016-09-24] VITALS: Ht 167.6 cm; Wt 68.0 kg
[~2016-09-24] MED LIST changes: +LIDOCAINE 2% INJ 100 MG/5 ML SDV (FOR ANES.) As Ordered ONE; +NS 1,000 ML IV SCH; +PANT40TA2 PO; +PROPOFOL 200 MG/20 ML VIAL As Ordered ONE; +SENN8.6T54 PO; +SUCR1TA PO
--- NOTE | 2016-09-24 10:35 | ROOR ---
Patient Name: Spring Smith Procedure Date: 09/24/2016 10:19 AM Date of : 1980 Age: 36 Room: [facility] Gender: Female Note Status: Finalized Procedure: Upper GI endoscopy Indications: Follow-up of duodenal ulcer with hemorrhage Providers: DO Thi Oconnor MD: CALEB ELLIS MD Requesting Provider: Medicines: Propofol per Anesthesia Complications: No immediate complications. Estimated blood loss: None. Procedure: Pre-Anesthesia Assessment: - Prior to the procedure, a History and Physical was performed, and patient medications and allergies were reviewed. The patient is competent. The risks and benefits of the procedure and the sedation options and risks were discussed with the patient. All questions were answered and informed consent was obtained. Patient identification and proposed procedure were verified by the physician, the nurse, the knifeman and the cephalometric technician in the pre-procedure area. Mental Status Examination: normal. Airway Examination: normal oropharyngeal airway and neck mobility. Respiratory Examination: clear to auscultation. CV Examination: normal. Prophylactic Antibiotics: The patient does not require prophylactic antibiotics. Prior Anticoagulants: The patient has taken no previous anticoagulant or antiplatelet agents. ASA Grade Assessment: II - A patient with mild systemic disease. After reviewing the risks and benefits, the patient was deemed in satisfactory condition to undergo the procedure. The anesthesia plan was to use monitored anesthesia care (MAC). Immediately prior to administration of medications, the patient was re-assessed for adequacy to receive sedatives. The heart rate, respiratory rate, oxygen saturations, blood pressure, adequacy of pulmonary ventilation, and response to care were monitored throughout the procedure. The physical status of the patient was re-assessed after the procedure. The Endoscope was introduced through the mouth, and advanced to the third part of duodenum. The upper GI endoscopy was accomplished without difficulty. The patient tolerated the procedure well. Findings: Scattered mild inflammation characterized by congestion (edema) and erosions was found in the entire examined stomach. Biopsies were taken with a cold forceps for Helicobacter pylori testing. Estimated blood loss: none. Scattered mild inflammation characterized by adherent blood and congestion (edema) was found in the first portion of the duodenum. Impression: - Gastritis. Biopsied. - Duodenitis. Recommendation: - Patient has a contact number available for emergencies. The signs and symptoms of potential delayed complications were discussed with the patient. Return to normal activities tomorrow. Written discharge instructions were provided to the patient. - Telephone my office for pathology results in 1 week. - Return to my office in 1 week. Sung Ferris DO 09/24/2016 10:35:14 AM This report has been signed electronically. Number of Addenda: 0 Note Initiated On: 09/24/2016 10:19 AM Estimated Blood Loss: Estimated blood loss: none.
[2016-09-24 11:00] VITALS: BP 124/70
== END | disposition home or self-care (01) ==
LOC: M OPP 08:59
PROVIDERS: ATTEND Surgery
DX: Z09 Encounter for follow-up examination after completed treatment for conditions other than malignant neoplasm (principal); K26.4 Chronic or unspecified duodenal ulcer with hemorrhage; K29.80 Duodenitis without bleeding; K29.70 Gastritis, unspecified, without bleeding; F41.9 Anxiety disorder, unspecified; F32.9 Major depressive disorder, single episode, unspecified; F43.10 Post-traumatic stress disorder, unspecified; Z79.899 Other long term (current) drug therapy

== ENCOUNTER 2017-01-13 22:31 | Inpatient (IN) | payer OTHER ==
[~2017-01-13] VITALS: Ht 165.1 cm; Wt 58.4 kg
[~2017-01-13 22:31] MED LIST changes: +CIPR-249 PO; -CIPR500T89 PO; -COLA100C PO; +COLA100C5 PO; +GABA-282 PO; -GABA300C3 PO; -LIDOCAINE 2% INJ 100 MG/5 ML SDV (FOR ANES.) As Ordered ONE; -MELA0.02 PO; +MELA3TAB49 PO; -NS 1,000 ML IV SCH; -PROPOFOL 200 MG/20 ML VIAL As Ordered ONE
[2017-01-13] MEDS ORDERED: diphenhydrAMINE INJ 50MG/ML VIAL (J1200) IM ONE (22:45)
[2017-01-13] MEDS ORDERED: HALOPERIDOL 5 MG/ML VIAL (J1630) IM ONE (22:45)
[2017-01-13] MEDS ORDERED: LORazepam 2 MG/ML VIAL (J2060) IM ONE (22:45)
[2017-01-13 23:45] LABS: MEAN CORPUSCULAR HEMOGLOBIN 27.5 pg (27.0-33.0); MEAN CORPUSCULAR HGB CONC 31.2 g/dl (32.0-36.5); MEAN CORPUSCULAR VOLUME 88.3 fl (80.0-96.0); RED CELL DISTRIBUTION WIDTH 16.1 % (11.5-14.5); WHITE BLOOD COUNT 8.5 K/mm3 (4.0-10.0)
[2017-01-14 00:02] LABS: CONTROL LINE HCG INT CTR LINE PRESENT
[2017-01-14 00:19] LABS: ALBUMIN 3.3 GM/DL (3.2-5.2); ALBUMIN/GLOBULIN RATIO 0.97 (1.00-1.93); ALKALINE PHOSPHATASE 68 U/L (45-117); ALT/SGPT 13 U/L (12-78); ANION GAP 8 MEQ/L (8-16); AST/SGOT 8 U/L (15-37); BILIRUBIN,DIRECT < 0.1 MG/DL (0.0-0.2); BILIRUBIN,TOTAL 0.2 MG/DL (0.2-1.0); BLOOD UREA NITROGEN 7 MG/DL (7-18); CALCIUM LEVEL 8.8 MG/DL (8.5-10.1); CARBON DIOXIDE LEVEL 26 MEQ/L (21-32); CHLORIDE LEVEL 108 MEQ/L (98-107); CREATININE FOR GFR 0.77 MG/DL (0.55-1.02); GLOMERULAR FILTRATION RATE > 60.0 (>60); GLUCOSE, FASTING 94 MG/DL (70-105); POTASSIUM SERUM 3.5 MEQ/L (3.5-5.1); SODIUM LEVEL 142 MEQ/L (136-145); TOTAL PROTEIN 6.7 GM/DL (6.4-8.2)
[2017-01-14 03:18] LABS: METHADONE URINE NEGATIVE (NEGATIVE)
[2017-01-14] MEDS ORDERED: ZOFR4TAB3 PO (09:35)
[2017-01-14] MEDS ORDERED: ZOLO100T PO (09:35)
[2017-01-14] MEDS ORDERED: GABA-282 PO (09:35)
[2017-01-14] MEDS ORDERED: LUNE1TAB5 PO (09:35)
[2017-01-14] MEDS ORDERED: MOM 30ML SUSPENSION UDC PO PRN (13:15)
[2017-01-14] MEDS ORDERED: ACETAMINOPHEN TAB 650MG DOSE (2X325MG) PO PRN (13:15)
[2017-01-14] MEDS ORDERED: ONDANSETRON 4 MG TAB (S0181) PO PRN (13:15)
[2017-01-14] MEDS ORDERED: MAALOX 30 ML SUSP *UDC PO PRN (13:15)
[2017-01-14] MEDS: NICOTINE 14 MG/24 HR TRANSDERMAL TD SCH (13:20)
[2017-01-14] MEDS: SERTRALINE 100 MG TAB PO SCH (13:32)
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
[2017-01-14 18:08] VITALS: BP 113/62
[2017-01-14] MEDS: LORazepam 1 MG TAB PO PRN (18:13)
[2017-01-14] MEDS: PRAZOSIN 1 MG CAP PO SCH (20:11)
[2017-01-14] MEDS: QUEtiapine FUMARATE 100 MG TAB PO SCH (20:11)
[2017-01-14] MEDS: GABAPENTIN 300 MG CAP PO SCH (20:11)
[2017-01-14] MEDS: ARIPiprazole 2 MG TAB PO SCH (20:11)
[2017-01-14] MEDS: traZODone 50 MG TAB PO PRN (20:58)
[2017-01-14] MEDS ORDERED: QUEtiapine FUMARATE 200 MG TAB PO SCH (21:00)
[2017-01-14] MEDS ORDERED: QUEtiapine FUMARATE 100 MG TAB PO SCH (21:00)
[2017-01-15 06:40] VITALS: BP 88/48
[2017-01-15] MEDS: NICOTINE 14 MG/24 HR TRANSDERMAL TD SCH (08:39)
[2017-01-15] MEDS: SERTRALINE 100 MG TAB PO SCH (08:40)
[2017-01-15] MEDS: LORazepam 1 MG TAB PO PRN ×2 (10:21→17:04)
[2017-01-15 18:00] VITALS: BP 107/62
[2017-01-15] MEDS: GABAPENTIN 300 MG CAP PO SCH (20:28)
[2017-01-15] MEDS: ARIPiprazole 2 MG TAB PO SCH (20:28)
[2017-01-15] MEDS: QUEtiapine FUMARATE 100 MG TAB PO SCH (20:28)
[2017-01-15] MEDS: PRAZOSIN 1 MG CAP PO SCH (20:31)
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
[2017-01-16 06:00] VITALS: BP 104/60
[2017-01-16] MEDS: SERTRALINE 100 MG TAB PO SCH (08:10)
[2017-01-16] MEDS: NICOTINE 14 MG/24 HR TRANSDERMAL TD SCH (08:11)
[2017-01-16] MEDS: LORazepam 1 MG TAB PO PRN ×3 (08:11→20:03)
[2017-01-16 18:20] VITALS: BP 125/66
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
[2017-01-16] MEDS: ARIPiprazole 2 MG TAB PO SCH (20:50)
[2017-01-16] MEDS: GABAPENTIN 300 MG CAP PO SCH (20:50)
[2017-01-16] MEDS: QUEtiapine FUMARATE 100 MG TAB PO SCH (20:50)
[2017-01-16] MEDS: PRAZOSIN 1 MG CAP PO SCH (20:51)
[2017-01-17 06:26] VITALS: BP 124/57
--- NOTE | 2017-01-17 07:23 | HPE ---
DATE OF ADMISSION: 01/14/2017 HISTORY OF THE PRESENT ILLNESS: Please refer to psychiatric history and evaluation for further details on this admission. This examination and history is intended for medical issues which may need treatment, followup, or consult on this 37-year-old female. PRIMARY CARE PROVIDER: Karyn ALLERGIES: No known allergies. SOCIAL HISTORY: She is . Her is a soldier, currently stationed at [employer]. ETOH: None. Smokes: Four cigarettes per day. Recreational drug use: None, though her urine was positive for cannabinoids. She states she may have smoked a joint months ago. PAST MEDICAL HISTORY: She has a history of an ulcer. She had an esophagogastroduodenoscopy (EGD) July. No further problems. PAST SURGICAL HISTORY: Breast implants, tonsillectomy, cholecystectomy, EGD, cosmetic eye procedure, bilateral eyes. LABORATORY STUDIES: WBC 8.5, hemoglobin 11.8, hematocrit 38, platelets 303. Sodium 142, potassium 3.5, chloride 108, BUN 7, creatinine 0.77. Urine is positive for cannabinoids, positive for benzodiazepines. HOME MEDICATIONS: - gabapentin 300 mg by mouth nightly - Zofran ODT 4 mg by mouth every 4 hours as needed for nausea - Seroquel 200 mg by mouth nightly - Zoloft 100 mg by mouth daily REVIEW OF SYSTEMS: Ten systems review is done. She complained of some slight vaginal itching. Will give her Diflucan. She has a healing bruise right orbit area from where she hit herself in the eye. Otherwise was unremarkable. OBJECTIVE: The patient is alert and oriented times three. Height 65 inches, weight 59 kg, body mass index (BMI) 21.6. Blood pressure 104/60, pulse 73, respirations 18, temperature is 97.5. The patient is alert and oriented times three. Pupils are equal and reactive to light. Extraocular movements intact. Cornea and sclerae clear. Conjunctivae is normal. No facial asymmetry. Healing bruise orbit area and right cheek. No facial asymmetry. Pharynx: Tongue and gums pink and moist. Tongue is midline. Neck is supple without lymphadenopathy. No thyromegaly. No goiter. Chest is clear to auscultation without wheeze or retractions. Heart is regular. Abdomen benign. Bowel sounds are positive. Genital/Rectal: Not done. Extremities show equal strength, full range of motion. No cyanosis, clubbing or edema. Peripheral pulses equal and palpable bilaterally. Skin is warm and dry. IMPRESSION AND PLAN: Psychiatric plan per psychiatry. Vaginal yeast. Diflucan 200 mg by mouth daily for three days. She will notify us if this does not correct the problem. No other acute medical issues. Edited 01/17/2017 manfred
[2017-01-17] MEDS: LORazepam 1 MG TAB PO PRN ×3 (08:21→21:57)
[2017-01-17] MEDS: FLUCONAZOLE 100 MG TAB PO SCH (08:21)
[2017-01-17] MEDS: SERTRALINE 100 MG TAB PO SCH (08:21)
[2017-01-17] MEDS: NICOTINE 14 MG/24 HR TRANSDERMAL TD SCH (08:22)
--- NOTE | 2017-01-17 16:39 | IPN ---
DATE: 01/17/2017 37-year-old female admitted after she overdosed on Lunesta. Her stated that she has ingested 15 tablets. SUBJECTIVE: "I am feeling much better." OBJECTIVE: The patient is improving slowly. She reports improvement and sleeping well with the help of medications. She is able to smile. She has been interacting with other patients and staff. She is showing better affect. No evidence of psychosis. No agitation or behavioral disturbances. MENTAL STATUS EXAMINATION: The patient is dressed in [facility]. The patient is clean and well groomed. The patient has fair eye contact. Speech is normal in rate, volume and articulation. Is coherent and spontaneous. Mood is depressed and anxious but improved from admission. Affect is restricted but also improved. No delusions or hallucinations. Memory, attention, and concentration are fair. The patient is able to contract for safety while she is in the hospital. Insight and judgment are limited. ASSESSMENT: 1. Depression. 2. Suicidal ideation. PLAN: 1. Continue with Neurontin 300 mg by mouth at night. 2. Continue with trazodone 50 mg by mouth at night as needed for insomnia. 3. Continue with Abilify 2 mg by mouth at night. 4. Continue with Seroquel 200 mg by mouth at night. 5. Continue with prazosin 2 mg by mouth at night. 6. Continue with Zoloft 200 mg by mouth in the morning.
[2017-01-17 18:00] VITALS: BP 122/66
[2017-01-17] MEDS: GABAPENTIN 300 MG CAP PO SCH (20:08)
[2017-01-17] MEDS: PRAZOSIN 1 MG CAP PO SCH (20:08)
[2017-01-17] MEDS: QUEtiapine FUMARATE 100 MG TAB PO SCH (20:09)
[2017-01-17] MEDS: ARIPiprazole 2 MG TAB PO SCH (20:09)
[2017-01-17] MEDS: traZODone 50 MG TAB PO PRN (21:57)
[2017-01-18 06:18] VITALS: BP 122/58
[2017-01-18] MEDS: FLUCONAZOLE 100 MG TAB PO SCH (08:03)
[2017-01-18] MEDS: SERTRALINE 100 MG TAB PO SCH (08:03)
[2017-01-18] MEDS: LORazepam 1 MG TAB PO PRN ×3 (08:03→20:18)
[2017-01-18] MEDS: NICOTINE 14 MG/24 HR TRANSDERMAL TD SCH (08:03)
--- NOTE | 2017-01-18 17:05 | IPN ---
DATE: 01/18/2017 A 37-year-old female admitted after an overdose of Lunesta. Her stated that she ingested 15 tablets. SUBJECTIVE: "I'm feeling a lot better." OBJECTIVE: Patient continues improving. Denies side effects from the medication. Says that is sleeping well with the help of current medication. Patient is motivated for treatment. She is interacting well with other patients and staff. No evidence of psychomotor retardation. MENTAL STATUS EXAMINATION: Patient is dressed in [facility]. Patient is cooperative during examination. Has fair eye contact. Speech is normal in rate, volume. Articulation is quiet and is spontaneous. Mood is depressed and anxious, but improved. Affect is congruent with mood. No delusions or hallucinations. Memory is fair. Patient is fully oriented. Associations are intact. Thinking is logical. Thought content is appropriate. Insight and judgment is fair. ASSESSMENT: 1. Depression. 2. Suicidal ideation. PLAN: 1. Continue with Neurontin 300 mg by mouth at bedtime. 2. Continue with trazodone 50 mg by mouth at bedtime as needed for insomnia. 3. Continue with Abilify 2 mg by mouth at bedtime. 4. Continue with Seroquel 200 mg by mouth at bedtime. 5. Continue with prazosin 2 mg by mouth at bedtime. 6. Continue with Zoloft 200 mg by mouth every morning.
[2017-01-18 18:31] VITALS: BP 110/76
[2017-01-18] MEDS: QUEtiapine FUMARATE 100 MG TAB PO SCH (21:28)
[2017-01-18] MEDS: traZODone 50 MG TAB PO PRN (21:28)
[2017-01-18] MEDS: GABAPENTIN 300 MG CAP PO SCH (21:28)
[2017-01-18] MEDS: ARIPiprazole 2 MG TAB PO SCH (21:28)
[2017-01-18 21:30] VITALS: BP 108/66
[2017-01-18] MEDS: PRAZOSIN 1 MG CAP PO SCH (21:30)
[2017-01-19 06:45] VITALS: BP 110/69
[2017-01-19] MEDS: LORazepam 1 MG TAB PO PRN (08:09)
[2017-01-19] MEDS: SERTRALINE 100 MG TAB PO SCH (08:10)
[2017-01-19] MEDS: NICOTINE 14 MG/24 HR TRANSDERMAL TD SCH (08:10)
[2017-01-19] MEDS: FLUCONAZOLE 100 MG TAB PO SCH (08:10)
[2017-01-19] MEDS ORDERED: ARIP2TAB PO (09:53)
[2017-01-19] MEDS ORDERED: MINI1CAP PO (09:53)
[2017-01-19] MEDS ORDERED: TRAZO50TA PO (09:53)
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
[2017-05-19] MEDS ORDERED: TRUVTAB PO (15:46)
[2017-05-19] MEDS ORDERED: RALT40TA PO (15:47)
[2017-05-25] MEDS ORDERED: QUET1TAB8 PO (12:53)
[2017-05-25] MEDS ORDERED: ABIL1TAB13 PO (14:25)
== END 2017-01-19 11:05 | disposition home or self-care (01) | DRG 882 ==
LOC: M ED 22:31 → M ED INP 01-14 09:00 → M PSY 01-14 10:45
PROVIDERS: ADMIT Psychiatry & Neurology Psychiatry; ATTEND Psychiatry & Neurology Psychiatry
DX: F43.10 Post-traumatic stress disorder, unspecified (principal); F60.3 Borderline personality disorder; Z79.899 Other long term (current) drug therapy; F17.210 Nicotine dependence, cigarettes, uncomplicated; B37.3 Candidiasis of vulva and vagina

== ENCOUNTER 2020-02-27 03:33 | Emergency (ER) | payer OTHER ==
[~2020-02-27 03:33] MED LIST changes: +ABIL1TAB13 PO; +ARIP1TAB4 PO; -CITA20TA4 PO; +CITA20TA6 PO; -GABA-282 PO; +GABA-843 PO; +HYDR-3715 PO; +LUNE1TAB5 PO; -MELA3TAB PO; +MELA3TAB63 PO; +MINI1CAP PO; -NORCOTAB PO; -PANT40TA2 PO; +PANT40TA29 PO; +QUET100T2 PO; +RALT40TA PO; +SENN-50 PO; +SENN-53 PO; -SENN1TAB2 PO; -SENN8.6T54 PO; +TRAZ1TAB10 PO; +TRUVTAB PO; +ZOFR4TAB14 PO; -ZOFR4TAB3 PO; +ZOLO100T PO
[2020-02-27] MEDS ORDERED: MORPHINE 2 MG/ML 1ML VIAL (J2270) As Ordered ONE (03:41)
[2020-02-27] MEDS ORDERED: MORPHINE 2 MG/ML 1ML VIAL (J2270) ONE (03:41)
[2020-02-27] MEDS ORDERED: ISOVUE-370 76% 100ML VIAL As Ordered ONE (04:25)
[2020-02-27] MEDS ORDERED: KETOROLAC 30 MG/ML 1ML VIAL ONE (05:33)
[2020-02-27] MEDS ORDERED: KETOROLAC 30 MG/ML 1ML VIAL As Ordered ONE (05:33)
[2020-04-13 22:01] LABS: HEMATOCRIT 39.6 % (36.0-47.0); HEMOGLOBIN 13.4 g/dl (12.0-15.5); MEAN CORPUSCULAR HEMOGLOBIN 31.1 pg (27.0-33.0); MEAN CORPUSCULAR HGB CONC 33.8 g/dl (32.0-36.5); MEAN CORPUSCULAR VOLUME 91.9 fl (80.0-96.0); PLATELET COUNT, AUTOMATED 379 10^3/uL (150-450); RED BLOOD COUNT 4.31 10^6/uL (4.00-5.40); WHITE BLOOD COUNT 14.5 10^3/uL (4.0-10.0)
[2020-04-13 22:04] LABS: PROTHROMBIN TIME 13.4 SECONDS (12.5-14.3)
[2020-04-17] MEDS ORDERED: PHAR25CA (09:35)
[2020-04-17] MEDS ORDERED: ESCI10TA2 (09:35)
[2020-04-17] MEDS ORDERED: ONDA-83 (09:35)
[2020-04-17] MEDS ORDERED: SUCR1TAB56 (09:35)
[2020-04-17] MEDS ORDERED: LATU80TA PO (09:35)
[2020-04-17] MEDS ORDERED: PANT40TA29 (09:35)
[2020-04-17] MEDS ORDERED: HYDR-643 (10:56)
[2020-04-17] MEDS ORDERED: QUET1TAB7 (10:56)
[2020-04-17] MEDS ORDERED: TRAZ-257 (10:56)
[2020-05-12 22:21] LABS: ALBUMIN 3.5 GM/DL (3.2-5.2); BILIRUBIN,DIRECT 0.2 MG/DL (0.0-0.2); BILIRUBIN,TOTAL 0.7 MG/DL (0.2-1.0); TOTAL PROTEIN 6.9 GM/DL (6.4-8.2)
== END 2020-02-27 05:40 | disposition home or self-care (01) ==
LOC: M ED 03:33
DX: N83.292 Other ovarian cyst, left side (principal); M54.5 Low back pain; F33.9 Major depressive disorder, recurrent, unspecified; F17.210 Nicotine dependence, cigarettes, uncomplicated; Z79.899 Other long term (current) drug therapy
CPT/HCPCS: 71275; 74176; 80047; 80076; 83690; 85027; 85610; 96374; 96375; 99284; J1885; J2270; Q9967

== ENCOUNTER 2020-04-23 06:57 | Day surgery (SDC) | payer OTHER ==
[~2020-04-23] VITALS: Ht 162.6 cm; Wt 64.4 kg
[~2020-04-23 06:57] MED LIST changes: +ESCI10TA2; +HYDR-643; +LATU80TA PO; +ONDA-83; +PANT40TA29; +PHAR25CA; +QUET1TAB7; +SUCR1TAB56; +TRAZ-257
[2020-04-23] MEDS ORDERED: LIDOCAINE 2% 100MG/5ML SDV (FOR ANES.) As Ordered ONE (07:39)
[2020-04-23] MEDS ORDERED: propofoL 200 MG/20 ML VIAL As Ordered ONE (07:39)
--- NOTE | 2020-04-23 07:45 | ROOR ---
Patient Name: Spring Smith Procedure Date: 04/23/2020 7:30 AM Date of : 1980 Age: 40 Room: [facility] Gender: Female Note Status: Finalized Procedure: Upper Endoscopy + Biopsies Indications: Epigastric abdominal pain, Exclusion of Helicobacter pylori, Exclusion of peptic ulcer Providers: Paul Rosario MD Referring MD: CALEB ELLIS MD Requesting Provider: Medicines: Monitored Anesthesia Care Complications: No immediate complications. Procedure: Pre-Anesthesia Assessment: - The heart rate, respiratory rate, oxygen saturations, blood pressure, adequacy of pulmonary ventilation, and response to care were monitored throughout the procedure. The Endoscope was introduced through the mouth, and advanced to the second part of duodenum. The upper GI endoscopy was accomplished without difficulty. The patient tolerated the procedure well. Findings: The Z-line was regular and was found 40 cm from the incisors. The exam of the stomach was otherwise normal. Biopsies were taken with a cold forceps in the gastric antrum for Helicobacter pylori testing. The examined duodenum was normal. The exam was otherwise without abnormality. Impression: - Z-line regular, 40 cm from the incisors. - Normal examined duodenum. - The examination was otherwise normal. - Biopsies were taken with a cold forceps for Helicobacter pylori testing. - The examination was otherwise normal. Recommendation: - Patient has a contact number available for emergencies. The signs and symptoms of potential delayed complications were discussed with the patient. Return to normal activities tomorrow. Written discharge instructions were provided to the patient. - Resume previous diet. - Discharge patient to home. - Follow an antireflux regimen. - Continue present medications. - Await pathology results. - Telephone GI clinic for pathology results in 1 week. - Return to referring physician. - The findings and recommendations were discussed with the patient. Paul Rosario MD Paul Rosario MD 04/23/2020 7:44:44 AM Electronically signed by Paul Rosario MD Number of Addenda: 0 Note Initiated On: 04/23/2020 7:30 AM Estimated Blood Loss: Estimated blood loss: none.
[2020-04-23 08:15] VITALS: BP 97/63
[2020-04-23] MEDS ORDERED: NS 1,000 ML IV ONE (08:45)
== END 2020-04-23 08:17 | disposition home or self-care (01) ==
LOC: M OPP 06:57
PROVIDERS: ATTEND Internal Medicine Gastroenterology
DX: R10.13 Epigastric pain (principal); D13.1 Benign neoplasm of stomach; Z87.11 Personal history of peptic ulcer disease; F41.9 Anxiety disorder, unspecified; F32.9 Major depressive disorder, single episode, unspecified; G43.909 Migraine, unspecified, not intractable, without status migrainosus; F43.10 Post-traumatic stress disorder, unspecified; Z87.891 Personal history of nicotine dependence; Z79.899 Other long term (current) drug therapy

== ENCOUNTER 2021-03-14 05:05 | Observation (INO) | payer OTHER ==
[~2021-03-14] VITALS: Ht 162.6 cm; Wt 72.7 kg
[~2021-03-14 05:05] MED LIST changes: +EMTR1TAB16 PO; +ESCI10TA16; -ESCI10TA2; +GABA-282 PO; -GABA-843 PO; -HYDR-643; +HYDR-643 PO; -MELA3TAB63 PO; +MELA3TAB70 PO; +QUET1TAB17; -QUET1TAB7; -TRUVTAB PO
[2021-03-14 05:33] LABS: BASO # 0.1 10^3/uL (0.0-0.2); BASO % 0.4 % (0.0-1.0); EOS # 0.1 10^3/uL (0.0-0.5); EOS % 0.4 % (0.0-3.0); HEMATOCRIT 39.1 % (36.0-47.0); HEMOGLOBIN 13.3 g/dl (12.0-15.5); LYMPH # 1.6 10^3/uL (1.5-5.0); LYMPH % 11.1 % (24.0-44.0); MEAN CORPUSCULAR HEMOGLOBIN 28.9 pg (27.0-33.0); MEAN CORPUSCULAR VOLUME 84.8 fl (80.0-96.0); MONO # 0.6 10^3/uL (0.0-0.8); MONO % 3.8 % (2.0-8.0); NEUTROPHILS % 83.3 % (36.0-66.0); PLATELET COUNT, AUTOMATED 443 10^3/uL (150-450); RED BLOOD COUNT 4.61 10^6/uL (4.00-5.40); WHITE BLOOD COUNT 14.5 10^3/uL (4.0-10.0)
[2021-03-14] MEDS ORDERED: MORPHINE 2 MG/ML 1ML VIAL (J2270) As Ordered ONE (05:55)
[2021-03-14] MEDS ORDERED: NS 1,000 ML IV ONE (05:55)
[2021-03-14] MEDS ORDERED: MORPHINE 2 MG/ML 1ML VIAL (J2270) IV PRN (05:55)
[2021-03-14 05:57] LABS: ALT/SGPT 20 U/L (12-78); BILIRUBIN,DIRECT < 0.1 MG/DL (0.0-0.2); BILIRUBIN,TOTAL 0.7 MG/DL (0.2-1.0); BLOOD UREA NITROGEN 8 MG/DL (7-18); CALCIUM LEVEL 8.8 MG/DL (8.5-10.1); CARBON DIOXIDE LEVEL 22 MEQ/L (21-32); CHLORIDE LEVEL 107 MEQ/L (98-107); CREATININE FOR GFR 0.91 MG/DL (0.55-1.30); GLOMERULAR FILTRATION RATE > 60.0 (>58); GLUCOSE, FASTING 146 MG/DL (70-100); LIPASE 35 U/L (73-393); POTASSIUM SERUM 4.8 MEQ/L (3.5-5.1); SODIUM LEVEL 138 MEQ/L (136-145); TOTAL PROTEIN 6.8 GM/DL (6.4-8.2)
[2021-03-14 06:10] LABS: HCG, SERUM QUALITATIVE NEGATIVE (NEGATIVE)
[2021-03-14 06:20] LABS: RSV AMPLIFICATION NEGATIVE (NEGATIVE)
[2021-03-14 06:26] LABS: CK-MB VALUE MASS < 1.0 NG/ML (<3.6); CPK CREATINE PHOSPHOKINASE 86 U/L (26-192); MB/CK RELATIVE INDEX 1.16 (< OR =4); TROPONIN I < 0.02 NG/ML (< 0.10)
[2021-03-14] MEDS ORDERED: ISOVUE-370 76% 100ML VIAL As Ordered ONE (06:42)
--- NOTE | 2021-03-14 07:05 | REPVR ---
PROCEDURE INFORMATION: Exam: XR Chest Exam date and time: 03/14/2021 5:48 AM Age: 41 years old Clinical indication: Other: Abd pain; Additional info: Abdominal pain TECHNIQUE: Imaging protocol: XR of the chest. Views: 1 view. COMPARISON: CT ANGIO CHEST 02/27/2020 4:29 AM FINDINGS: Lungs: Unremarkable. No consolidation. Pleural spaces: Unremarkable. No pleural effusion. No pneumothorax. Heart/Mediastinum: Unremarkable. No cardiomegaly. Bones/joints: Unremarkable. IMPRESSION: No acute findings. Electronically signed by: Arjun Morales On 03/14/2021 07:05:22 AM
--- NOTE | 2021-03-14 07:45 | REPVR ---
PROCEDURE INFORMATION: Exam: CTA Chest With Contrast Exam date and time: 03/14/2021 7:22 AM Age: 41 years old Clinical indication: Other: Hypoxia TECHNIQUE: Imaging protocol: Computed tomographic angiography of the chest with contrast. 3D rendering (Not supervised by radiologist): MIP and/or 3D reconstructed images were created by the technologist. Radiation optimization: All CT scans at this facility use at least one of these dose optimization techniques: automated exposure control; mA and/or kV adjustment per patient size (includes targeted exams where dose is matched to clinical indication); or iterative reconstruction. Contrast material: ISOVUE 370; Contrast volume: 100 ml; Contrast route: INTRAVENOUS (IV); COMPARISON: CT ANGIO CHEST 02/27/2020 4:29 AM FINDINGS: Pulmonary arteries: Normal. No pulmonary emboli. Aorta: Unremarkable. No aortic aneurysm. No aortic dissection. Lungs: There is mild bronchial wall thickening with subtle mosaic lung attenuations coupled with scattered small plate like atelectases and or ground-glass opacities more pronounced in the left upper lobe. There is a 3-4 mm nodule in the right upper lobe best seen on coronal image 30 series 403. Pleural spaces: Unremarkable. No pneumothorax. No pleural effusion. Heart: Unremarkable. No cardiomegaly. No pericardial effusion. Lymph nodes: There are shotty subcentimeter prevascular lymph nodes. Small hilar lymph nodes seen. Bones/joints: Unremarkable. No acute fracture. Soft tissues: Grossly intact bilateral breast prostheses seen. IMPRESSION: 1. No CT evidence of pulmonary embolism or right heart strain. 2. Bilateral lung findings suggestive of bronchitis with plate like atelectases vs small scattered early infectious/inflammatory infiltrates particularly in the left upper lobe coupled with shotty reactive prevascular and hilar lymph nodes. Although findings can be seen with early COVID 19 pneumonia these are not typical. 3. 3-4 mm right upper lobe lung nodule. - For patients at low risk (minimal or absent history of smoking and of other known risk factors), no routine follow-up is indicated. - For patients at high risk (history of smoking or of other known risk factors), consider optional CT Chest at 12 months. (Reference: Marvin) - if there is history of cancer, Fleischner Society follow up recommendations for incidental nodules are not indicated. Follow up per the patient's medical condition. REFERENCES: Marvin Hanks et al. Guidelines for Management of Incidental Pulmonary Nodules Detected on CT Images: From the Fleischner Society 2017. Radiology. 2017;284(1):228-243. Electronically signed by: Arjun Morales On 03/14/2021 07:45:08 AM
--- NOTE | 2021-03-14 07:51 | REPVR ---
PROCEDURE INFORMATION: Exam: CT Abdomen And Pelvis With Contrast Exam date and time: 03/14/2021 7:22 AM Age: 41 years old Clinical indication: Abdominal pain; Generalized; Additional info: Abdominal pain, generalized TECHNIQUE: Imaging protocol: Computed tomography of the abdomen and pelvis with contrast. Radiation optimization: All CT scans at this facility use at least one of these dose optimization techniques: automated exposure control; mA and/or kV adjustment per patient size (includes targeted exams where dose is matched to clinical indication); or iterative reconstruction. Contrast material: ISOVUE 370; Contrast volume: 100 ml; Contrast route: INTRAVENOUS (IV); COMPARISON: CT ABD PELVIS W/O CONTRAST 02/27/2020 4:29 AM FINDINGS: Liver: Normal. No mass. Gallbladder and bile ducts: The patient is status post cholecystectomy. There is mild extrahepatic biliary ductal dilatation likely physiologic post cholecystectomy phenomena, unchanged since the prior exam. Pancreas: Normal. No ductal dilation. Spleen: Normal. No splenomegaly. Adrenal glands: Normal. No mass. Kidneys and ureters: Normal. No hydronephrosis. Stomach and bowel: Unremarkable. No obstruction. No mucosal thickening. Appendix: No evidence of appendicitis. Intraperitoneal space: Unremarkable. No free air. No significant fluid collection. Vasculature: Unremarkable. No abdominal aortic aneurysm. Lymph nodes: Unremarkable. No enlarged lymph nodes. Urinary bladder: Unremarkable as visualized. Reproductive: The left ovary is slightly lobulated in contour with a 2.5 x 2.3 cm rounded relatively dense nodule with respect to the ovary. Bones/joints: There is L5-S1 disc degenerative changes. Soft tissues: There is small periumbilical fat containing hernia. IMPRESSION: 1. No CT evidence of acute abdominal or pelvic pathology. 2. Nonspecific slightly lobulated left ovarian contour containing 2.5 x 2.3 cm rounded relatively dense nodule with respect of the ovary unchanged in appearance since February 27, 2020. Further evaluation with pelvic sonogram is suggested on a nonemergent basis. 3. Small periumbilical fat containing hernia. Electronically signed by: Arjun Morales On 03/14/2021 07:51:10 AM
[2021-03-14] MEDS ORDERED: HALOPERIDOL 5MG/ML VIAL (J1630 PER 1) IV ONE (08:20)
[2021-03-14 08:26] LABS: AMPHETAMINES LEVEL URINE NEGATIVE (NEGATIVE); BARBITURATES URINE NEGATIVE (NEGATIVE); BENZODIAZEPINES URINE NEGATIVE (NEGATIVE); CANNABINOIDS URINE POSITIVE (NEGATIVE); COCAINE METABOLITE URINE NEGATIVE (NEGATIVE); METHADONE URINE NEGATIVE (NEGATIVE); OPIATES URINE POSITIVE (NEGATIVE); PHENCYCLIDINE URINE NEGATIVE (NEGATIVE)
[2021-03-14] MEDS ORDERED: KETAMINE HCL 14.55 MG in NS 50 ML IV ONE (11:00)
[2021-03-14] MEDS ORDERED: LEXA1TAB PO (12:36)
[2021-03-14] MEDS ORDERED: AMOX875T2 PO (12:36)
[2021-03-14] MEDS ORDERED: IBUP-1720 PO (12:36)
[2021-03-14] MEDS ORDERED: QUET100T2 PO (12:36)
[2021-03-14] MEDS ORDERED: HYDR-4571 PO (12:36)
[2021-03-14] MEDS ORDERED: HOME MED LIST COMPLETE! XX SCH (12:40)
[2021-03-14] MEDS ORDERED: hydrOXYzine 10 MG TAB PO PRN (12:50)
[2021-03-14] MEDS ORDERED: IBUPROFEN 600MG TAB PO PRN (12:50)
[2021-03-14] MEDS ORDERED: ACETAMINOPHEN TAB 650MG DOSE (2X325MG) PO PRN (12:50)
[2021-03-14] MEDS ORDERED: METOCLOPRAMIDE INJ 10MG/2ML VIAL (J2765 PER 1) IV PRN (12:50)
[2021-03-14] MEDS ORDERED: ONDANSETRON 4MG/2ML VIAL IV PRN (12:50)
--- NOTE | 2021-03-14 13:11 | HPEPDOC ---
General Date of Admission 03/14/21 Date of Service: Mar 14, 2021 Chief Complaint The patient is a 41-year-old female admitted with a reason for visit of Abdominal Pain/Nausea. Source: Patient Exam Limitations: No limitations History of Present Illness Patient needs 41 years old female with past medical history of chronic abdominal pain, anxiety/depression, PTSD, chronic back pain, insomnia presented to hospital with intractable abdominal pain. Around 2 days ago she developed dysuria epigastric abdominal pain associated with multiple episodes of vomiting. She denies any fever or chills, diarrhea. Of note patient has chronic abdominal pain, GI team sheet EGD EGD few months ago, no any acute pathology was revealed. Patient reported that she has a continuous nausea and her abdominal pain rated from 8 out of 10. Patient is also use marijuana chronically. In ER patient was found to have lactic acidosis of 2.4, leukocytosis of 14.5. CT abdomen pelvis showed No evidence of acute abdominal or pelvic pathology. Home Medications Scheduled Amoxicillin/Potassium Clav (Amox-Clav 875-125 mg Tablet) 1 Each Tablet, 1 TAB PO BID, (Reported) FILLED 03/13/21 FOR 10 DAYS Escitalopram Oxalate (Lexapro) 10 Mg Tablet, 15 MG PO QHS, (Reported) Lurasidone HCl (Latuda) 80 Mg Tablet, 80 MG PO QPM, (Reported) Quetiapine Fumarate (Quetiapine Fumarate) 100 Mg Tablet, 100 MG PO QHS, (Reported) Scheduled PRN Hydrocodone/Acetaminophen (Hydrocodone-Acetamin 5-325 mg) 1 Each Tablet, 1 TAB PO Q4H PRN for MODERATE/SEVERE PAIN (PS 5-10), (Reported) Hydroxyzine HCl (Hydroxyzine HCl) 10 Mg Tablet, 10 MG PO BID PRN for ANXIETY, (Reported) Ibuprofen (Ibuprofen) 200 Mg Tablet, 600 MG PO TID PRN for MILD PAIN (PS 1-4), (Reported) Allergies Coded Allergies: No Known Allergies (Unverified , 04/17/20) Past Medical History Medical History Anxiety Depression PTSD Insomnia Chronic back pain/DDD. History of gestational diabetes Chronic abdominal pain Surgical History Laparoscopic cholecystectomy 08/05 Breast augmentation D&C Tonsillectomy Cosmetic eye procedure bilaterally. EGD 08/05 Josy. Nonbleeding duodenal ulcer, gastritis. EGD 10/03. Josy. Gastritis/duodenitis. Family History I personally reviewed family history and found not pertinent Social History * Smoker: current smoker Alcohol: Denies Drugs: marijuana A-FIB/CHADSVASC A-FIB History Current/History of A-Fib/PAF?: No Current PO Anticoag Therapy: No Review of Systems Constitutional: Denies: Chills, Fever Eyes: Denies: Pain ENT: Denies: Head Aches Skin: Denies: Rash Pulmonary: Denies: Dyspnea Cardiovascular: Denies: Chest Pain Gastrointestinal: Reports: Nausea, Vomiting, Abdominal Pain; Denies: Diarrhea, Constipation Genitourinary: Denies: Dysuria Hematologic: Denies: Bruising Endocrine: Denies: Polydipsia Musculoskeletal: Denies: Neck Pain Neurological: Denies: Weakness Psych: Reports: Mood Normal Physical Examination General Exam: Positive: Alert Eye Exam: Positive: PERRLA ENT Exam: Positive: Atraumatic Neck Exam: Positive: Supple; Negative: JVD Chest Exam: Positive: Clear to auscultation Heart Exam: Positive: Rate Normal Telemetry: Positive: No significant arrhythmia Abdomen Exam: Positive: Normal bowel sounds, Tenderness (Tender in epigastric area) Extremity Exam: Negative: Clubbing, Cyanosis Skin Exam: Negative: Nl turgor and temperature Neuro Exam: Positive: Normal Gait Psych Exam: Positive: Mental status NL Vital Signs Vital Signs Date Time Temp Pulse Resp B/P (MAP) Pulse Ox O2 Delivery O2 Flow Rate FiO2 03/14/21 11:10 74 139/84 (102) 03/14/21 09:19 16 93 Room Air 03/14/21 06:14 3.0 03/14/21 05:13 98.2 Laboratory Data Labs 24H Laboratory Tests 2 03/14/21 05:17: Immature Granulocyte % (Auto) 1.0, Neutrophils (%) (Auto) 83.3H, Lymphocytes (%) (Auto) 11.1L, Monocytes (%) (Auto) 3.8, Eosinophils (%) (Auto) 0.4, Basophils ( %) (Auto) 0.4, Neutrophils # (Auto) 12.0H, Lymphocytes # (Auto) 1.6, Monocytes # (Auto) 0.6, Eosinophils # (Auto) 0.1, Basophils # (Auto) 0.1, Nucleated Red Blood Cells % (auto) 0.0, Anion Gap 9, Glomerular Filtration Rate > 60.0, Lactic Acid Level 2.4*H, Calcium Level 8.8, Total Bilirubin 0.7, Direct Bilirubin < 0.1, Aspartate Amino Transf (AST/SGOT) 26, Alanine Aminotransferase (ALT/SGPT) 20, Alkaline Phosphatase 126H, Total Creatine Kinase 86, Creatine Kinase MB < 1.0, Creatine Kinase MB Relative Index 1.16, Troponin I < 0.02, Total Protein 6.8, Albumin 3.0L, Albumin/Globulin Ratio 0.8L, Lipase 35L, Human Chorionic Gonadotropin, Qual NEGATIVE 03/14/21 05:26: Coronavirus (COVID-19)(PCR) NEGATIVE, Influenza Type A (RT-PCR) NEGATIVE, Influenza Type B (RT-PCR) NEGATIVE, Respiratory Syncytial Virus (PCR) NEGATIVE 03/14/21 08:04: Urine Color YELLOW, Urine Appearance CLEAR, Urine pH 7.0, Urine Specific Spring >1.060H, Urine Protein NEGATIVE, Urine Glucose (UA) NEGATIVE, Urine Ketones 1+H, Urine Blood 1+H, Urine Nitrite NEGATIVE, Urine Bilirubin NEGATIVE, Urine Urobilinogen 0.2, Urine Leukocyte Esterase NEGATIVE, Urine WBC (Auto) 0, Urine RBC (Auto) 5H, Urine Hyaline Casts (Auto) 0, Urine Bacteria (Auto) NEGATIVE, Urine Squamous Epithelial Cells 4, Urine Sperm (Auto) , Urine Opiates Screen POSITIVEH, Urine Methadone Screen NEGATIVE, Urine Barbiturates Screen NEGATIVE, Urine Phencyclidine Screen NEGATIVE, Urine Amphetamines Screen NEGATIVE, Urine Benzodiazepines Screen NEGATIVE, Urine Cocaine Metabolite Screen NEGATIVE, Urine Cannabinoids Screen POSITIVEH CBC/BMP Laboratory Tests 03/14/21 05:17 Assessment/Plan Patient needs 41 years old female with past medical history of chronic abdominal pain, anxiety/depression, PTSD, chronic back pain, insomnia presented to hospital with intractable abdominal pain. Around 2 days ago she developed dysuria epigastric abdominal pain associated with multiple episodes of vomiting. She denies any fever or chills, diarrhea. Of note patient has chronic abdom inal pain, GI team sheet EGD EGD few months ago, no any acute pathology was revealed. Patient reported that she has a continuous nausea and her abdominal pain rated from 8 out of 10. Patient is also use marijuana chronically. In ER patient was found to have lactic acidosis of 2.4, leukocytosis of 14.5. CT abdomen pelvis showed No evidence of acute abdominal or pelvic pathology. Problems (1) Cannabinoid hyperemesis syndrome Status: Chronic Problem Text: Patient continues to smoke marijuana. There is possibility for emesis was induced by smoking Counseling (2) Intractable abdominal pain Status: Acute Problem Text: CT scan negative for acute abdominal pathology. 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 Patient received treatment with ALTO she stated that it did not work for her We will start amitriptyline as a treatment for FAPS We will start PPI Pain management IV fluid And clear liquid diet (3) Depression Status: Acute Problem Text: Continue home meds Plan / VTE VTE Prophylaxis Ordered?: Yes FELIX OBANDO DO Mar 14, 2021 13:11
[2021-03-14] MEDS: PANTOPRAZOLE 40MG VIAL (C9113 PER 1) IV SCH ×2 (13:27→20:21)
[2021-03-14] MEDS: NS 1,000 ML IV SCH (13:32)
[2021-03-14] MEDS ORDERED: LURASIDONE HCL 40 MG TAB (LATUDA) PO SCH (18:00)
[2021-03-14 18:08] VITALS: BP 103/67
--- NOTE | 2021-03-14 18:57 | ECGEPIP ---
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
[2021-03-14 20:00] VITALS: BP 102/64
[2021-03-14] MEDS: HEPARIN SOD (PORCINE) 5000UNITS/ML 1ML VIAL/SYRINGE SC SCH (20:21)
[2021-03-14] MEDS: NORCO, ANEXSIA 5/325MG TABLET (HYDROcodone/ACETAMINOPHEN) PO PRN (20:21)
[2021-03-14] MEDS ORDERED: QUEtiapine FUMARATE 100 MG TAB PO SCH (21:00)
[2021-03-14] MEDS ORDERED: AMITRIPTYLINE 25MG TABLET PO SCH (21:00)
[2021-03-15] MEDS: NS 1,000 ML IV SCH ×2 (00:38→06:14)
[2021-03-15 05:53] VITALS: BP 104/62
[2021-03-15 06:58] LABS: HEMATOCRIT 33.1 % (36.0-47.0); MEAN CORPUSCULAR HEMOGLOBIN 28.8 pg (27.0-33.0); MEAN CORPUSCULAR HGB CONC 33.2 g/dl (32.0-36.5); MEAN CORPUSCULAR VOLUME 86.6 fl (80.0-96.0); PLATELET COUNT, AUTOMATED 338 10^3/uL (150-450); RED BLOOD COUNT 3.82 10^6/uL (4.00-5.40); WHITE BLOOD COUNT 11.4 10^3/uL (4.0-10.0)
[2021-03-15 07:40] LABS: ALBUMIN 2.3 GM/DL (3.2-5.2); ALT/SGPT 18 U/L (12-78); BILIRUBIN,TOTAL 0.4 MG/DL (0.2-1.0); BLOOD UREA NITROGEN 5 MG/DL (7-18); CALCIUM LEVEL 8.2 MG/DL (8.5-10.1); CARBON DIOXIDE LEVEL 23 MEQ/L (21-32); CHLORIDE LEVEL 112 MEQ/L (98-107); CREATININE FOR GFR 0.71 MG/DL (0.55-1.30); GLOMERULAR FILTRATION RATE > 60.0 (>58); GLUCOSE, FASTING 83 MG/DL (70-100); MAGNESIUM LEVEL 1.8 MG/DL (1.8-2.4); POTASSIUM SERUM 3.2 MEQ/L (3.5-5.1); SODIUM LEVEL 144 MEQ/L (136-145); TOTAL PROTEIN 5.4 GM/DL (6.4-8.2)
--- NOTE | 2021-03-15 08:46 | ECGEPIP ---
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
[2021-03-15] MEDS: NORCO, ANEXSIA 5/325MG TABLET (HYDROcodone/ACETAMINOPHEN) PO PRN (09:10)
[2021-03-15] MEDS: PANTOPRAZOLE 40MG VIAL (C9113 PER 1) IV SCH (09:10)
[2021-03-15] MEDS: HEPARIN SOD (PORCINE) 5000UNITS/ML 1ML VIAL/SYRINGE SC SCH (09:10)
[2021-03-15] MEDS ORDERED: SUCR1ORA PO (11:34)
[2021-03-15] MEDS ORDERED: OMEP40CA4 PO (11:34)
[2021-03-15] MEDS ORDERED: ACET1TAB55 PO (11:34)
[2021-03-15] MEDS ORDERED: AMIT25TA17 PO (11:34)
--- NOTE | 2021-03-15 15:45 | DS.PDOC ---
Discharge Summary General Date of Admission Mar 14, 2021 at 05:06 Date of Discharge 03/15/21 Discharge Summary PROCEDURES PERFORMED DURING STAY: [None]. ADMITTING DIAGNOSES: Cannabinoid hyperemesis syndrome Intractable abdominal pain Depression DISCHARGE DIAGNOSES: Cannabinoid hyperemesis syndrome Intractable abdominal pain Depression functional abdominal pain syndrome COMPLICATIONS/CHIEF COMPLAINT: Cannabinoid Hyperemisis Syndrome,Depression,Intrac. HISTORY OF PRESENT ILLNESS: Patient needs 41 years old female with past medical history of chronic abdominal pain, anxiety/depression, PTSD, chronic back pain, insomnia presented to hospital with intractable abdominal pain. Around 2 days ago she developed dysuria epigastric abdominal pain associated with multiple episodes of vomiting. She denies any fever or chills, diarrhea. Of note patient has chronic abdominal pain, GI team sheet EGD EGD few months ago, no any acute pathology was revealed. Patient reported that she has a continuous nausea and her abdominal pain rated from 8 out of 10. Patient is also use marijuana chronically. In ER patient was found to have lactic acidosis of 2.4, leukocytosis of 14.5. CT abdomen pelvis showed No evidence of acute abdominal or pelvic pathology. HOSPITAL COURSE: During hospital stay the following issue addressed (1) Cannabinoid hyperemesis syndrome Patient continues to smoke marijuana. There is possibility the emesis was induced by smoking Counseling (2) Intractable abdominal pain CT scan negative for acute abdominal pathology. 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 ALLERGIES: Please see below. PHYSICAL EXAMINATION ON DISCHARGE: VITAL SIGNS: Please see below. Objective: GENERAL APPEARANCE: NAD HEENT: no scleral icterus, no JVD, EOMI CARDIOVASCULAR: S1S2 LUNGS: CTA ABDOMEN: soft & not tender w palpation MUSCULOSKELETAL: no cyanosis, no swelling INTEGUMENT: no generalized pallor NEUROLOGICAL: cranial nerve function from 2-12 intact, follows commands, speech not dysarthric LABORATORY DATA: Please see below. IMAGING: See above PROGNOSIS: Fair ACTIVITY: [As tolerated]. DIET: Soft mechanical diet for the next 3 days DISPOSITION: 01 Home, Self-Care. DISCHARGE INSTRUCTIONS: Stop smoking marijuana ITEMS TO FOLLOWUP ON ON OUTPATIENT: Follow-up with PCP and GI team DISCHARGE CONDITION: [Stable]. TIME SPENT ON DISCHARGE: 40 minutes. Vital Signs/I&Os Vital Signs Date Time Temp Pulse Resp B/P (MAP) Pulse Ox O2 Delivery O2 Flow Rate FiO2 03/15/21 11:21 18 03/15/21 05:53 98.2 74 104/62 (76) 100 Room Air 03/14/21 06:14 3.0 I&O- Last 24 Hours up to 6 AM 03/15/21 06:00 Intake Total 3190.1455 ml Output Total 250 ml Balance 2940.1455 ml Laboratory Data Labs 24H Laboratory Tests 2 03/15/21 06:30: Nucleated Red Blood Cells % (auto) 0.0, Anion Gap 9, Glomerular Filtration Rate > 60.0, Calcium Level 8.2L, Magnesium Level 1.8, Total Bilirubin 0.4, Aspartate Amino Transf (AST/SGOT) 22, Alanine Aminotransferase (ALT/SGPT) 18, Alkaline Phosphatase 84, Total Protein 5.4#L, Albumin 2.3#L, Albumin/Globulin Ratio 0.7L CBC/BMP Laboratory Tests 03/15/21 06:30 Discharge Medications Scheduled Amitriptyline HCl (Amitriptyline HCl) 25 Mg Tablet, 25 MG PO QHS Amoxicillin/Potassium Clav (Amox-Clav 875-125 mg Tablet) 1 Each Tablet, 1 TAB PO BID, (Reported) FILLED 03/13/21 FOR 10 DAYS Lurasidone HCl (Latuda) 80 Mg Tablet, 80 MG PO QPM, (Reported) Omeprazole (Omeprazole) 40 Mg Capsule.dr, 40 MG PO DAILY Quetiapine Fumarate (Quetiapine Fumarate) 100 Mg Tablet, 100 MG PO QHS, (Reported) Sucralfate (Sucralfate) 1 Gm/10 Ml Oral.susp, 10 ML PO QID Scheduled PRN Acetaminophen (Acetaminophen) 325 Mg Tablet, 650 MG PO Q4H PRN for MILD PAIN or TEMP > 101 Hydrocodone/Acetaminophen (Hydrocodone-Acetamin 5-325 mg) 1 Each Tablet, 1 TAB PO Q4H PRN for MODERATE/SEVERE PAIN (PS 5-10), (Reported) Hydroxyzine HCl (Hydroxyzine HCl) 10 Mg Tablet, 10 MG PO BID PRN for ANXIETY, (Reported) Allergies Coded Allergies: No Known Allergies (Unverified , 04/17/20) FELIX OBANDO DO Mar 15, 2021 15:44
== END 2021-03-15 12:59 | disposition home or self-care (01) ==
LOC: M ED 05:05 → UNDOADMOB 05:06 → M ED INP 05:06 → ENRESERV 17:00 → M MSPAV 17:49
PROVIDERS: ADMIT Internal Medicine; ATTEND Internal Medicine
DX: T40.7X1A Poisoning by cannabis (derivatives), accidental (unintentional), initial encounter (principal); R11.2 Nausea with vomiting, unspecified; F12.188 Cannabis abuse with other cannabis-induced disorder; F43.10 Post-traumatic stress disorder, unspecified; F32.9 Major depressive disorder, single episode, unspecified; F41.9 Anxiety disorder, unspecified; Z79.899 Other long term (current) drug therapy; R10.9 Unspecified abdominal pain
CPT/HCPCS: 36415; 71045; 71275; 74177; 80048; 80053; 80076; 80307; 81001; 82550; 82553; 83605; 83690; 83735; 84484; 84703; 85025; 85027; 87631; 93005; 96361; 96365; 96372; 96375; 96376; 99285; C9113; J1630; J1644; J2270; J2405; Q9967

== ENCOUNTER 2021-11-23 14:57 | Emergency (ER) | payer OTHER ==
[~2021-11-23] VITALS: Ht 162.6 cm; Wt 74.5 kg
[~2021-11-23 14:57] MED LIST changes: +ACET1TAB55 PO; +AMIT25TA17 PO; +AMOX875T2 PO; +HYDR-4571 PO; +IBUP-1720 PO; -LATU80TA PO; +LATU80TA2 PO; +LEXA1TAB PO; +OMEP40CA4 PO; +SUCR1ORA PO
[2021-11-23 15:05] VITALS: BP 122/66
[2021-11-23] MEDS ORDERED: MORPHINE 4 MG/ML 1ML VIAL/SYRINGE IV ONE (15:30)
[2021-11-23] MEDS ORDERED: NS 1,000 ML IV ONE (15:30)
[2021-11-23] MEDS ORDERED: ONDANSETRON 4MG/2ML VIAL IV ONE (15:30)
[2021-11-23 15:53] LABS: BASO # 0.1 10^3/uL (0.0-0.2); BASO % 0.9 % (0.0-1.0); EOS # 0.2 10^3/uL (0.0-0.5); EOS % 2.1 % (0.0-3.0); HEMATOCRIT 42.2 % (36.0-47.0); HEMOGLOBIN 14.3 g/dl (12.0-15.5); LYMPH # 3.3 10^3/uL (1.5-5.0); LYMPH % 30.5 % (24.0-44.0); MEAN CORPUSCULAR HEMOGLOBIN 28.4 pg (27.0-33.0); MEAN CORPUSCULAR HGB CONC 33.9 g/dl (32.0-36.5); MEAN CORPUSCULAR VOLUME 83.7 fl (80.0-96.0); MONO # 0.9 10^3/uL (0.0-0.8); MONO % 8.1 % (2.0-8.0); NEUTROPHILS # 6.2 10^3/uL (1.5-8.5); NEUTROPHILS % 57.6 % (36.0-66.0); PLATELET COUNT, AUTOMATED 408 10^3/uL (150-450); RED BLOOD COUNT 5.04 10^6/uL (4.00-5.40); WHITE BLOOD COUNT 10.8 10^3/uL (4.0-10.0)
[2021-11-23 16:01] LABS: AMPHETAMINES LEVEL URINE NEGATIVE (NEGATIVE); BARBITURATES URINE NEGATIVE (NEGATIVE); BENZODIAZEPINES URINE NEGATIVE (NEGATIVE); CANNABINOIDS URINE POSITIVE (NEGATIVE); COCAINE METABOLITE URINE NEGATIVE (NEGATIVE); METHADONE URINE NEGATIVE (NEGATIVE); OPIATES URINE NEGATIVE (NEGATIVE); PHENCYCLIDINE URINE NEGATIVE (NEGATIVE)
[2021-11-23] MEDS ORDERED: ISOVUE-370 76% 100ML VIAL As Ordered ONE (16:09)
[2021-11-23 16:11] LABS: ALBUMIN 3.3 GM/DL (3.2-5.2); ALT/SGPT 27 U/L (12-78); BILIRUBIN,DIRECT < 0.1 MG/DL (0.0-0.2); BILIRUBIN,TOTAL 0.5 MG/DL (0.2-1.0); LIPASE 99 U/L (73-393); TOTAL PROTEIN 7.4 GM/DL (6.4-8.2)
[2021-11-23] MEDS ORDERED: PROC10TA5 PO (17:28)
[2021-11-23] MEDS ORDERED: DICY10CA13 PO (17:28)
[2021-11-23] MEDS ORDERED: DICYCLOMINE 10 MG CAP PO ONE (17:35)
== END 2021-11-23 18:06 | disposition home or self-care (01) ==
LOC: M ED 14:57
DX: R10.9 Unspecified abdominal pain (principal); R19.7 Diarrhea, unspecified; R51.9 Headache, unspecified; Z79.899 Other long term (current) drug therapy
CPT/HCPCS: 74177; 80047; 80076; 80307; 81001; 83690; 84132; 85025; 96361; 96374; 96375; 99284; J2270; J2405; Q9967